=== PATIENT | male | born 1965 | race Caucasian/White ===

== ENCOUNTER 2017-09-12 09:30 | Outpatient (RCR) | payer BC, SELFPAY | END 2017-09-12 09:31 | disposition home or self-care (01) | LOC: PT 09:30 | PROVIDERS: Visit Provider Physical Medicine & Rehabilitation | DX: I63.9 Cerebral infarction, unspecified (principal) | CPT/HCPCS: 97010; 97014; 97110; 97112; 97116; G0283 ==

== ENCOUNTER → 2018-01-28 15:19 | Outpatient (POV) | payer MEDICAID, SELFPAY ==
[2018-01-28 15:41] VITALS: BP 180/95; PULSE 78; RESP 18; O2SAT 98
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
== END ==
PROVIDERS: PCP Emergency Medicine; Visit Provider Clinical Nurse Specialist Family Health
DX: M50.10 Cervical disc disorder with radiculopathy, unspecified cervical region (principal); M51.36 Other intervertebral disc degeneration, lumbar region
CPT/HCPCS: 99202

== ENCOUNTER → 2018-02-08 15:48 | Outpatient (CLI) | payer MEDICAID, SELFPAY ==
[2018-02-08 19:16] LABS: Amphetamine/Metha Screen,Urine Negative ng/mL (<1000); Barbiturates Screen,Urine Negative ng/mL (<200); Benzodiazepines Screen,Urine Negative ng/mL (<200); Cannabinoid Screen,Urine Negative ng/mL (<50); Cocaine Screen,Urine Negative ng/mL (<300); Methadone Screen,Urine Negative ng/mL (<300); Opiate Screen,Urine Positive ng/mL (<300); Phencyclidine Screen,Urine Negative ng/mL (<25)
== END ==
PROVIDERS: Visit Provider Emergency Medicine
DX: Z79.899 Other long term (current) drug therapy (principal)
CPT/HCPCS: 80305

== ENCOUNTER → 2018-03-12 18:17 | Outpatient (CLI) | payer MEDICAID, SELFPAY ==
[2018-03-12 20:51] LABS: Amphetamine/Metha Screen,Urine Negative ng/mL (<1000); Barbiturates Screen,Urine Negative ng/mL (<200); Benzodiazepines Screen,Urine Negative ng/mL (<200); Cannabinoid Screen,Urine Negative ng/mL (<50); Cocaine Screen,Urine Negative ng/mL (<300); Methadone Screen,Urine Negative ng/mL (<300); Opiate Screen,Urine Positive ng/mL (<300); Phencyclidine Screen,Urine Negative ng/mL (<25)
== END ==
PROVIDERS: Visit Provider Emergency Medicine
DX: Z79.899 Other long term (current) drug therapy (principal)
CPT/HCPCS: 80305

== ENCOUNTER → 2018-03-18 13:42 | Outpatient (POV) | payer MEDICAID, SELFPAY ==
--- NOTE | 2018-03-18 14:17 | P.CONS_ITS ---
[facility] Pain Management SOAP Note Subjective:: Patient is a pleasant 52-year-old white male who presents today for follow-up after cervical epidural steroid injection. Patient did get 3 or 4 days of relief however all of his pain has returned. Patient states most of his pain just stays in his lower neck. Patient states is worse when he makes any kind of turning movement. Patient does have an MRI showing facet joint arthropathy. Patient and I had a long conversation about medial branch blocks. Patient rates his pain a 5 out of 10 today. ROS General: no recent weight change, no fever, no sleep disturbances Respiratory: no cough, no shortness of air, no recurring pulmonary infections Cardiovascular/Peripheral Vascular: No chest pain, No palpitations, no edema, no shortness of breath. Gastrointestinal: no incontinence, normal bowel movements reported Genitourinary: no incontinence Musculoskeletal: Neck pain Psychiatric: normal mood/ affect, [denies depression], [denies anxiety] Neurological: [denies weakness in extremities], [denies balance issues] Objective:: Physical Exam General: Alert and oriented x3, no acute distress, pleasant and cooperative, [on room air] Lungs: Resps E/U, Symmetrical chest expansion, Eyes: PERRL Musculoskeletal: Flexion and extension of cervical spine somewhat guarded secondary to pain, deep tendon reflexes normal, strength in upper and lower extremities [5/5], [abnormal gait noted], positive facet loading cervical spine, positive Spurling's test Neurological: speech clear, chief technologist equal, no gross sensory deficits Assessment:: Degenerative disc disease 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 Patient and I discussed also neuro stimulation. I will give him information in regards to this. Patient is continuing a home stretching program. Patient is on anti-inflammatories. I will follow-up with him after his injection. Patient has tried and failed multiple modalities of treatment including physical therapy and oral medications. Patient is not on any anticoagulation therapy. This note was dictated using voice recognition software and may contain errors or omissions
[2018-03-18 14:24] VITALS: BP 156/89; PULSE 80; RESP 18; O2SAT 98; BMI 26.5
== END ==
PROVIDERS: PCP Emergency Medicine; Visit Provider Clinical Nurse Specialist Family Health
DX: M50.10 Cervical disc disorder with radiculopathy, unspecified cervical region (principal); M54.02 Panniculitis affecting regions of neck and back, cervical region
CPT/HCPCS: 99213

== ENCOUNTER → 2018-04-10 18:16 | Outpatient (CLI) | payer MEDICAID, SELFPAY ==
[2018-04-10 19:20] LABS: Anion Gap 13.6 mEq/L (5-15); Blood Urea Nitrogen 12 mg/dL (7-18); Calcium 9.4 mg/dL (8.5-10.1); Carbon Dioxide 27 mmol/L (21.0-32.0); Chloride 102 mmol/L (98-107); Creatinine,Serum 1.13 mg/dL (0.70-1.30); Estimated Glomerular Filt Rate 68 ml/min (>60); GFR (African American) 83 ML/MIN (>60); Glucose 115 mg/dL (74-106); Potassium 3.6 mmoL/L (3.5-5.1); Sodium 139 mmol/L (136-145)
[2018-04-10 22:43] LABS: Amphetamine/Metha Screen,Urine Negative ng/mL (<1000); Barbiturates Screen,Urine Negative ng/mL (<200); Benzodiazepines Screen,Urine Negative ng/mL (<200); Cannabinoid Screen,Urine Positive ng/mL (<50); Cocaine Screen,Urine Negative ng/mL (<300); Methadone Screen,Urine Negative ng/mL (<300); Opiate Screen,Urine Positive ng/mL (<300); Phencyclidine Screen,Urine Negative ng/mL (<25)
== END ==
PROVIDERS: Visit Provider Emergency Medicine
DX: Z79.899 Other long term (current) drug therapy (principal); I10 Essential (primary) hypertension
CPT/HCPCS: 80048; 80305

== ENCOUNTER → 2018-05-08 18:53 | Outpatient (CLI) | payer MEDICAID, SELFPAY ==
[2018-05-08 19:11] LABS: Amphetamine/Metha Screen,Urine Negative ng/mL (<1000); Barbiturates Screen,Urine Negative ng/mL (<200); Benzodiazepines Screen,Urine Negative ng/mL (<200); Cannabinoid Screen,Urine Positive ng/mL (<50); Cocaine Screen,Urine Negative ng/mL (<300); Methadone Screen,Urine Negative ng/mL (<300); Opiate Screen,Urine Negative ng/mL (<300); Phencyclidine Screen,Urine Negative ng/mL (<25)
[2018-05-14 09:21] LABS: Oxycodone (GC/MS) 377 ng/mL (Cutoff=100)
[2018-05-15 13:04] LABS: Opiates Negative (Cutoff=100); Oxymorphone (GC/MS) 1391 ng/mL (Cutoff=100)
== END ==
PROVIDERS: Visit Provider Emergency Medicine
DX: Z79.899 Other long term (current) drug therapy (principal)
CPT/HCPCS: 80305; 80361; 80365; G0480

== ENCOUNTER → 2018-05-13 12:45 | Outpatient (POV) | payer MEDICAID, SELFPAY ==
[2018-05-13 13:03] VITALS: BP 148/90; PULSE 81; RESP 18; O2SAT 98; BMI 26.6
--- NOTE | 2018-05-13 13:26 | HMH.PAINSOAP ---
[facility] Pain Management SOAP Note Subjective:: 52-year-old white male who presents today for follow-up after cervical facet joint injections. Patient states that he does not recall it helping much however he has had a new back pain that is been worse. He states he feels a pinching in his back. He has no recent MRI imaging. Patient was seen by his primary care physician and given Percocet. Patient has not taken this yet. Patient states that the pain is in his mid low back radiating into both legs. He states he has weakness as well. Patient was seen by a neurologist at to be analyzed for MS however he has not heard back from them. He rates his pain a 9 out of 10 today. Comparing it to kidney stone pain is the only pain that has been worse. ROS General: no recent weight change, no fever, no sleep disturbances Respiratory: no cough, no shortness of air, no recurring pulmonary infections Cardiovascular/Peripheral Vascular: No chest pain, No palpitations, no edema, no shortness of breath. Gastrointestinal: no incontinence, normal bowel movements reported Genitourinary: no incontinence Musculoskeletal: Back pain, leg pain Psychiatric: normal mood/ affect Neurological: [denies weakness in extremities], [denies balance issues] Objective:: Physical Exam General: Alert and oriented x3, no acute distress, pleasant and cooperative, [on room air] Lungs: Resps E/U, Symmetrical chest expansion, Eyes: PERRL Musculoskeletal: Flexion and extension of lumbar spine somewhat guarded secondary to pain, deep tendon reflexes normal, strength in upper and lower extremities [5/5], [abnormal gait noted] Neurological: speech clear, brass finisher equal, no gross sensory deficits Assessment:: Degenerative disc disease cervical and lumbar spine with lumbar radiculopathy Plan:: We will send the patient to Dr. Mckenzie for evaluation in regards to the MS. We will also get a new MRI to determine new pathology. We will also give him a few days worth of steroids to help with the increased pain. This note was dictated using voice recognition software and may contain errors or omissions
--- NOTE | 2018-05-13 13:29 | P.CONS_ITS ---
[facility] Pain Management SOAP Note Subjective:: 52-year-old white male who presents today for follow-up after cervical facet joint injections. Patient states that he does not recall it helping much however he has had a new back pain that is been worse. He states he feels a pinching in his back. He has no recent MRI imaging. Patient was seen by his primary care physician and given Percocet. Patient has not taken this yet. Patient states that the pain is in his mid low back radiating into both legs. He states he has weakness as well. Patient was seen by a neurologist at to be analyzed for MS however he has not heard back from them. He rates his pain a 9 out of 10 today. Comparing it to kidney stone pain is the only pain that has been worse. ROS General: no recent weight change, no fever, no sleep disturbances Respiratory: no cough, no shortness of air, no recurring pulmonary infections Cardiovascular/Peripheral Vascular: No chest pain, No palpitations, no edema, no shortness of breath. Gastrointestinal: no incontinence, normal bowel movements reported Genitourinary: no incontinence Musculoskeletal: Back pain, leg pain Psychiatric: normal mood/ affect Neurological: [denies weakness in extremities], [denies balance issues] Objective:: Physical Exam General: Alert and oriented x3, no acute distress, pleasant and cooperative, [on room air] Lungs: Resps E/U, Symmetrical chest expansion, Eyes: PERRL Musculoskeletal: Flexion and extension of lumbar spine somewhat guarded secon oneil to pain, deep tendon reflexes normal, strength in upper and lower extremities [5/5], [abnormal gait noted] Neurological: speech clear, fence erector equal, no gross sensory deficits Assessment:: Degenerative disc disease cervical and lumbar spine with lumbar radiculopathy Plan:: We will send the patient to Dr. Mckenzie for evaluation in regards to the MS. We will also get a new MRI to determine new pathology. We will also give him a few days worth of steroids to help with the increased pain. This note was dictated using voice recognition software and may contain errors or omissions
== END ==
PROVIDERS: PCP Emergency Medicine; Visit Provider Clinical Nurse Specialist Family Health
DX: M50.30 Other cervical disc degeneration, unspecified cervical region (principal); M51.16 Intervertebral disc disorders with radiculopathy, lumbar region
CPT/HCPCS: 99213

== ENCOUNTER → 2018-05-27 13:13 | Outpatient (POV) | payer MEDICAID, SELFPAY ==
--- NOTE | 2018-05-27 13:51 | HMH.PAINSOAP ---
[facility] Pain Management SOAP Note Subjective:: Patient is a pleasant 52-year-old white male who presents today for follow-up. Patient was denied his MRI. Patient is continuing his stretching program he still having quite a bit of low back pain. Patient does have a history of degenerative disc disease. Patient was also seen at to determine if potentially he had MS. We have tried to refer him to Dr. Mckenzie. Dr. Mckenzie's offices that at this time she has denied his referral. Patient not have a way to get to . He rates his pain a 9 out of 10. Mostly in his low back and legs. ROS General: no recent weight change, no fever, no sleep disturbances Respiratory: no cough, no shortness of air, no recurring pulmonary infections Cardiovascular/Peripheral Vascular: No chest pain, No palpitations, no edema, no shortness of breath. Gastrointestinal: no incontinence, normal bowel movements reported Genitourinary: no incontinence Musculoskeletal: Back pain, leg pain Psychiatric: normal mood/ affect Neurological: [denies weakness in extremities], [denies balance issues] Objective:: Physical Exam General: Alert and oriented x3, no acute distress, pleasant and cooperative, [on room air] Lungs: Resps E/U, Symmetrical chest expansion, Eyes: PERRL Musculoskeletal: Flexion and extension of lumbar spine somewhat guarded secondary to pain, deep tendon reflexes normal, strength in upper and lower extremities [5/5], [abnormal gait noted] positive straight leg test bilaterally at 30 degrees Neurological: speech clear, group home worker equal, no gross sensory deficits Assessment:: Degenerative disc disease cervical and lumbar spine with lumbar radiculopathy Plan:: We will set him up for an L4-L5 lumbar epidural steroid injection with another attempt at getting a lumbar MRI to determine new pathology given his new and increased pain. I will follow-up with up after this. He denied any anti-coagulation therapy. He is currently on anti-inflammatories. Dr. Rodriguez has reviewed this note and agrees with this plan of care. This note was dictated using voice recognition software and may contain errors or omissions
[2018-05-27 14:02] VITALS: BP 132/81; PULSE 75; RESP 18; O2SAT 98; BMI 26.6
--- NOTE | 2018-05-27 14:04 | P.CONS_ITS ---
[facility] Pain Management SOAP Note Subjective:: Patient is a pleasant 52-year-old white male who presents today for follow-up. Patient was denied his MRI. Patient is continuing his stretching program he still having quite a bit of low back pain. Patient does have a history of degenerative disc disease. Patient was also seen at to determine if potentially he had MS. We have tried to refer him to Dr. Mckenzie. Dr. Mckenzie's offices that at this time she has denied his referral. Patient not have a way to get to . He rates his pain a 9 out of 10. Mostly in his low back and legs. ROS General: no recent weight change, no fever, no sleep disturbances Respiratory: no cough, no shortness of air, no recurring pulmonary infections Cardiovascular/Peripheral Vascular: No chest pain, No palpitations, no edema, no shortness of breath. Gastrointestinal: no incontinence, normal bowel movements reported Genitourinary: no incontinence Musculoskeletal: Back pain, leg pain Psychiatric: normal mood/ affect Neurological: [denies weakness in extremities], [denies balance issues] Objective:: Physical Exam General: Alert and oriented x3, no acute distress, pleasant and cooperative, [on room air] Lungs: Resps E/U, Symmetrical chest expansion, Eyes: PERRL Musculoskeletal: Flexion and extension of lumbar spine somewhat guarded secondary to pain, deep tendon reflexes normal, strength in upper and lower extremities [5/5], [abnormal gait noted] positive straight leg test bilaterally at 30 degrees Neurological: speech clear, orthopedics nurse equal, no gross sensory deficits Assessment:: Degenerative disc disease cervical and lumbar spine with lumbar radiculopathy Plan:: We will set him up for an L4-L5 lumbar epidural steroid injection with another attempt at getting a lumbar MRI to determine new pathology given his new and increased pain. I will follow-up with up after this. He denied any anti- coagulation therapy. He is currently on anti-inflammatories. Dr. Rodriguez has reviewed this note and agrees with this plan of care. This note was dictated using voice recognition software and may contain errors or omissions
== END ==
PROVIDERS: PCP Emergency Medicine; Visit Provider Clinical Nurse Specialist Family Health
DX: M51.16 Intervertebral disc disorders with radiculopathy, lumbar region (principal)
CPT/HCPCS: 99213

== ENCOUNTER → 2018-06-18 08:41 | Outpatient (POV) | payer MEDICAID, SELFPAY ==
[2018-06-18 08:56] VITALS: BP 156/92; PULSE 71; RESP 18; O2SAT 99; BMI 26.6
--- NOTE | 2018-06-18 09:49 | HMH.PAINSOAP ---
[facility] Pain Management SOAP Note Subjective:: Patient is a pleasant 52-year-old white male who presents today for follow-up. Patient has been denied for a epidural injection. He is also been denied for an MRI. Patient states he has a new pain in his back which is a pinching sensation. Patient rates his pain today an 8 out of 10. Patient is currently doing a home exercise program however he is not getting much relief from it. He is on anti-inflammatories. He has had this pain for over 4 months. ROS General: no recent weight change, no fever, no sleep disturbances Respiratory: no cough, no shortness of air, no recurring pulmonary infections Cardiovascular/Peripheral Vascular: No chest pain, No palpitations, no edema, no shortness of breath. Gastrointestinal: no incontinence, normal bowel movements reported Genitourinary: no incontinence Musculoskeletal: Back pain, leg pain Psychiatric: normal mood/ affect, [denies depression], [denies anxiety] Neurological: Weakness in bilateral lower extremities, [denies balance issues] Objective:: Physical Exam General: Alert and oriented x3, no acute distress, pleasant and cooperative, [on room air] Lungs: Resps E/U, Symmetrical chest expansion, Eyes: PERRL Musculoskeletal: Flexion and extension of lumbar spine somewhat guarded secondary to pain, deep tendon reflexes normal, strength in upper extremities 5/5 and lower extremities [4/5], [abnormal gait noted] Neurological: speech clear, waistline joiner equal, sensory deficit to touch bilateral lower extremities Assessment:: Degenerative disc disease lumbar spine with lumbar radiculopathy Plan:: Patient does have an MRI of his thoracic spine showing potential compression in his lower back. I believe an MRI or epidural injection would be beneficial for the patient. We will discuss this with his insurance company and reassess his options. Dr. Rodriguez has reviewed this note and agrees with this plan of care. This note was dictated using voice recognition software and may contain errors or omissions
--- NOTE | 2018-06-18 09:52 | P.CONS_ITS ---
[facility] Pain Management SOAP Note Subjective:: Patient is a pleasant 52-year-old white male who presents today for follow-up. Patient has been denied for a epidural injection. He is also been denied for an MRI. Patient states he has a new pain in his back which is a pinching sensation. Patient rates his pain today an 8 out of 10. Patient is currently doing a home exercise program however he is not getting much relief from it. He is on anti-inflammatories. He has had this pain for over 4 months. ROS General: no recent weight change, no fever, no sleep disturbances Respiratory: no cough, no shortness of air, no recurring pulmonary infections Cardiovascular/Peripheral Vascular: No chest pain, No palpitations, no edema, no shortness of breath. Gastrointestinal: no incontinence, normal bowel movements reported Genitourinary: no incontinence Musculoskeletal: Back pain, leg pain Psychiatric: normal mood/ affect, [denies depression], [denies anxiety] Neurological: Weakness in bilateral lower extremities, [denies balance issues] Objective:: Physical Exam General: Alert and oriented x3, no acute distress, pleasant and cooperative, [on room air] Lungs: Resps E/U, Symmetrical chest expansion, Eyes: PERRL Musculoskeletal: Flexion and extension of lumbar spine somewhat guarded secondary to pain, deep tendon reflexes normal, strength in upper extremities 5/5 and lower extremities [4/5], [abnormal gait noted] Neurological: speech clear, animal caretaker equal, sensory deficit to touch bilateral lowe r extremities Assessment:: Degenerative disc disease lumbar spine with lumbar radiculopathy Plan:: Patient does have an MRI of his thoracic spine showing potential compression in his lower back. I believe an MRI or epidural injection would be beneficial for the patient. We will discuss this with his insurance company and reassess his options. Dr. Rodriguez has reviewed this note and agrees with this plan of care. This note was dictated using voice recognition software and may contain errors or omissions
== END ==
PROVIDERS: PCP Emergency Medicine; Visit Provider Clinical Nurse Specialist Family Health
DX: M51.16 Intervertebral disc disorders with radiculopathy, lumbar region (principal)
CPT/HCPCS: 99213

== ENCOUNTER 2018-07-23 14:50 | Observation (INO) ==
--- NOTE | 2018-07-23 15:26 | Emergency Department Note ---
ED Disposition Clinical Impression: Chest pain Qualifiers: Chest pain type: unspecified Qualified Code(s): R07.9 - Chest pain, unspecified Dyspnea Qualifiers: Dyspnea type: shortness of breath Qualified Code(s): R06.02 - Shortness of breath Disposition: Admitted as Observation Condition on Discharge: Good - Critical Care Critical Care Time: No Attestation: On 07/23/18, the high probability of a clinically significant, sudden or life threatening deterioration of the following system(s) required my full and direct attention, intervention and personal management. The time I documented below is in addition to time spent performing reported procedures but includes the following listed in this critical care notation. Medical Decision Making - Anurag Inquiry Pt receiving controlled substance: No Vital Signs: 07/23/18 14:54 07/23/18 15:22 07/23/18 15:25 Temperature 98.0 F Temperature Source Oral Pulse Rate [Right Radial] 88 69 67 Respiratory Rate 18 20 Blood Pressure [Right Arm] 165/102 H 165/102 H 150/87 H Blood Pressure Mean [Right Arm] 123 123 108 Blood Pressure Source [Right Arm] Automatic Cuff Automatic Cuff Automatic Cuff Blood Pressure Position [Right Arm] Sitting Sitting Sitting 02 Sat by Pulse Oximetry 99 98 98 Oxygen Delivery Method Room Air Room Air Room Air 07/23/18 16:25 Temperature Temperature Source Pulse Rate [Right Radial] 83 Respiratory Rate 18 Blood Pressure [Right Arm] 163/108 H Blood Pressure Mean [Right Arm] 126 Blood Pressure Source [Right Arm] Automatic Cuff Blood Pressure Position [Right Arm] Sitting 02 Sat by Pulse Oximetry 96 Oxygen Delivery Method Room Air - Lab Data Lab Results 07/23/18 15:18: WBC 8.6, RBC 5.16, Hgb 15.2, Hct 46.1, MCV 89.2, MCH 29.5, MCHC 33.0, RDW 13.8, Plt Count 243, MPV 7.5, Neut % (Auto) 60.5, Lymph % (Auto) 29.5, [place] % (Auto) 7.0, Eos % (Auto) 2.0, Baso % (Auto) 0.9, Neut # (Auto) 5.2, Lymph # (Auto) 2.5, [place] # (Auto) 0.6, Eos # (Auto) 0.2, Baso # (Auto) 0.1 07/23/18 15:18: Sodium 140, Potassium 3.9, Chloride 103, Carbon Dioxide 27, Anion Gap 13.9, BUN 9, Creatinine 1.21, Estimated Creat Clear 84, Estimated GFR 63, Est GFR ( Amer) 76, Glucose 98, Calcium 9.5, Total Bilirubin 0.5, AST 18, ALT 21, Alkaline Phosphatase 64, Troponin I < 0.02, Total Protein 7.7, Albumin 4.1, Globulin 3.6 H, Albumin/Globulin Ratio 1.1 07/23/18 17:09: Urine Color Yellow, Urine Appearance Clear, Urine pH 7.5, Ur Specific [place] 1.015, Urine Protein Negative, Urine Glucose (UA) Negative, Urine Ketones Negative, Urine Blood 1+, Urine Nitrate Negative, Urine Bilirubin Negative, Urine Urobilinogen 0.2, Ur Leukocyte Esterase 2+ A, Urine RBC Occasional, Urine WBC 10-20, Ur Squamous Epith Cells Occasional, Urine Bacteria Trace Result diagrams: 07/23/18 15:18 07/23/18 15:18 Orders (Tests/Meds): ED MEDICATIONS Generic Name Dose Route Start Last Admin Trade Name Cindy PRN Reason Stop Dose Admin Amlodipine Besylate 10 mg 07/24/18 09:00 Norvasc 10mg Tablet PO 08/23/18 08:59 DAILY MICHAEL Aspirin 81 mg 07/24/18 09:00 Aspirin 81mg Enteric Coated Tablet PO 08/23/18 08:59 DAILY [facility] Atorvastatin Calcium 40 mg 07/24/18 09:00 Lipitor 40mg Tablet PO 08/23/18 08:59 DAILY [facility] Lisinopril 20 mg 07/23/18 21:00 Zestril 20mg Tab PO 08/22/18 20:59 BID [facility] Oxycodone/Acetaminophen 1 each 07/23/18 16:31 Percocet 5/325mg Tablet PO 08/22/18 16:30 BID PRN pain Sodium Chloride 10 ml 07/23/18 16:31 Saline Flush 10ml Syringe IV 08/22/18 15:07 NEEDED PRN Maintain IV Site Discontinued Medications Generic Name Dose Route Start Last Admin Trade Name Frekimberly PRN Reason Stop Dose Admin Ondansetron HCl 4 mg 07/23/18 17:11 07/23/18 17:13 Zofran 4mg/2ml Vial IV 07/23/18 17:12 4 mg ONCE ONE Administration Oxycodone/Acetaminophen 1 each 07/23/18 17:17 07/23/18 17:19 Percocet 5/325mg Tablet PO 07/23/18 17:18 1 each ONCE ONE Administration Sodium Chloride 10 ml 07/23/18 15:08 Saline Flush 10ml Syringe IV 08/22/18 15:07 NEEDED PRN Maintain IV Site ORDERS Category Date Time Status Consult to Physician [CONS] Routine Cons 07/23/18 16:31 Ordered Troponin I Q3H Lab 07/23/18 22:15 Ordered - ECG Data Tracing #1 EKG interpreted by Romie Martínez MD: Rhythm: sinus Rate: 73 [place]: normal Ectopy: none Conduction: normal ST Segment Changes: none T Wave Changes: none Q Waves: none No evidence of acute ischemia or injury Baseline artifact present, but I consider the EKG adequate for accurate i nterpretation. - NERIS Score for Non-Stemi Age of Patient: 50-59 years old Heart Rate: 70-89 bpm Systolic Blood Pressure: 160-199 mmHg Serum Creatinine: 1.20-1.59 mg/dl CHF [place] Class: I-No CHF Other Risk Factors: None Non-Stemi Risk Score: 70 General Adult HPI - General Chief complaint: Shortness of Breath/Dyspnea Stated complaint: feels funny, high blood pressure Time Seen by Provider: 07/23/18 15:25 Mode of Arrival: Ambulatory Limitations: No Limitations Description of Symptoms (Recalled from ER Triage Doc. by RN): Pt reports SOA x3 days. Pt reports lastnight he felt like he had something sitting on his chest. Pt denies cough. Pt reports he was seen at PCP office today for a check up and send to ER for further evaluation. Pt denies SOA - History of Present Illness HPI narrative: States before bed a couple of days ago he developed heaviness or pressure in his chest with shortness of breath. It lasted a couple of hours and then he went to bed. It was still there when he went to sleep. It was much better when he got up but he does not know that it was completely gone. It occurred again last night except only with shortness of breath, no chest pressure. Again it lasted a couple of hours. Today he says he just seems to have trouble getting a deep breath. He already had a routine appointment with Dr. Thakur today to get his medications refilled and saw him about this as well. Sent to the emergency room for workup and to be admitted for cardiac evaluation. The patient has hypertension and hyperlipidemia. Prior stroke. Former smoker for 40 years, quit earlier this year. No known coronary artery disease. Father had some sort of heart problem, otherwise no family history of coronary artery disease known. The patient does not have diabetes. He has not had prior cardiac workup. Dr. Thakur states that he will call Dr. Silverman. - Related Data Home Medications Medication Instructions Recorded Confirmed aspirin 81 mg tablet,delayed 81 mg PO DAILY tab 08/22/17 07/23/18 release Previous Rx's Medication Instructions Recorded amlodipine 10 mg tablet 10 mg PO DAILY #90 tab 04/05/18 atorvastatin 40 mg tablet 40 mg PO DAILY #90 tab 04/05/18 lisinopril 20 mg tablet 20 mg PO BID #180 tab 04/05/18 oxycodone-acetaminophen 5 mg-325 1 tab PO BID PRN #60 tab 05/08/18 mg tablet Allergies Allergy/AdvReac Type Severity Reaction Status Date / Time No Known Allergies Allergy Verified 05/08/18 15:47 [facility] History - Hepatitis A Screen Drug use history?: No High risk sexual behaviors?: No History of sexually transmitted infection?: No Currently employed?: No Childcare worker?: No Do you have indoor plumbing?: Yes Do you have electricity?: Yes Attestation statement:: This patient has been screened for Hepatitis A risk factors. I have reviewed the patient's past medical history: Yes Medical History: Reports:: Cerebrovascular Accident, Hyperlipidemia, Hypertension, Transient Ischemic Attacks (TIA) Denies:: Cancer, Diabetes Mellitus Type 1, Diabetes Mellitus Type 2, MRSA, Seizures Other Medical History: Denies: Blood Transfusion Reaction Other Surgeries: Yes: No Previous Surgery Amputation: No Fractures: Yes (back) Comment: broken back x 2 - Social History Smoking Status: Former smoker Tobacco Type: cigarettes # Packs/Day (cigarettes): 2 Alcohol Intake: never Alcohol Intake Frequency:: holidays/special occasions only Substance Use Type: denies use Occupational Status: unemployed, disabled Housing: house Household Members: none - Psychiatric History Expresses thoughts of harming self/others: None Suicide Plan Description: No Plan Family Hx:: Cancer ROS Obtained: Yes All systems reviewed & no additional complaints - Constitutional Constitutional: Denies fever(s) - ENT Ears, Nose, Mouth, and Throat: Denies nasal congestion, Denies nasal discharge, Denies sore throat - Cardiovascular Cardiovascular: Reports chest pain (Heaviness), Denies diaphoresis, Denies leg edema - Respiratory Respiratory: No cough, Yes dyspnea - Gastrointestinal Gastrointestingal: Denies: abdominal pain, nausea, vomiting - Musculoskeletal Musculoskeletal: Reports other (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 Absent: respiratory distress - Cardiovascular Cardiovascular exam: Present: regular rate, normal rhythm, normal heart sounds - Abdominal Exam Abdominal exam: Present: soft. Absent: distention, tenderness - Extremities Exam Extremities exam: Absent: tenderness - Neurological Exam Neurological exam: Present: alert, oriented X3 - Psychiatric Psychiatric exam: Present: normal affect, normal mood - Skin Skin exam: Present: warm, dry
[2018-07-23 15:47] LABS: Basophils # 0.1 K/mm3 (0-0.2); Basophils % 0.9 % (0.1-2.0); Eosinophils # 0.2 K/mm3 (0.0-0.4); Hematocrit 46.1 % (42.0-52.0); Hemoglobin 15.2 g/dL (14.1-18.0); Lymphocytes # 2.5 K/mm3 (0.7-4.5); Lymphocytes % 29.5 % (10-50); Mean Corpuscular Hemoglobin 29.5 pg (27.0-31.2); Mean Corpuscular Volume 89.2 fl (80-94); Mean Platelet Volume 7.5 fl (7.4-10.4); Monocytes # 0.6 K/mm3 (0.1-1.0); Neutrophils # 5.2 K/mm3 (1.8-7.8); Neutrophils % 60.5 % (37.0-80.0); Platelet Count 243 K/mm3 (142-424); Red Blood Count 5.16 M/mm3 (4.60-6.20); Red Cell Distribution Width 13.8 % (11.5-17.5); White Blood Count 8.6 K/mm3 (4.8-10.8)
[2018-07-23 15:56] LABS: Alanine Aminotransferase 21 U/L (12-78); Albumin Level 4.1 gm/dL (3.4-5.0); Albumin/Globulin Ratio 1.1 (1.1-1.8); Alkaline Phosphatase 64 U/L (46-116); Anion Gap 13.9 mEq/L (5-15); Aspartate Amino Transferase 18 U/L (15-37); Bilirubin,Total 0.5 mg/dL (0.2-1.0); Blood Urea Nitrogen 9 mg/dL (7-18); Calcium 9.5 mg/dL (8.5-10.1); Carbon Dioxide 27 mmol/L (21.0-32.0); Chloride 103 mmol/L (98-107); Globulin 3.6 gm/dl (1.3-3.2); Glucose 98 mg/dL (74-106); Potassium 3.9 mmoL/L (3.5-5.1); Sodium 140 mmol/L (136-145); Total Protein,Serum 7.7 gm/dL (6.4-8.2)
[2018-07-23 17:54] LABS: Microscopic, Urine URINE MICROSCOPIC (MICROSCOPIC)
[2018-07-23 17:57] LABS: Appearance,Urine CLEAR (Clear); Bilirubin,Urine Negative (Negative); Blood, Urine 1+ (Negative); Color,Urine YELLOW (Yellow); Glucose,Urine (UA) Negative (Negative); Ketones,Urine Negative (Negative); Leukocyte Esterase,Urine 2+ (Negative); PH,Urine 7.5 (5.0-8.5); Protein,Urine Negative (Negative); Specific Gravity, Urine 1.015 (1.005-1.030); Urobilinogen,Urine 0.2 EU/dl (0.2)
[2018-07-23 18:28] LABS: RBC,Urine Occasional #/hpf (0-3)
[2018-07-23 18:29] LABS: Bacteria,Urine Trace /lpf; Squamous Epithelial Cell,Urine Occasional #/hpf (0-5)
--- NOTE | 2018-07-23 20:21 | History & Physical Report ---
*Admission Date: 07/23/18 *Chief complaint: chest pain *History of present illness: this wm presented to pcp office with progressive ant chest pain described as tightness - he reported pain at rest - he was sent to ed for eval-tates before bed a couple of days ago he developed heaviness or pressure in his chest with shortness of breath. It lasted a couple of hours and then he went to bed. It was still there when he went to sleep. It was much better when he got up but he does not know that it was completely gone. It occurred again last night except only with shortness of breath, no chest pressure. Again it lasted a couple of hours. Today he says he just seems to have trouble getting a deep breath. He already had a routine appointment with Dr. Thakur today to get his medications refilled and saw him about this as well. Sent to the emergency room for workup and to be admitted for cardiac evaluation. The patient has hypertension and hyperlipidemia. Prior stroke. Former smoker for 40 years, quit earlier this year. No known coronary artery disease. Father had some sort of heart problem, otherwise no family history of coronary artery disease known. The patient does not have diabetes. He has not had prior cardiac workup. Dr. Thakur states that he will call Dr. Silverman. [facility] History I have reviewed the patient's past medical history: Yes Medical History: Reports:: Cerebrovascular Accident, Hyperlipidemia, Hyperte nsion, Transient Ischemic Attacks (TIA) Denies:: Cancer, Diabetes Mellitus Type 1, Diabetes Mellitus Type 2, MRSA, Seizures *Have you ever received a pneumonia vaccine?: No *Have you received a flu vaccine this season?: No Other Medical History: Denies: Blood Transfusion Reaction Other Surgeries: Yes: No Previous Surgery Amputation: No Fractures: Yes (back) - *Social History Educational Level: Attended High School Smoking Status: Former smoker Tobacco Type: cigarettes # Packs/Day (cigarettes): 2 #Yrs smoked (if former smoker): 25 Smoking End Date: 04/29/2018 Alcohol Intake: never Alcohol Intake Frequency:: holidays/special occasions only Substance Use Type: denies use Last Used Substance: days (ago) *Occupational Status:: unemployed, disabled Housing: house Household Members: none *Travel in the last 8 weeks: None - Psychiatric History Expresses thoughts of harming self/others: None Suicide Plan Description: No Plan Family Hx:: Cancer Review of Systems - Review of Systems Review of systems:: pertinent systems reviewed and negative unless documented below - Constitutional Denies fever(s) - Eyes Denies change in vision - ENT Denies sore throat - *Cardiovascular Reports chest pain at rest, Reports chest pain with activity, Denies shortness of breath - *Respiratory Denies cough - *Gastrointestinal Denies vomiting - *Genitourinary Denies blood in urine - *Musculoskeletal Denies neck pain - Integumentary/Breasts Denies rash - *Neurologic Denies headache(s) - Psychiatric Denies anxiety Meds Home Medications Medication Instructions Recorded Confirmed Type aspirin 81 mg tablet,delayed 81 mg PO DAILY tab 08/22/17 07/23/18 History release amlodipine 10 mg tablet 10 mg PO DAILY #90 tab 04/05/18 07/23/18 Rx atorvastatin 40 mg tablet 40 mg PO DAILY #90 tab 04/05/18 07/23/18 Rx lisinopril 20 mg tablet 20 mg PO BID #180 tab 04/05/18 07/23/18 Rx oxycodone-acetaminophen 5 mg-325 1 tab PO BID PRN #60 tab 05/08/18 07/23/18 Rx mg tablet Allergies Allergy/AdvReac Type Severity Reaction Status Date / Time No Known Allergies Allergy Verified 05/08/18 15:47 Exam Vital signs and Labs for Last 24 Hours: Temp Pulse Resp BP Pulse Ox 98.1 F 82 17 148/83 H 98 07/23/18 20:00 07/23/18 20:00 07/23/18 20:00 07/23/18 20:00 07/23/18 20:00 Laboratory Results - last 24 hr 07/23/18 15:18: WBC 8.6, RBC 5.16, Hgb 15.2, Hct 46.1, MCV 89.2, MCH 29.5, MCHC 33.0, RDW 13.8, Plt Count 243, MPV 7.5, Neut % (Auto) 60.5, Lymph % (Auto) 29.5, [place] % (Auto) 7.0, Eos % (Auto) 2.0, Baso % (Auto) 0.9, Neut # (Auto) 5.2, Lymph # (Auto) 2.5, [place] # (Auto) 0.6, Eos # (Auto) 0.2, Baso # (Auto) 0.1 07/23/18 15:18: Sodium 140, Potassium 3.9, Chloride 103, Carbon Dioxide 27, Anion Gap 13.9, BUN 9, Creatinine 1.21, Estimated Creat Clear 84, Estimated GFR 63, Est GFR ( Amer) 76, Glucose 98, Calcium 9.5, Total Bilirubin 0.5, AST 18, ALT 21, Alkaline Phosphatase 64, Troponin I < 0.02, Total Protein 7.7, Albumin 4.1, Globulin 3.6 H, Albumin/Globulin Ratio 1.1 07/23/18 17:09: Urine Color Yellow, Urine Appearance Clear, Urine pH 7.5, Ur Specific [employer] 1.015, Urine Protein Negative, Urine Glucose (UA) Negative, Urine Ketones Negative, Urine Blood 1+, Urine Nitrate Negative, Urine Bilirubin Negative, Urine Urobilinogen 0.2, Ur Leukocyte Esterase 2+ A, Urine RBC Occasional, Urine WBC 10-20, Ur Squamous Epith Cells Occasional, Urine Bacteria Trace 07/23/18 19:09: Troponin I < 0.02 I & O for Last 24 hours: Intake & Output 07/21/18 07/22/18 07/23/18 07/24/18 11:59 11:59 11:59 11:59 Intake Total 240 / 240 Balance 240 / 240 Weight 176 lb 4 oz - Constitutional no acute distress - *Routine HEENT Exam Head: Present: normocephalic Eye: Present: EOMI, PERRL ENT: Present: mucous membranes dry - *Routine Neck Exam Absent: JVD - *Routine Respiratory Exam Present: CTA bilaterally - *Routine Cardiovascular Exam Present: RRR, murmur. Absent: rubs - *Routine Abdominal Exam Present: soft - *Routine Extremities Exam Absent: calf tenderness - *Routine Skin Exam Present: intact - *Routine Neurological Exam Present: alert, oriented X3, CN II-XII intact - Routine Psychiatric Exam Present: normal affect Assessment and Plan (1) Cerebrovascular accident (CVA) Current visit: Yes Status: Acute Category: Medical Code(s): I63.9 - Cerebral infarction, unspecified (2) Chest pain Current visit: Yes Status: Acute Qualifiers: Chest pain type: unspecified Qualified Code(s): R07.9 - Chest pain, unspecified Category: Medical Code(s): R07.9 - Chest pain, unspecified (3) Hypertension Current visit: No Status: Acute Qualifiers: Hypertension type: essential hypertension Qualified Code(s): I10 - Essential (primary) hypertension Category: Medical Code(s): I10 - Essential (primary) hypertension (4) Degenerative disc disease, cervical Current visit: No Status: Chronic Category: Medical Code(s): M50.30 - Other cervical disc degeneration, unspecified cervical region (5) Degenerative disc disease, lumbar Current visit: No Status: Chronic Category: Medical Code(s): M51.36 - Other intervertebral disc degeneration, lumbar region (6) UTI (urinary tract infection) Current visit: Yes Status: Acute Qualifiers: Urinary tract infection type: site unspecified Hematuria presence: without hematuria Qualified Code(s): N39.0 - Urinary tract infection, site not speci fied Category: Medical Code(s): N39.0 - Urinary tract infection, site not specified
--- NOTE | 2018-07-24 07:59 | Pharmacy Consult Notes ---
[facility] Pharmacy VTE Monitoring - Patient Demographics Admission date: 07/23/18 Report Date: 07/24/18 Time: 07:59 Allergies/Adverse Reactions: Patient Allergies No Known Allergies Allergy (Verified 05/08/18 15:47) Height: 1.78 m Weight: 79.946 kg Patient Problems: Current Active Problems Chest pain (Acute) Dyspnea (Acute) Cerebrovascular accident (CVA) (Acute) UTI (urinary tract infection) (Acute) - VTE Risk Labs: VTE Related Lab Results Hgb 15.2 g/dL (14.1-18.0) 07/23/18 15:18 Hct 46.1 % (42.0-52.0) 07/23/18 15:18 Plt Count 243 K/mm3 (142-424) 07/23/18 15:18 BUN 9 mg/dL (7-18) 07/23/18 15:18 Creatinine 1.21 mg/dL (0.70-1.30) 07/23/18 15:18 Estimated Creat Clear 84 mL/min (50-200) 07/23/18 15:18 Was VTE Risk Assessment Performed: Yes VTE Score: 1 VTE Risk Level: Very Low Risk Clinical Trial Participant: No - Prophylaxis VTE Prophylaxis Ordered?: Yes Types of VTE Prophylaxis: TEDS Knee High Location of Applied Device: Refused
--- NOTE | 2018-07-24 10:30 | Consult Report ---
History of Present Illness Consult date: 07/24/18 Requesting physician: Smooth Thakur Consult reason: chest pain Chief complaint: Chest pain History of present illness: This is a 52-year-old gentleman who was seen by Dr. Thakur yesterday for a routine follow-up and reported that he had been having chest pain. The patient states that a few nights ago he was extremely short of breath when he went to bed. He states that he was having a difficult time taking a breath and it did bother him enough to where he considered going to the emergency department. However, the patient went on to sleep and knew that he had an appointment coming up with his primary care provider, Dr. Thakur. He states the next day he woke up and felt like someone was sitting on his chest. He states that this was a heavy tight sensation in the center of his chest. He states that it was radiating to his left arm and causing numbness in his left hand. He states nothing was improving or worsening his symptoms. It was associated with shortness of breath and diaphoresis. He states that this was at least a moderate sensation in intensity. He does have known hypertension, hyperlipidemia and stop smoking at the beginning of the year. He does report that his father has heart disease and his mother has thyroid cancer. He denies any fever, chills, nausea, vomiting, diarrhea, PND or orthopnea. [facility] History I have reviewed the patient's past medical history: Yes Medical History: Reports:: Cerebrovascular Accident, Hyperlipidemia, Hypertension, Transient Ischemic Attacks (TIA) Denies:: Cancer, Diabetes Mellitus Type 1, Diabetes Mellitus Type 2, MRSA, Seizures *Have you ever received a pneumonia vaccine?: No *Have you received a flu vaccine this season?: No Other Medical History: Denies: Blood Transfusion Reaction Other Surgeries: Yes: No Previous Surgery Amputation: No Fractures: Yes (back) - *Social History Educational Level: Attended High School Smoking Status: Former smoker Tobacco Type: cigarettes # Packs/Day (cigarettes): 2 #Yrs smoked (if former smoker): 25 Smoking End Date: 04/29/2018 Alcohol Intake: never Alcohol Intake Frequency:: holidays/special occasions only Substance Use Type: denies use Last Used Substance: days (ago) *Occupational Status:: unemployed, disabled Housing: house Household Members: none *Travel in the last 8 weeks: None - Psychiatric History Expresses thoughts of harming self/others: None Suicide Plan Description: No Plan Family Hx:: Cancer Meds Home Medications Medication Instructions Recorded Confirmed Type aspirin 81 mg tablet,delayed 81 mg PO DAILY tab 08/22/17 07/23/18 History release amlodipine 10 mg tablet 10 mg PO DAILY #90 tab 04/05/18 07/23/18 Rx atorvastatin 40 mg tablet 40 mg PO DAILY #90 tab 04/05/18 07/23/18 Rx lisinopril 20 mg tablet 20 mg PO BID #180 tab 04/05/18 07/23/18 Rx oxycodone-acetaminophen 5 mg-325 1 tab PO BID PRN #60 tab 05/08/18 07/23/18 Rx mg tablet Allergies Allergy/AdvReac Type Severity Reaction Status Date / Time No Known Allergies Allergy Verified 05/08/18 15:47 Review of Systems - Review of Systems Review of systems:: pertinent systems reviewed and negative unless documented below - *Cardiovascular Reports chest pain, Reports chest pain at rest, Reports chest pain with activity, Reports shortness of breath, Reports shortness of breath with activity, Reports radiating jaw, neck or arm pain (Radiated to the left arm) - *Neurologic Denies headache(s) Exam Vital signs and Labs for Last 24 Hours: Temp Pulse Resp BP Pulse Ox 98.2 F 59 L 16 148/79 H 98 07/24/18 07:32 07/24/18 07:32 07/24/18 07:32 07/24/18 07:32 07/24/18 08:00 Laboratory Results - last 24 hr 07/23/18 15:18: WBC 8.6, RBC 5.16, Hgb 15.2, Hct 46.1, MCV 89.2, MCH 29.5, MCHC 33.0, RDW 13.8, Plt Count 243, MPV 7.5, Neut % (Auto) 60.5, Lymph % (Auto) 29.5, [place] % (Auto) 7.0, Eos % (Auto) 2.0, Baso % (Auto) 0.9, Neut # (Auto) 5.2, Lymph # (Auto) 2.5, [place] # (Auto) 0.6, Eos # (Auto) 0.2, Baso # (Auto) 0.1 07/23/18 15:18: Sodium 140, Potassium 3.9, Chloride 103, Carbon Dioxide 27, An ion Gap 13.9, BUN 9, Creatinine 1.21, Estimated Creat Clear 84, Estimated GFR 63, Est GFR ( Amer) 76, Glucose 98, Calcium 9.5, Total Bilirubin 0.5, AST 18, ALT 21, Alkaline Phosphatase 64, Troponin I < 0.02, Total Protein 7.7, Albumin 4.1, Globulin 3.6 H, Albumin/Globulin Ratio 1.1 07/23/18 17:09: Urine Color Yellow, Urine Appearance Clear, Urine pH 7.5, Ur Specific [place] 1.015, Urine Protein Negative, Urine Glucose (UA) Negative, Urine Ketones Negative, Urine Blood 1+, Urine Nitrate Negative, Urine Bilirubin Negative, Urine Urobilinogen 0.2, Ur Leukocyte Esterase 2+ A, Urine RBC Occasional, Urine WBC 10-20, Ur Squamous Epith Cells Occasional, Urine Bacteria Trace 07/23/18 19:09: Troponin I < 0.02 07/23/18 22:10: Troponin I < 0.02 I & O for Last 24 hours: Intake & Output 07/21/18 07/22/18 07/23/18 07/24/18 23:59 23:59 23:59 23:59 Intake Total 240 / 240 120 / 120 Balance 240 / 240 120 / 120 Weight 176 lb 4 oz 176 lb 4 oz Microbiology Reports for the Last 24 Hours: Microbiology 07/23/18 17:09 Urine,Clean Catch Urine Culture - Preliminary Narrative: His telemetry strip shows sinus rhythm with a rate of 65. - *Routine HEENT Exam Head: Present: normocephalic, atraumatic Eye: Present: EOMI, PERRL ENT: Present: mucous membranes moist - *Routine Neck Exam Present: supple, full ROM, normal carotid upstroke. Absent: JVD, carotid bruit, lymphadenopathy - *Routine Respiratory Exam Present: CTA bilaterally - *Routine Cardiovascular Exam Present: RRR, Normal S1, Normal S2. Absent: murmur, gallop - *Routine Abdominal Exam Present: soft, normoactive bowel sounds. Absent: tenderness - *Routine Extremities Exam Present: full ROM, pulses intact, normal capillary refill. Absent: cyanosis, clubbing, edema - *Routine Skin Exam Present: intact, warm. Absent: erythema, rash - *Routine Neurological Exam Present: alert, oriented X3, CN II-XII intact. Absent: sensory deficit, motor deficit - Routine Psychiatric Exam Present: normal affect, normal thought process - Detailed Eye Exam Eyelids: Left normal inspection Assessment and Plan (1) Angina, class IV Current visit: Yes Status: Acute Category: Medical Code(s): I20.9 - Angina pectoris, unspecified (2) Cerebrovascular accident (CVA) Current visit: Yes Status: Acute Category: Medical Code(s): I63.9 - Cerebral infarction, unspecified (3) Hypertension Current visit: No Status: Acute Qualifiers: Hypertension type: essential hypertension Qualified Code(s): I10 - Essen tial (primary) hypertension Category: Medical Code(s): I10 - Essential (primary) hypertension (4) Degenerative disc disease, cervical Current visit: No Status: Chronic Category: Medical Code(s): M50.30 - Other cervical disc degeneration, unspecified cervical region (5) Degenerative disc disease, lumbar Current visit: No Status: Chronic Category: Medical Code(s): M51.36 - Other intervertebral disc degeneration, lumbar region (6) UTI (urinary tract infection) Current visit: Yes Status: Acute Qualifiers: Urinary tract infection type: site unspecified Hematuria presence: without hematuria Qualified Code(s): N39.0 - Urinary tract infection, site not specified Category: Medical Code(s): N39.0 - Urinary tract infection, site not specified (7) Hyperlipidemia Current visit: Yes Status: Acute Category: Medical Code(s): E78.5 - Hyperlipidemia, unspecified - Assessment and plan all Dx Assessment and Plan for all problems:: Plan: 1. The patient was admitted to the hospital due to class IV angina. The patient states that he woke up with chest pain and felt as if someone was sitting on his chest. He states that this is a heavy sensation. You can see the HPI. The patient is having class IV angina. He has known hypertension, hyperlipidemia and a family history of heart disease. The patient stopped smoking in April of this year. He does have a history of a stroke as well. Given his class IV angina and clinical risk factors for coronary artery disease, we will plan to proceed with left cardiac catheterization today with right radial access to evaluate for coronary artery disease. 2. The patient has been educated on the risks and benefits of proceeding with left cardiac catheterization. The patient verbalized understanding is agreeable in proceeding with the procedure. 3. His blood pressure is acceptable 4. His LDL goal is less than 100. 5. The patient does have a history of a stroke. He should be on aspirin daily 6. We will get an echocardiogram to evaluate his LV function. 7. The patient will remain n.p.o. in preparation for left cardiac catheterization. 8. Premedications and IV fluids will be given prior to the left cardiac catheterization. 9. Further recommendations will be made pending the patient's response to treatment and the results of his left cardiac catheterization and echocardiogram. Thank you for the opportunity to help participate in the care of this patient.
--- NOTE | 2018-07-24 20:41 | Progress Note ---
Internal Medicine - PN: Subj *Date: 07/24/18 *Time: 08:00 Interval history: occ chest pain with neg enz -prob cath per card Exam Vital signs and Labs for Last 24 Hours: Temp Pulse Resp BP Pulse Ox 98.1 F 66 16 130/82 95 07/24/18 16:05 07/24/18 18:05 07/24/18 18:05 07/24/18 18:05 07/24/18 18:05 Laboratory Results - last 24 hr 07/23/18 22:10: Troponin I < 0.02 I & O for Last 24 hours: Intake & Output 07/22/18 07/23/18 07/24/18 07/25/18 11:59 11:59 11:59 11:59 Intake Total 360 / 360 240 / 240 Output Total 400 / 400 Balance 360 / 360 -160 / -160 Weight 176 lb 4 oz Microbiology Reports for the Last 24 Hours: Microbiology 07/23/18 17:09 Urine,Clean Catch Urine Culture - Preliminary - Constitutional no acute distress - *Routine HEENT Exam Head: Present: normocephalic Eye: Present: EOMI, PERRL ENT: Present: mucous membranes dry - *Routine Neck Exam Present: supple - *Routine Respiratory Exam Present: CTA bilaterally - *Routine Cardiovascular Exam Present: RRR, murmur - *Routine Abdominal Exam Present: soft - *Routine Extremities Exam Present: full ROM - *Routine Skin Exam Present: intact - *Routine Neurological Exam Present: alert, oriented X3, CN II-XII intact - Routine Psychiatric Exam Present: normal affect Assessment and Plan (1) Angina, class IV Current visit: Yes Status: Acute Category: Medical Code(s): I20.9 - Angina pectoris, unspecified (2) Cerebrovascular accident (CVA) Current visit: Yes Status: Acute Category: Medical Code(s): I63.9 - Cerebral infarction, unspecified (3) Hypertension Current visit: No Status: Acute Qualifiers: Hypertension type: essential hypertension Qualified Code(s): I10 - Essential (primary) hypertension Category: Medical Code(s): I10 - Essential (primary) hypertension (4) Degenerative disc disease, cervical Current visit: No Status: Chronic Category: Medical Code(s): M50.30 - Other cervical disc degeneration, unspecified cervical region (5) Degenerative disc disease, lumbar Current visit: No Status: Chronic Category: Medical Code(s): M51.36 - Other intervertebral disc degeneration, lumbar region (6) UTI (urinary tract infection) Current visit: Yes Status: Acute Qualifiers: Urinary tract infection type: site unspecified Hematuria presence: without hematuria Qualified Code(s): N39.0 - Urinary tract infection, site not specified Category: Medical Code(s): N39.0 - Urinary tract infection, site not specified (7) Hyperlipidemia Current visit: Yes Status: Acute Category: Medical Code(s): E78.5 - Hyperlipidemia, unspecified
[2018-07-25 07:57] LABS: Anion Gap 14.8 mEq/L (5-15); Calcium 9.3 mg/dL (8.5-10.1); Chol/HDL Ratio 2.3 (1-3.5); Potassium 4.8 mmoL/L (3.5-5.1)
[2018-07-25 08:03] LABS: Basophils # 0.1 K/mm3 (0-0.2); Eosinophils # 0.2 K/mm3 (0.0-0.4); Eosinophils % 2.8 % (0.1-12.0); Hematocrit 42.3 % (42.0-52.0); Hemoglobin 14.2 g/dL (14.1-18.0); Lymphocytes # 2.3 K/mm3 (0.7-4.5); Lymphocytes % 29.5 % (10-50); Mean Corpuscular HGB Conc 33.6 g/dL (31.8-35.4); Mean Corpuscular Hemoglobin 30.3 pg (27.0-31.2); Mean Corpuscular Volume 90.2 fl (80-94); Mean Platelet Volume 7.2 fl (7.4-10.4); Monocytes # 0.7 K/mm3 (0.1-1.0); Monocytes % 8.9 % (1.7-9.3); Neutrophils # 4.5 K/mm3 (1.8-7.8); Neutrophils % 57.7 % (37.0-80.0); Platelet Count 192 K/mm3 (142-424); Red Blood Count 4.69 M/mm3 (4.60-6.20); Red Cell Distribution Width 13.9 % (11.5-17.5); White Blood Count 7.9 K/mm3 (4.8-10.8)
--- NOTE | 2018-07-25 08:15 | Progress Note ---
Subjective Date: 07/25/18 Time: 08:07 Principal diagnosis: angina, CAD Interval history: 52 yo white male in bed in no acute distress. Right wrist with dressing intact. Good movement of the hand with no complaints. Patient is ready for discharge home and states he is breathing much better. Exam Vital signs and Labs for Last 24 Hours: Temp Pulse Resp BP Pulse Ox 98.3 F 68 16 124/76 97 07/25/18 07:33 07/25/18 07:33 07/25/18 07:33 07/25/18 07:33 07/25/18 07:33 Laboratory Results - last 24 hr 07/25/18 07:11: Sodium 140, Potassium 4.8 D, Chloride 105, Carbon Dioxide 25, Anion Gap 14.8, BUN 17 D, Creatinine 1.31 H, Estimated Creat Clear 75, Estimated GFR 58 L, Est GFR ( Amer) 70, Glucose 77, Calcium 9.3, Triglycerides 106, Cholesterol 131 L, LDL Cholesterol 54, VLDL Cholesterol 21, HDL Cholesterol 56, Cholesterol/HDL Ratio 2.3 I & O for Last 24 hours: Intake & Output 07/22/18 07/23/18 07/24/18 07/25/18 11:59 11:59 11:59 11:59 Intake Total 360 / 360 1164 / 1164 Output Total 900 / 900 Balance 360 / 360 264 / 264 Weight 176 lb 4 oz Microbiology Reports for the Last 24 Hours: Microbiology 07/23/18 17:09 Urine,Clean Catch Urine Culture - Preliminary - *Routine Respiratory Exam Present: CTA bilaterally. Absent: accessory muscle use, rales, rhonchi, wheezes - *Routine Cardiovascular Exam Present: RRR, murmur. Absent: gallop, rubs - *Routine Extremities Exam Absent: edema, calf tenderness - *Routine Neurological Exam Present: alert, oriented X3, moving all extremities Progress Note: A&P (1) Angina, class IV Status: Acute Current Visit: Yes (2) Cerebrovascular accident (CVA) Status: Acute Current Visit: Yes (3) Hypertension Status: Acute Current Visit: No (4) Degenerative disc disease, cervical Status: Chronic Current Visit: No (5) Degenerative disc disease, lumbar Status: Chronic Current Visit: No (6) UTI (urinary tract infection) Status: Acute Current Visit: Yes (7) Hyperlipidemia Status: Acute Current Visit: Yes Assessment and Plan for All Diagnoses:: 1. Mild to moderate coronary disease with 70-80% stenosis of inferior bifurcation of diagonal branch felt best treated with medical therapy. 2. Okay for discharge home from cardiology standpoint with follow-up in 1 week. 3. Recommendation for medications; Aspirin 81 mg daily Metoprolol XL 25 mg nightly Norvasc 10 mg daily Lisinopril 20 mg daily Lipitor 40 mg daily Nitroglycerin tablets 0.4 mg sublingual as needed chest pain
--- NOTE | 2018-07-25 09:38 | Discharge Summary ---
General - General Admission date:: 07/23/18 Discharge date: 07/25/18 HPI HPI: this wm presented to pcp office with progressive ant chest pain described as tightness - he reported pain at rest - he was sent to ed for eval-tates before bed a couple of days ago he developed heaviness or pressure in his chest with shortness of breath. It lasted a couple of hours and then he went to bed. It was still there when he went to sleep. It was much better when he got up but he does not know that it was completely gone. It occurred again last night except only with shortness of breath, no chest pressure. Again it lasted a couple of hours. Today he says he just seems to have trouble getting a deep breath. He already had a routine appointment with Dr. Thakur today to get his medications refilled and saw him about this as well. Sent to the emergency room for workup and to be admitted for cardiac evaluation. The patient has hypertension and hyperlipidemia. Prior stroke. Former smoker for 40 years, quit earlier this year. No known coronary artery disease. Father had some sort of heart problem, otherwise no family history of coronary artery disease known. The patient does not have diabetes. He has not had prior cardiac workup. Dr. Thakur states that he will call Dr. Silverman. Hospital Course Hospital Course: cath report:IMPRESSION: 1. Mild disease in the mid LAD as described above with severe stenosis in the inferior branch of the large bifurcating first diagonal artery 2. Normal ejection fraction 3. Normal to mildly elevated LVEDP PLAN: 1. I strongly favor medical management with maximization of antianginal medications. Should patient have recalcitrant angina only after maximally medically managed only then would I consider stenting the large first diagonal artery. This patient should respond well to medical management 2. Avoidance of tobacco products 3. LDL less than 55 4. Risk factor modification cardiology recommends:1. Mild to moderate coronary disease with 70-80% stenosis of inferior bifurcation of diagonal branch felt best treated with medical therapy. 2. Okay for discharge home from cardiology standpoint with follow-up in 1 week. 3. Recommendation for medications; Aspirin 81 mg daily Metoprolol XL 25 mg nightly Norvasc 10 mg daily Lisinopril 20 mg daily Lipitor 40 mg daily Nitroglycerin tablets 0.4 mg sublingual as needed chest pain Will discharge home today encourage patient to quit smoking. Follow-up in the office in [address] Silverman in 2weeks Objective Vital signs: Temp Pulse Resp BP Pulse Ox 98.3 F 70 16 124/76 95 07/25/18 07:33 07/25/18 08:00 07/25/18 07:33 07/25/18 07:33 07/25/18 08:00 no acute distress - *Routine HEENT Exam Head: Present: normocephalic Eye: Present: PERRL ENT: Present: mucous membranes moist - *Routine Neck Exam Present: full ROM - *Routine Respiratory Exam Present: CTA bilaterally - *Routine Cardiovascular Exam Present: RRR - *Routine Abdominal Exam Present: soft, normoactive bowel sounds - *Routine Extremities Exam Present: full ROM Comments: Dressing to right wrist clean dry and intact - *Routine Skin Exam Present: intact - *Routine Neurological Exam Present: alert, oriented X3 - Routine Psychiatric Exam Present: normal affect Results Labs on day of discharge: Labs from last 24 hours 07/25/18 07/25/18 07:11 07:11 WBC 7.9 RBC 4.69 Hgb 14.2 Hct 42.3 MCV 90.2 MCH 30.3 MCHC 33.6 RDW 13.9 Plt Count 192 MPV 7.2 L Neut % (Auto) 57.7 Lymph % (Auto) 29.5 [place] % (Auto) 8.9 Eos % (Auto) 2.8 Baso % (Auto) 1.0 Neut # (Auto) 4.5 Lymph # (Auto) 2.3 [place] # (Auto) 0.7 Eos # (Auto) 0.2 Baso # (Auto) 0.1 Sodium 140 Potassium 4.8 D Chloride 105 Carbon Dioxide 25 Anion Gap 14.8 BUN 17 D Creatinine 1.31 H Estimated Creat Clear 75 Estimated GFR 58 L Est GFR ( Amer) 70 Glucose 77 Calcium 9.3 Triglycerides 106 Cholesterol 131 L LDL Cholesterol 54 VLDL Cholesterol 21 HDL Cholesterol 56 Cholesterol/HDL Ratio 2.3 Preliminary micro results at discharge 07/23/18 17:09 Urine Culture - Preliminary Urine,Clean Catch - Additional Comments Rounded with Dr. Thakur all orders per Ofe DS: Diagnosis - Discharge Diagnosis (1) Angina, class IV Status: Acute (2) Cerebrovascular accident (CVA) Status: Acute (3) Hypertension Status: Acute (4) Degenerative disc disease, cervical Status: Chronic (5) Degenerative disc disease, lumbar Status: Chronic (6) UTI (urinary tract infection) Status: Acute (7) Hyperlipidemia Status: Acute Discharge Plan - Patient Discharge Instructions ACTIVITY: Continue current activity DIET: continue same diet Patient Instructions: DI for Urinary Tract Infection (UTI), DI for Chest Pain - Follow up Plan Follow up with: Smooth Thakur MD [Primary Care Provider] - 07/31/18 Zac Silverman MD [Staff Physician] - 2 weeks Disposition: Home, Self-Longterm Medications: Home Medications Medication Instructions Recorded Confirmed Type aspirin 81 mg tablet,delayed 81 mg PO DAILY tab 08/22/17 07/23/18 History release amlodipine 10 mg tablet 10 mg PO DAILY #90 tab 04/05/18 07/23/18 Rx atorvastatin 40 mg tablet 40 mg PO DAILY #90 tab 04/05/18 07/23/18 Rx lisinopril 20 mg tablet 20 mg PO BID #180 tab 04/05/18 07/23/18 Rx oxycodone-acetaminophen 5 mg-325 1 tab PO BID PRN #60 tab 05/08/18 07/23/18 Rx mg tablet Hydrocod/Acet 5/325 mg [[place] 1 tab PO BID PRN 30 Days #60 tab 07/25/18 Rx 5/325mg tablet] Metoprolol Succinate [Toprol XL 25 mg PO DAILY 30 Days #30 07/25/18 Rx 25mg tablet] tab.er.24h Nitroglycerin 0.4 mg SL NEEDED PRN 30 Days 07/25/18 Rx #30 tab.subl Prescriptions/Medication Reconciliation: New Amlodipine Besylate [Norvasc 10mg tablet] 10 mg PO DAILY tablet Famotidine [Pepcid 20mg Tablet] 20 mg PO BID tablet Nitroglycerin 0.4 mg SL NEEDED PRN 30 Days #30 tab.subl PRN Reason: Chest Pain Hydrocod/Acet 5/325 mg [[place] 5/325mg tablet] 1 tab PO BID PRN 30 Days #60 tab PRN Reason: Breakthru Moderate Pain Acetaminophen [Acetaminophen 325mg tab] 650 mg PO Q6HP PRN tablet PRN Reason: Mild Pain Metoprolol Succinate [Toprol XL 25mg tablet] 25 mg PO DAILY 30 Days #30 tab.er.24h Continue aspirin 81 mg tablet,delayed release 81 mg PO DAILY tab atorvastatin 40 mg tablet 40 mg PO DAILY #90 tab lisinopril 20 mg tablet 20 mg PO BID #180 tab Discontinued amlodipine 10 mg tablet 10 mg PO DAILY #90 tab oxycodone-acetaminophen 5 mg-325 mg tablet 1 tab PO BID PRN #60 tab PRN Reason: pain
--- NOTE | 2018-07-25 18:15 | Cardiology Report ---
PROCEDURE: 2-D M-mode and color Doppler study INDICATIONS FOR THE TEST: Chest pain+ COPD Heart Murmur Tobacco Smoking Palpitations Fatigue Syncope Edema Hypertension+Diabetes Mellitus Rheumatic Fever SOB+OLGUIN Obesity Hyperlipidemia+ Family History HD Additional History CVA, TIA PATIENT INFORMATION HEIGHT: 70 WEIGHT: 176 GENDER: Male B/P: 143/83 2-D/M-MODE INTERPRETATION: 2-D MEASUREMENTS OBSERVED VALUES IN CMS Right Ventricular Dimension (RVDd) 2.5 Interventricular Septum (Thickness)(IVsd) 1.2 Left Ventricular Internal Dimensions(LVIDd) 5.6 Left Ventricular Posterior Wall (Thickness)(LVPWd) 0.9 Aortic Root 3.3 Aortic Cusp Separation 2.2 Left Atrial Dimensions (LAD) 3.8 2D 1. Left atrium is mildly enlarged, left ventricle is normal size, mild concentric left ventricular hypertrophy, visually estimated ejection fraction of 55% with no regional wall motion abnormality. 2. The right atrium and right ventricle are normal size and contractility. 3. The aortic valve is thickened and calcified leaflet continue to display good mobility. 4. The mitral and tricuspid valve are grossly normal. 5. The pulmonic valve is poorly visualized. 6. No significant pericardial effusion noted. DOPPLER INTERROGATION: Doppler interrogation of the aortic, mitral and tricuspid valvular presence of mild mitral and tricuspid regurgitation, tricuspid regurgitation jet velocity is inadequate for calculation of the right ventricular systolic pressure, diastolic parameters are within normal range. CONCLUSION: 1. Mildly enlarged left atrium, normal left ventricular size, mild concentric left ventricular hypertrophy, visually estimated ejection fraction 55% with no regional wall motion abnormality, diastolic parameters are within normal range. 2. Thickened and calcified aortic valve consistent with aortic sclerosis, there is no aortic stenosis aortic insufficiency. 3. Mild mitral and tricuspid regurgitation 4. No significant pericardial effusion noted.
== END 2018-07-25 12:25 | disposition home or self-care (01) ==
LOC: 2ND 14:50 → ER 14:50 → 2ND 17:51
PROVIDERS: ADMIT Emergency Medicine; ATTEND Emergency Medicine
DX: M51.36 Other intervertebral disc degeneration, lumbar region; Z79.899 Other long term (current) drug therapy; I25.118 Atherosclerotic heart disease of native coronary artery with other forms of angina pectoris; I10 Essential (primary) hypertension; Z79.82 Long term (current) use of aspirin; Z87.891 Personal history of nicotine dependence; Z86.73 Personal history of transient ischemic attack (TIA), and cerebral infarction without residual deficits; N39.0 Urinary tract infection, site not specified; Z79.891 Long term (current) use of opiate analgesic; E78.5 Hyperlipidemia, unspecified
CPT/HCPCS: 36415; 71020; 71046; 80048; 80053; 80061; 81001; 84484; 85025; 87086; 87088; 87186; 93005; 93306; 93458; 96374; 99152; 99284; C1725; C1769; G0378; J1644; J2405; Q9967

== ENCOUNTER → 2018-07-23 17:45 | Outpatient (CLI) | payer MEDICAID, SELFPAY ==
[2018-07-23 19:27] LABS: Amphetamine/Metha Screen,Urine Negative ng/mL (<1000); Barbiturates Screen,Urine Negative ng/mL (<200); Benzodiazepines Screen,Urine Negative ng/mL (<200); Cannabinoid Screen,Urine Positive ng/mL (<50); Cocaine Screen,Urine Negative ng/mL (<300); Methadone Screen,Urine Negative ng/mL (<300); Opiate Screen,Urine Negative ng/mL (<300); Phencyclidine Screen,Urine Negative ng/mL (<25)
[2018-07-27 23:06] LABS: Oxycodone (GC/MS) 446 ng/mL (Cutoff=100)
[2018-07-28 18:24] LABS: Opiates Negative (Cutoff=100); Oxymorphone (GC/MS) 1422 ng/mL (Cutoff=100)
== END ==
PROVIDERS: Visit Provider Emergency Medicine
DX: Z79.899 Other long term (current) drug therapy (principal)
CPT/HCPCS: 80305; 80361; 80365; G0480

== ENCOUNTER → 2018-07-29 09:55 | Outpatient (POV) | payer MEDICAID, SELFPAY ==
[2018-07-29 10:13] VITALS: BP 165/99; PULSE 63; RESP 18; O2SAT 98; BMI 26.1
--- NOTE | 2018-07-29 10:35 | P.CONS_ITS ---
[facility] Pain Management SOAP Note Subjective:: Patient is a pleasant 52-year-old white male who presents today for follow-up after his lumbar epidural steroid injection. He is doing much better. He rates his pain a 7 out of 10 today. However he states after his injection he was up to 80% better. Patient would like to repeat this. ROS General: no recent weight change, no fever, no sleep disturbances Respiratory: no cough, no shortness of air, no recurring pulmonary infections Cardiovascular/Peripheral Vascular: No chest pain, No palpitations, no edema, no shortness of breath. Gastrointestinal: no incontinence, normal bowel movements reported Genitourinary: no incontinence Musculoskeletal: Back pain, leg pain Psychiatric: normal mood/ affect Neurological: [denies weakness in extremities], [denies balance issues] Objective:: Physical Exam General: Alert and oriented x3, no acute distress, pleasant and cooperative, [on room air] Lungs: Resps E/U, Symmetrical chest expansion, Eyes: PERRL Musculoskeletal: Flexion and extension of lumbar spine somewhat guarded secondary to pain, deep tendon reflexes normal, strength in upper and lower extremities [5/5], [abnormal gait noted] Neurological: speech clear, dispatch machine runner equal, no gross sensory deficits Assessment:: Degenerative disc disease lumbar spine lumbar radiculopathy Plan:: We will schedule repeat L4-L5 lumbar epidural steroid injection given the efficacy of the last one. I will follow-up with the patient in reassess his symptoms after his injection. He is currently not on any anticoagulation therapy. Dr. Rodriguez has reviewed this note and agrees with this plan of care. This note was dictated using voice recognition software and may contain errors or omissions
== END ==
PROVIDERS: PCP Emergency Medicine; Visit Provider Clinical Nurse Specialist Family Health
DX: M51.16 Intervertebral disc disorders with radiculopathy, lumbar region (principal)
CPT/HCPCS: 99212

== ENCOUNTER → 2018-08-13 14:02 | Outpatient (CLI) | payer MEDICAID, SELFPAY ==
[2018-08-13 15:10] VITALS: PULSE 69; PULSE 72
== END ==
PROVIDERS: PCP Emergency Medicine; Visit Provider Nurse Practitioner Family
DX: R06.02 Shortness of breath (principal)
CPT/HCPCS: 94060; 94640; 94727; 94729

== ENCOUNTER → 2018-08-29 16:49 | Outpatient (CLI) | payer MEDICAID, SELFPAY ==
[2018-08-29 18:48] LABS: Amphetamine/Metha Screen,Urine Negative ng/mL (<1000); Barbiturates Screen,Urine Negative ng/mL (<200); Benzodiazepines Screen,Urine Negative ng/mL (<200); Cannabinoid Screen,Urine Positive ng/mL (<50); Cocaine Screen,Urine Negative ng/mL (<300); Methadone Screen,Urine Negative ng/mL (<300); Opiate Screen,Urine Positive ng/mL (<300); Phencyclidine Screen,Urine Negative ng/mL (<25)
== END ==
PROVIDERS: Visit Provider Nurse Practitioner Family
DX: Z79.899 Other long term (current) drug therapy (principal)
CPT/HCPCS: 80305

== ENCOUNTER → 2018-09-04 19:43 | Outpatient (CLI) | payer MEDICAID, SELFPAY | PROVIDERS: PCP Emergency Medicine; Visit Provider Specialist | DX: G47.33 Obstructive sleep apnea (adult) (pediatric) (principal); G47.10 Hypersomnia, unspecified; R06.83 Snoring; I63.9 Cerebral infarction, unspecified | CPT/HCPCS: 95810 ==

== ENCOUNTER → 2018-09-10 08:46 | Outpatient (POV) | payer MEDICAID, SELFPAY ==
[2018-09-10 09:00] VITALS: BP 147/93; PULSE 72; RESP 18; O2SAT 98; BMI 25.2
--- NOTE | 2018-09-10 09:07 | HMH.PAINSOAP ---
[facility] Pain Management SOAP Note Subjective:: Patient is a pleasant 53-year-old white male who presents today for follow-up. Patient had a lumbar epidural steroid injection in which he got significant relief 80% up to 6 weeks. Patient states that he also is much more functional up to 6 weeks post epidural injection. He would like to repeat this. He is been going to neurology and it has been ruled out that he has an MS he is utilizing a brace on his left foot and is doing much better walking. Patient is going to be seeing therapy to help with depression secondary to his pain. Patient wants to come off of his medication. I believe that that would be beneficial he may be an intrathecal candidate in the future. He rates his pain a 7 out of 10. ROS General: no recent weight change, no fever, no sleep disturbances Respiratory: no cough, no shortness of air, no recurring pulmonary infections Cardiovascular/Peripheral Vascular: No chest pain, No palpitations, no edema, no shortness of breath. Gastrointestinal: no incontinence, normal bowel movements reported Genitourinary: no incontinence Musculoskeletal: Back pain, leg pain Psychiatric: normal mood/ affect Neurological: [denies weakness in extremities], [denies balance issues] Objective:: Physical Exam General: Alert and oriented x3, no acute distress, pleasant and cooperative, [on room air] Lungs: Resps E/U, Symmetrical chest expansion, Eyes: PERRL Musculoskeletal: Flexion and extension of lumbar spine somewhat guarded secondary to pain, deep tendon reflexes normal, strength in upper and lower extremities [5/5], [abnormal gait noted] positive straight leg raise test bilaterally at 30 degrees. Neurological: speech clear, cat hooker equal, no gross sensory deficits Assessment:: Degenerative disc disease lumbar spine with lumbar radiculopathy Plan:: We will schedule him a second lumbar epidural steroid injection at L4-L5. He is failed all conservative measures including physical therapy, medications. Patient is not on any anticoagulation therapy. Patient currently on anti-inflammatories. Patient may be an intrathecal pain pump candidate. I will follow-up with him after his injection and reassess his symptoms at that time. Dr. Rodriguez has reviewed this note and agrees with this plan of care. This note was dictated using voice recognition software and may contain errors or omissions
--- NOTE | 2018-09-10 09:10 | P.CONS_ITS ---
[facility] Pain Management SOAP Note Subjective:: Patient is a pleasant 53-year-old white male who presents today for follow-up. Patient had a lumbar epidural steroid injection in which he got significant relief 80% up to 6 weeks. Patient states that he also is much more functional up to 6 weeks post epidural injection. He would like to repeat this. He is been going to neurology and it has been ruled out that he has an MS he is utilizing a brace on his left foot and is doing much better walking. Patient is going to be seeing therapy to help with depression secondary to his pain. Patient wants to come off of his medication. I believe that that would be beneficial he may be an intrathecal candidate in the future. He rates his pain a 7 out of 10. ROS General: no recent weight change, no fever, no sleep disturbances Respiratory: no cough, no shortness of air, no recurring pulmonary infections Cardiovascular/Peripheral Vascular: No chest pain, No palpitations, no edema, no shortness of breath. Gastrointestinal: no incontinence, normal bowel movements reported Genitourinary: no incontinence Musculoskeletal: Back pain, leg pain Psychiatric: normal mood/ affect Neurological: [denies weakness in extremities], [denies balance issues] Objective:: Physical Exam General: Alert and oriented x3, no acute distress, pleasant and cooperative, [on room air] Lungs: Resps E/U, Symmetrical chest expansion, Eyes: PERRL Musculoskeletal: Flexion and extension of lumbar spine somewhat guarded secondar y to pain, deep tendon reflexes normal, strength in upper and lower extremities [5/5], [abnormal gait noted] positive straight leg raise test bilaterally at 30 degrees. Neurological: speech clear, rebar bender equal, no gross sensory deficits Assessment:: Degenerative disc disease lumbar spine with lumbar radiculopathy Plan:: We will schedule him a second lumbar epidural steroid injection at L4-L5. He is failed all conservative measures including physical therapy, medications. Patient is not on any anticoagulation therapy. Patient currently on anti- inflammatories. Patient may be an intrathecal pain pump candidate. I will follow-up with him after his injection and reassess his symptoms at that time. Dr. Rodriguez has reviewed this note and agrees with this plan of care. This note was dictated using voice recognition software and may contain errors or omissions
== END ==
PROVIDERS: PCP Emergency Medicine; Visit Provider Clinical Nurse Specialist Family Health
DX: M51.16 Intervertebral disc disorders with radiculopathy, lumbar region (principal)
CPT/HCPCS: 99212

== ENCOUNTER 2018-09-20 10:34 | Day surgery (SDC) | payer MEDICAID, SELFPAY ==
[2018-09-20 11:02] VITALS: BP 157/81; PULSE 72; RESP 18; O2SAT 97; BMI 25.2
[2018-09-20 11:36] VITALS: BP 146/86; PULSE 78; RESP 18; O2SAT 98
[2018-09-20 11:38] VITALS: BP 135/85; PULSE 79; RESP 18; O2SAT 98
--- NOTE | 2018-09-20 11:40 | HMH.PMPROC ---
- Procedure Date: 09/20/18 Time: 11:40 Anesthesiologist:: Tyson Rodriguez MD Complications:: None Pre-procedure Diagnosis:: Degenerative disc disease of lumbar spine with lumbar radiculopathy symptoms Post-procedure Diagnosis:: Same Indications for Procedure:: This patient is a pleasant 52-year-old white male who we are treating for low back pain with lumbar radicular symptoms. He was 80% better after his last lumbar epidural steroid injection. Pain is starting to return. He also has some residual pain. We will plan on doing a repeat lumbar epidural steroid injection today to help him with these symptoms. Procedure Details:: Lumbar epidural steroid injection under fluoroscopy Informed consent was obtained and the risk and benefits of the procedure was explained to the patient. The patient was taken to the procedure room. The patient was placed prone on the procedure table. The patient was prepped and draped in sterile fashion. C-arm fluoroscopy was used to view the lumbar spine. Skin and subcutaneous tissues were anesthetized using lidocaine. I placed an 18-gauge epidural needle and advanced into the L4-L5 interspace using fluoroscopic guidance and [id number] to air. After confirmation of needle placement in the epidural space with dye I injected 2 mL of lidocaine 1.5% with Depo-Medrol 80 mg. Patient tolerated the procedure well with no complications. Plan and Disposition:: We will follow-up with him in 2 weeks. Will reevaluate symptoms at that time.
[2018-09-20 11:55] VITALS: BP 135/75; PULSE 65; RESP 18
== END 2018-09-20 11:55 | disposition home or self-care (01) ==
LOC: SC.PAINP 10:36
PROVIDERS: PCP Emergency Medicine; Visit Provider Anesthesiology
DX: M51.16 Intervertebral disc disorders with radiculopathy, lumbar region (principal)
CPT/HCPCS: 62323; J1040; Q9966

== ENCOUNTER → 2018-10-21 11:32 | Outpatient (POV) | payer MEDICAID, SELFPAY ==
[2018-10-21 12:13] VITALS: BP 162/82; PULSE 109; RESP 18; O2SAT 98; BMI 25.1
--- NOTE | 2018-10-21 12:40 | HMH.PAINSOAP ---
[facility] Pain Management SOAP Note Subjective:: Patient is a pleasant 52-year-old white male who presents today for follow-up after a lumbar epidural at L4 and L5. The patient reports that he had 90% relief for up to 2 2 weeks. And the pain has progressively gotten worse. He also reports pain to his cervical neck area along with pain to his bilateral lower extremities. Patient reports that he did discuss possibility of a spinal cord stimulator in the past and is interested in this today. ROS General: no recent weight change, no fever, no sleep disturbances Respiratory: no cough, no shortness of air, no recurring pulmonary infections Cardiovascular/Peripheral Vascular: No chest pain, No palpitations, no edema, no shortness of breath. Gastrointestinal: no incontinence, normal bowel movements reported Genitourinary: no incontinence Musculoskeletal: Back pain, neck pain, bilateral leg pain Psychiatric: normal mood/ affect, [denies depression], [denies anxiety] Neurological: [denies weakness in extremities], [denies balance issues] Objective:: Physical Exam General: Alert and oriented x3, no acute distress, pleasant and cooperative, [on room air] Lungs: Resps E/U, Symmetrical chest expansion, Eyes: PERRL Musculoskeletal: Flexion and extension of lumbar and cervical spine somewhat guarded secondary to pain, range of motion to bilateral lower extremities somewhat guarded secondary to pain, deep tendon reflexes normal, strength in upper extremities [5/5], [abnormal gait noted] Neurological: speech clear, rotary drill operator helper equal, no gross sensory deficits Assessment:: Degenerative disc disease lumbar spine with lumbar radiculopathy Plan:: The patient is very interested in an spinal cord stimulator. We will schedule the patient for a psychological evaluation. We will see the patient back after his evaluation. He will continue a home stretching program and NSAIDs. He is been instructed to call the office if he has any concerns prior to his next appointment. Dr. Rodriguez has reviewed this note and agrees with this plan of care. This note was dictated using voice recognition software and may contain errors or omissions
--- NOTE | 2018-10-21 12:43 | P.CONS_ITS ---
[facility] Pain Management SOAP Note Subjective:: Patient is a pleasant 52-year-old white male who presents today for follow-up after a lumbar epidural at L4 and L5. The patient reports that he had 90% relief for up to 2 2 weeks. And the pain has progressively gotten worse. He also reports pain to his cervical neck area along with pain to his bilateral lower extremities. Patient reports that he did discuss possibility of a spinal cord stimulator in the past and is interested in this today. ROS General: no recent weight change, no fever, no sleep disturbances Respiratory: no cough, no shortness of air, no recurring pulmonary infections Cardiovascular/Peripheral Vascular: No chest pain, No palpitations, no edema, no shortness of breath. Gastrointestinal: no incontinence, normal bowel movements reported Genitourinary: no incontinence Musculoskeletal: Back pain, neck pain, bilateral leg pain Psychiatric: normal mood/ affect, [denies depression], [denies anxiety] Neurological: [denies weakness in extremities], [denies balance issues] Objective:: Physical Exam General: Alert and oriented x3, no acute distress, pleasant and cooperative, [on room air] Lungs: Resps E/U, Symmetrical chest expansion, Eyes: PERRL Musculoskeletal: Flexion and extension of lumbar and cervical spine somewhat guarded secondary to pain, range of motion to bilateral lower extremities somewhat guarded secondary to pain, deep tendon reflexes normal, strength in upper extremities [5/5], [abnormal gait noted] Neurological: speech clear, press tender short goods equal, no gross sensory deficits Assessment:: Degenerative disc disease lumbar spine with lumbar radiculopathy Plan:: The patient is very interested in an spinal cord stimulator. We will schedule the patient for a psychological evaluation. We will see the patient back after his evaluation. He will continue a home stretching program and NSAIDs. He is been instructed to call the office if he has any concerns prior to his next appointment. Dr. Rodriguez has reviewed this note and agrees with this plan of care. This note was dictated using voice recognition software and may contain errors or omissions
== END ==
PROVIDERS: PCP Emergency Medicine; Visit Provider Clinical Nurse Specialist Family Health
DX: M51.16 Intervertebral disc disorders with radiculopathy, lumbar region (principal)
CPT/HCPCS: 99212

== ENCOUNTER → 2018-10-30 17:15 | Outpatient (CLI) | payer MEDICAID, SELFPAY ==
[2018-10-30 18:18] LABS: Amphetamine/Metha Screen,Urine Negative ng/mL (<1000); Barbiturates Screen,Urine Negative ng/mL (<200); Benzodiazepines Screen,Urine Negative ng/mL (<200); Cannabinoid Screen,Urine Positive ng/mL (<50); Cocaine Screen,Urine Negative ng/mL (<300); Methadone Screen,Urine Negative ng/mL (<300); Opiate Screen,Urine Negative ng/mL (<300); Phencyclidine Screen,Urine Negative ng/mL (<25)
[2018-11-08 17:12] LABS: Opiates Negative (Cutoff=100)
== END ==
PROVIDERS: Visit Provider Emergency Medicine
DX: G89.29 Other chronic pain (principal); Z79.891 Long term (current) use of opiate analgesic
CPT/HCPCS: 80305; 80361; 80365; G0480

== ENCOUNTER → 2018-12-02 13:57 | Outpatient (POV) | payer MEDICAID, SELFPAY ==
[2018-12-02 14:27] VITALS: BP 116/77; PULSE 66; RESP 18; O2SAT 98; BMI 26.3
--- NOTE | 2018-12-02 14:50 | HMH.PAINSOAP ---
[facility] Pain Management SOAP Note Subjective:: Patient is a pleasant 53-year-old white male who presents today for follow-up. Patient was planning to do a psychological evaluation however due to some personal issues he was unable to complete it. Patient potentially may have colon cancer. He is scheduled for colonoscopy on Sunday. Patient has done well with epidurals in the past and would like to repeat this he got 90% relief for almost a month. Patient would like to repeat this. Most of his pain is in his low back he rates an 8 out of 10 today. ROS General: no recent weight change, no fever, no sleep disturbances Respiratory: no cough, no shortness of air, no recurring pulmonary infections Cardiovascular/Peripheral Vascular: No chest pain, No palpitations, no edema, no shortness of breath. Gastrointestinal: no incontinence, normal bowel movements reported Genitourinary: no incontinence Musculoskeletal: Neck pain, neck pain, bilateral leg pain Psychiatric: normal mood/ affect Neurological: [denies weakness in extremities], [denies balance issues] Objective:: Physical Exam General: Alert and oriented x3, no acute distress, pleasant and cooperative, [on room air] Lungs: Resps E/U, Symmetrical chest expansion, Eyes: PERRL Musculoskeletal: Flexion and extension of lumbar spine somewhat guarded secondary to pain, deep tendon reflexes normal, strength in upper and lower extremities [5/5], [abnormal gait noted] Neurological: speech clear, mushroom grower equal, no gross sensory deficits Assessment:: Degenerative disc disease lumbar spine with lumbar radiculopathy Plan:: We will schedule an L4-L5 lumbar epidural steroid injection given the efficacy of the last time I believe it would be beneficial he is continuing a home stretching program and is not on any anticoagulation therapy. Dr. Rodriguez has reviewed this note and agrees with this plan of care. This note was dictated using voice recognition software and may contain errors or omissions Pain Management Hx Components *Have you ever received a pneumonia vaccine?: Yes *Have you received a flu vaccine this season?: Yes - *Social History *Occupational Status:: other *Travel in the last 8 weeks: None
== END ==
PROVIDERS: PCP Emergency Medicine; Visit Provider Clinical Nurse Specialist Family Health
DX: M51.16 Intervertebral disc disorders with radiculopathy, lumbar region (principal)
CPT/HCPCS: 99212

== ENCOUNTER → 2018-12-27 13:41 | Outpatient (CLI) | payer MEDICAID, SELFPAY ==
[2018-12-27 15:10] LABS: Amphetamine/Metha Screen,Urine Negative ng/mL (<1000); Barbiturates Screen,Urine Negative ng/mL (<200); Benzodiazepines Screen,Urine Negative ng/mL (<200); Cannabinoid Screen,Urine Positive ng/mL (<50); Cocaine Screen,Urine Negative ng/mL (<300); Methadone Screen,Urine Negative ng/mL (<300); Opiate Screen,Urine Positive ng/mL (<300); Phencyclidine Screen,Urine Negative ng/mL (<25)
== END ==
PROVIDERS: Visit Provider Emergency Medicine
DX: M54.2 Cervicalgia (principal)
CPT/HCPCS: 80305

== ENCOUNTER → 2019-01-06 13:19 | Outpatient (POV) | payer MEDICAID, SELFPAY ==
[2019-01-06 13:51] VITALS: BP 154/98; PULSE 74; RESP 18; O2SAT 98; BMI 24.0
--- NOTE | 2019-01-06 14:24 | HMH.PAINSOAP ---
[facility] Pain Management SOAP Note Subjective:: Patient is a pleasant 53-year-old white male who presents today for follow-up after lumbar epidural steroid injection. Patient is awaiting a colonoscopy to determine if he potentially is colon cancer. Patient's mother just recently since then he has had exacerbated pain. Rating it a 9 out of 10 today. However after his injection he stated he had 3 weeks of 90% relief. Patient would like to repeat one more time he is injection. Patient may be an intrathecal pain pump candidate if his colonoscopy comes back positive for cancer. ROS General: no recent weight change, no fever, no sleep disturbances Respiratory: no cough, no shortness of air, no recurring pulmonary infections Cardiovascular/Peripheral Vascular: No chest pain, No palpitations, no edema, no shortness of breath. Gastrointestinal: no incontinence, normal bowel movements reported Genitourinary: no incontinence Musculoskeletal: Back pain, leg pain Psychiatric: normal mood/ affect Neurological: [denies weakness in extremities], [denies balance issues] Objective:: Physical Exam General: Alert and oriented x3, no acute distress, pleasant and cooperative, [on room air] Lungs: Resps E/U, Symmetrical chest expansion, Eyes: PERRL Musculoskeletal: Flexion and extension of lumbar spine somewhat guarded secondary to pain, deep tendon reflexes normal, strength in upper and lower extremities [5/5], [abnormal gait noted] Neurological: speech clear, construction ironworker helper equal, no gross sensory deficits Assessment:: Degenerative disc disease lumbar spine with lumbar radiculopathy Plan:: We will schedule an L4-L5 lumbar epidural steroid injection for the patient. Patient is going to be having a diagnostic colonoscopy to determine if he has active cancer if he does he potentially may be an intrathecal pain pump patient. I will follow-up with the patient after his injection reassess his symptoms at that time he is not on any anticoagulation therapy. Dr. Rodriguez has reviewed this note and agrees with this plan of care. This note was dictated using voice recognition software and may contain errors or omissions Pain Management Hx Components *Have you ever received a pneumonia vaccine?: Yes *Have you received a flu vaccine this season?: Yes - *Social History *Occupational Status:: other *Travel in the last 8 weeks: None
== END ==
PROVIDERS: PCP Emergency Medicine; Visit Provider Clinical Nurse Specialist Family Health
DX: M51.16 Intervertebral disc disorders with radiculopathy, lumbar region (principal)
CPT/HCPCS: 99212

== ENCOUNTER → 2019-02-10 13:53 | Outpatient (POV) | payer MEDICAID, SELFPAY ==
[2019-02-10 14:59] VITALS: BP 179/89; PULSE 70; RESP 18; O2SAT 99; BMI 24.0
--- NOTE | 2019-02-11 08:38 | HMH.PAINSOAP ---
[facility] Pain Management SOAP Note Subjective:: Patient is a pleasant 53-year-old white male who presents today for follow-up after denial for lumbar epidural steroid injection. Patient was being checked out for cancer he has a clean bill of health at this time. Patient and I have discussed intrathecal therapy in the past I do believe it would be extremely beneficial for him. Patient I had a long discussion he states he is not taking his Percocet he is smoking marijuana for pain control. I discussed with him that we cannot do marijuana and the pain pump and he would have to come off a week prior to his thecal pain pump trial and implant and would not be able to smoke post that. We did discuss utilizing CBD oil and he was interested in this. He rates his pain a 7 out of 10. ROS General: no recent weight change, no fever, no sleep disturbances Respiratory: no cough, no shortness of air, no recurring pulmonary infections Cardiovascular/Peripheral Vascular: No chest pain, No palpitations, no edema, no shortness of breath. Gastrointestinal: no new onset incontinence, normal bowel movements reported Genitourinary: no new onset incontinence Musculoskeletal: Back pain, leg pain Psychiatric: normal mood/ affect, Neurological: [denies new onset weakness in extremities], [denies new onset balance issues] Objective:: Physical Exam General: Alert and oriented x3, no acute distress, pleasant and cooperative, [on room air] Lungs: Resps E/U, Symmetrical chest expansion, Eyes: PERRL Musculoskeletal: Flexion and extension of lumbar spine somewhat guarded secondary to pain, deep tendon reflexes normal, strength in upper and lower extremities [5/5], [abnormal gait noted] Neurological: speech clear, automation and controls instructor equal, no gross sensory deficits Assessment:: Degenerative disc disease lumbar spine with lumbar radiculopathy Plan:: At this time patient is on marijuana along with oral narcotics. We discussed the dangers of this. Patient and I had a long discussion about intrathecal therapy I do believe it would be beneficial for him. We will send her for psychological evaluation to determine if this is appropriate. I will follow-up with him after the psychological evaluation and will make a game plan in regards to weaning schedule. Dr. Rodriguez has reviewed this note and agrees with this plan of care. This note was dictated using voice recognition software and may contain errors or omissions [facility] History I have reviewed the patient's past medical history: Yes Medical History: Reports:: Cerebrovascular Accident, Hyperlipidemia, Hypertension, Kidney Stones, Transient Ischemic Attacks (TIA) Denies:: Cancer, Diabetes Mellitus Type 1, Diabetes Mellitus Type 2, Internal Pacemaker, Lung Disease, MRSA, Seizures *Have you ever received a pneumonia vaccine?: Yes *Have you received a flu vaccine this season?: No Other Medical History: Reports: Other. Denies: Blood Transfusion Reaction Other Surgeries: Yes: No Previous Surgery, Cardiac Catheterization. No: Pacemaker Amputation: No Fractures: Yes (back, neck) - *Social History Smoking Status: Former smoker Tobacco Type: cigarettes # Packs/Day (cigarettes): 1 #Yrs smoked (if former smoker): 40 Alcohol Intake: never Alcohol Intake Frequency:: holidays/special occasions only Substance Use Type: marijuana *Occupational Status:: other Housing: house Household Members: none *Travel in the last 8 weeks: None Family Hx:: Cancer, Coronary Artery Disease
== END ==
PROVIDERS: PCP Emergency Medicine; Visit Provider Clinical Nurse Specialist Family Health
DX: M51.16 Intervertebral disc disorders with radiculopathy, lumbar region (principal)
CPT/HCPCS: 99212

== ENCOUNTER → 2019-02-25 13:38 | Outpatient (CLI) | payer MEDICAID, SELFPAY ==
[2019-02-25 14:45] LABS: Amphetamine/Metha Screen,Urine Negative ng/mL (<1000); Barbiturates Screen,Urine Negative ng/mL (<200); Benzodiazepines Screen,Urine Negative ng/mL (<200); Cannabinoid Screen,Urine Positive ng/mL (<50); Cocaine Screen,Urine Negative ng/mL (<300); Methadone Screen,Urine Negative ng/mL (<300); Opiate Screen,Urine Negative ng/mL (<300); Phencyclidine Screen,Urine Negative ng/mL (<25)
[2019-03-07 10:15] LABS: Oxycodone (GC/MS) 1806 ng/mL (Cutoff=100)
[2019-03-07 17:14] LABS: Opiates Negative (Cutoff=100); Oxymorphone (GC/MS) 1021 ng/mL (Cutoff=100)
== END ==
PROVIDERS: Visit Provider Emergency Medicine
DX: Z79.899 Other long term (current) drug therapy (principal)
CPT/HCPCS: 80305; 80361; 80365; G0480

== ENCOUNTER → 2019-03-10 13:24 | Outpatient (CLI) | payer MEDICAID, SELFPAY ==
--- NOTE | 2019-03-10 13:25 | US_ITS ---
PROCEDURE: US THYROID CLINICAL INDICATION: questionable mass Thyroid mass COMPARISON: No exams were available for comparison FINDINGS: Right lobe: 3.8 x 1.7 x 1.4 cm. Homogeneous echogenicity. No nodule apparent Left lobe: 4.2 x 1.3 x 1.6 cm. There is homogeneous echogenicity. A 7 mm cyst is present in the lower pole which appears benign. Isthmus: Unremarkable Additional findings: IMPRESSION: 7 mm benign-appearing cyst lower pole on the left otherwise negative thyroid ultrasound the Dictated by: Rayshawn Romero MD 03/10/2019 14:12 Electronically signed by Rayshawn Romero MD in [facility] 03/10/2019 14:12
== END ==
PROVIDERS: PCP Emergency Medicine; Visit Provider Emergency Medicine
DX: R22.9 Localized swelling, mass and lump, unspecified (principal)
CPT/HCPCS: 76536

== ENCOUNTER → 2019-04-21 16:41 | Outpatient (CLI) | payer MEDICAID, SELFPAY ==
[2019-04-21 17:46] LABS: Amphetamine/Metha Screen,Urine Negative ng/mL (<1000); Barbiturates Screen,Urine Negative ng/mL (<200); Benzodiazepines Screen,Urine Negative ng/mL (<200); Cannabinoid Screen,Urine Positive ng/mL (<50); Cocaine Screen,Urine Negative ng/mL (<300); Methadone Screen,Urine Negative ng/mL (<300); Opiate Screen,Urine Positive ng/mL (<300); Phencyclidine Screen,Urine Negative ng/mL (<25)
== END ==
PROVIDERS: Visit Provider Emergency Medicine
DX: Z79.899 Other long term (current) drug therapy (principal)
CPT/HCPCS: 80305

== ENCOUNTER 2019-05-23 09:00 | Outpatient (RCR) | payer MEDICAID, SELFPAY ==
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
== END 2019-05-23 09:05 | disposition home or self-care (01) ==
LOC: PT 09:00
PROVIDERS: PCP Emergency Medicine; Visit Provider Emergency Medicine
DX: M51.36 Other intervertebral disc degeneration, lumbar region (principal); M50.30 Other cervical disc degeneration, unspecified cervical region
CPT/HCPCS: 97010; 97014; 97110; 97163; G0283

== ENCOUNTER → 2019-05-27 08:59 | Outpatient (POV) | payer MEDICAID, SELFPAY ==
[2019-05-27 09:17] VITALS: BP 201/124; PULSE 78; RESP 18; O2SAT 98; BMI 24.0
--- NOTE | 2019-05-27 09:27 | PC.NURSE ---
BLOOD PRESSURE READINGS FOLLOWS: 205/124, 232/124 WITH DATASCOPE 210/120 MANUALLY ALL READINGS REPORTED TO NANETTE HERNÁNDEZ. PT STATES HE TOOK HIS BLOOD PRESSURE MEDS THIS AM AND WOKE UP WITH A SLIGHT HEADACHE.
--- NOTE | 2019-05-27 09:42 | HMH.PAINSOAP ---
[facility] Pain Management SOAP Note Subjective:: Patient is a very pleasant 53-year-old white male who presents today for follow-up. Patient is currently in the process working towards an intrathecal pain pump. He has a psychological evaluation that has determined he is a good candidate for the therapy. Patient is on Percocet he understands that he has to be off of it prior to his intrathecal pain pump trial. Patient's blood pressure is elevated today. We will be sending him to the ER for a assessment. He rates his pain 8 out of 10. Mostly in his low back and legs. Patient has failed injections and medications. He does have an appropriate psychological evaluation. Most of his pain is in his low back. ROS General: no recent weight change, no fever, no sleep disturbances Respiratory: no cough, no shortness of air, no recurring pulmonary infections Cardiovascular/Peripheral Vascular: No chest pain, No palpitations, no edema, no shortness of breath. Gastrointestinal: no new onset incontinence, normal bowel movements reported Genitourinary: no new onset incontinence Musculoskeletal: Back pain, leg pain Psychiatric: normal mood/ affect Neurological: [denies new onset weakness in extremities], [denies new onset balance issues] Objective:: Physical Exam General: Alert and oriented x3, no acute distress, pleasant and cooperative, Lungs: Resps E/U, Symmetrical chest expansion, Eyes: PERRL Musculoskeletal: Flexion and extension of lumbar spine somewhat guarded secondary to pain, deep tendon reflexes normal, strength in upper and lower extremities [5/5], [abnormal gait noted] Neurological: speech clear, test administrator equal, no gross sensory deficits Assessment:: Degenerative disc disease lumbar spine with lumbar radiculopathy Plan:: We will set the patient up for an intrathecal pain pump trial. Patient and I had a long discussion in regards to coming off of his oral narcotics he agrees. Patient has been instructed to call the office if he has any issues prior to his next appointment. He was escorted to the ER by the staff. Dr. Rodriguez has reviewed this note and agrees with this plan of care. This note was dictated using voice recognition software and may contain errors or omissions [facility] History I have reviewed the patient's past medical history: Yes Medical History: Reports:: Cerebrovascular Accident, Hyperlipidemia, Hypertension, Kidney Stones, Transient Ischemic Attacks (TIA) Denies:: Cancer, Diabetes Mellitus Type 1, Diabetes Mellitus Type 2, Internal Pacemaker, Lung Disease, MRSA, Seizures *Have you ever received a pneumonia vaccine?: Yes *Have you received a flu vaccine this season?: Yes Other Medical History: Reports: Other. Denies: Blood Transfusion Reaction Other Surgeries: Yes: No Previous Surgery, Cardiac Catheterization, Colonoscopy. No: Pacemaker Amputation: No Fractures: Yes (back, neck) - *Social History Smoking Status: Former smoker Tobacco Type: cigarettes # Packs/Day (cigarettes): 1 #Yrs smoked (if former smoker): 40 Alcohol Intake: never Alcohol Intake Frequency:: holidays/special occasions only Substance Use Type: marijuana *Occupational Status:: other Housing: house Household Members: none *Travel in the last 8 weeks: None Family Hx:: Cancer, Coronary Artery Disease
--- NOTE | 2019-05-27 10:00 | PC.NURSE ---
PT TAKEN TO ER AND REPORT GIVEN TO DILEEP AND RN AT BEDSIDE. [id number]
== END ==
PROVIDERS: PCP Emergency Medicine; Visit Provider Clinical Nurse Specialist Family Health
DX: M51.16 Intervertebral disc disorders with radiculopathy, lumbar region (principal); Z86.73 Personal history of transient ischemic attack (TIA), and cerebral infarction without residual deficits; Z87.442 Personal history of urinary calculi; E78.5 Hyperlipidemia, unspecified; I10 Essential (primary) hypertension; Z87.891 Personal history of nicotine dependence; F12.90 Cannabis use, unspecified, uncomplicated
CPT/HCPCS: 99212

== ENCOUNTER → 2019-09-25 09:00 | Outpatient (POV) | payer MEDICAID, SELFPAY ==
[2019-09-25 09:32] VITALS: RESP 18; TEMP 36.6; BMI 22.9
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
== END ==
PROVIDERS: PCP Emergency Medicine; Visit Provider Clinical Nurse Specialist Family Health
DX: M51.16 Intervertebral disc disorders with radiculopathy, lumbar region (principal); M54.2 Cervicalgia
CPT/HCPCS: 99212

== ENCOUNTER 2019-10-16 16:05 | Emergency (ER) | payer MEDICAID, SELFPAY ==
[2019-10-16 16:07] VITALS: BP 179/90; PULSE 92; RESP 18; O2SAT 99; BMI 23.6
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
[2019-10-16 16:42] VITALS: BP 138/80; PULSE 70; O2SAT 97
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
[2019-10-16 17:33] VITALS: BP 133/82; PULSE 59; O2SAT 93
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
[2019-10-16 18:42] VITALS: BP 133/82; PULSE 59; RESP 18; TEMP 36.7; O2SAT 97
== END 2019-10-16 18:44 | disposition home or self-care (01) ==
PROVIDERS: Emergency Provider Family Medicine; PCP Emergency Medicine
DX: S60.552A Superficial foreign body of left hand, initial encounter (principal); W34.00XA Accidental discharge from unspecified firearms or gun, initial encounter; I10 Essential (primary) hypertension; E78.5 Hyperlipidemia, unspecified; Z87.891 Personal history of nicotine dependence; Z87.442 Personal history of urinary calculi; Z79.899 Other long term (current) drug therapy; Z23 Encounter for immunization
CPT/HCPCS: 10120; 73120; 73130; 90471; 90714; 96374; 96375; 99283

== ENCOUNTER → 2019-10-24 08:19 | Day surgery (SDC) | payer MEDICAID, SELFPAY ==
[2019-10-24 08:36] VITALS: BP 157/84; RESP 18; TEMP 36.6; O2SAT 98; BMI 23.6
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
[2019-10-24 09:07] VITALS: BP 137/92; PULSE 99; RESP 18; O2SAT 98
[2019-10-24 09:08] VITALS: BP 140/92; PULSE 59; RESP 18; O2SAT 99
[2019-10-24 11:10] VITALS: BP 119/74; PULSE 60; RESP 20; O2SAT 100
--- NOTE | 2019-10-24 12:02 | PC.NURSE ---
0930-pt returned to bay from procedure room, accompanied by nursing staff. VS 108/76, 56, 18, 100%. rates pain a 2 on scal eo f0-10. offered pt a breakfast tray and he accepted. without any needs or concerns at this time 0945-pt eating breakfast. no needs or concerns at this time. no c/o pain VS 100/62, 64, 18, 97% 1000-pttolerated PO intake well. no c/p pain. resting in chair. VS-107/62, 57, 18, 98%. no needs or concerns at this time 1015-pt resting in chair. VS-104/66, 59, 20, 97. rates pain a 2 on scale of 0-10. no needs o concerns at this time 1030-pt resting. VS-102/59, 55, 20, 98%. denies pain at this time. no needs or concerns verbalized. 1047-Dr. Rodriguez at bedside. 1055-pt ambulating with assistance of nursing staff. gait steady. no c/o pain 1100-PT at bedside for evaluation
== END ==
PROVIDERS: PCP Emergency Medicine; Visit Provider Anesthesiology
DX: M51.16 Intervertebral disc disorders with radiculopathy, lumbar region (principal); M50.10 Cervical disc disorder with radiculopathy, unspecified cervical region; I10 Essential (primary) hypertension; E78.5 Hyperlipidemia, unspecified; J44.9 Chronic obstructive pulmonary disease, unspecified; F41.9 Anxiety disorder, unspecified; I63.9 Cerebral infarction, unspecified; Z79.82 Long term (current) use of aspirin; Z79.899 Other long term (current) drug therapy
CPT/HCPCS: 62323; 96365

== ENCOUNTER 2019-10-25 13:23 | Emergency (ER) | payer MEDICAID, SELFPAY ==
[2019-10-25 13:30] VITALS: BP 138/80; PULSE 85; RESP 18; TEMP 37; O2SAT 98
[2019-10-25 14:07] VITALS: BP 138/80; PULSE 85; RESP 18; TEMP 37; O2SAT 98; BMI 22.1
== END 2019-10-25 13:35 | disposition home or self-care (01) ==
LOC: UTC 13:29
PROVIDERS: Emergency Provider Nurse Practitioner; PCP Emergency Medicine
DX: S60.552D Superficial foreign body of left hand, subsequent encounter (principal)

== ENCOUNTER → 2019-11-11 10:50 | Outpatient (CLI) | payer MEDICAID, SELFPAY ==
[2019-11-11 13:26] LABS: Basophils # 0.1 K/mm3 (0-0.2); Basophils % 0.5 % (0.1-2.0); Eosinophils # 0.1 K/mm3 (0.0-0.4); Eosinophils % 0.7 % (0.1-12.0); Hematocrit 51.5 % (42.0-52.0); Hemoglobin 17.4 g/dL (14.1-18.0); Lymphocytes # 4.1 K/mm3 (0.7-4.5); Lymphocytes % 30.7 % (10-50); Mean Corpuscular HGB Conc 33.8 g/dL (31.8-35.4); Mean Corpuscular Hemoglobin 31.3 pg (27.0-31.2); Mean Corpuscular Volume 92.7 fl (80-94); Monocytes # 0.9 K/mm3 (0.1-1.0); Monocytes % 6.3 % (1.7-9.3); Neutrophils # 8.3 K/mm3 (1.8-7.8); Neutrophils % 61.8 % (37.0-80.0); Platelet Count 282 K/mm3 (142-424); Red Blood Count 5.55 M/mm3 (4.60-6.20); Red Cell Distribution Width 14.5 % (11.5-17.5); White Blood Count 13.4 K/mm3 (4.8-10.8)
[2019-11-11 13:43] LABS: Chloride 95 mmol/L (98-107); Potassium 3.9 mmoL/L (3.5-5.1); Sodium 138 mmol/L (136-145)
[2019-11-11 13:46] LABS: Anion Gap 15.9 mEq/L (5-15); Blood Urea Nitrogen 20 mg/dl (9-20); Calcium 10.4 mg/dl (8.4-10.2); Carbon Dioxide 31 mmol/L (22.0-30.0); Estimated Glomerular Filt Rate 49 ml/min (>60); GFR (African American) 59 ML/MIN (>60); Glucose 97 mg/dl (74-100)
[2019-11-11 14:41] LABS: Coronavirus 19 IgG Antibody Negative (Negative); Coronavirus 19 IgM Antibody Negative (Negative)
[2019-11-11 20:02] LABS: Amphetamine/Metha Screen,Urine Negative ng/ml (<1000); Barbiturates Screen,Urine Negative ng/ml (<200)
[2019-11-11 20:03] LABS: Benzodiazepines Screen,Urine Negative ng/ml (<200)
[2019-11-11 20:04] LABS: Cannabinoid Screen,Urine Positive ng/ml (<50); Cocaine Screen,Urine Negative ng/ml (<300)
[2019-11-11 20:05] LABS: Methadone Screen,Urine Negative ng/ml (<300)
[2019-11-11 20:06] LABS: Opiate Screen,Urine Negative ng/ml (<300)
[2019-11-11 20:07] LABS: Phencyclidine Screen,Urine Negative ng/ml (<25)
== END ==
PROVIDERS: Visit Provider Anesthesiology
DX: Z01.818 Encounter for other preprocedural examination (principal); Z03.818 Encounter for observation for suspected exposure to other biological agents ruled out
CPT/HCPCS: 36415; 80048; 80305; 85025; 86328

== ENCOUNTER 2019-11-12 09:10 | Day surgery (SDC) | payer MEDICAID, SELFPAY ==
[2019-11-10 11:38] VITALS: BMI 24.3
[2019-11-12 10:06] VITALS: BP 153/95; PULSE 69; RESP 18; TEMP 37; O2SAT 97
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
--- NOTE | 2019-11-12 11:06 | HMH.ANESCL ---
[facility] Anesthesia Checklist - Patient Identification Patient Identification: Arm Band, Verbal (Name & ) - Structural Data Admitted From: Home Planned Operative Procedure/s: Placement of permanent pain pump Consent for Planned Operative Procedure(s) Verified: Yes Verified Documents: Surgical Consent, History and Physical - NPO Status Verified Time NPO: 21:00 - Chart Verification Results Verified: CBC, BMP, UA (Toxicology) - Additional verifications Anesthesia Reactions: No Hx Blood Transfusions: No Blood Transfusion Reaction: No - Airway Assessment C-Spine Mobility Assessed: Yes (TMD 3, MP 2) TMJ Mobility Assessed: Yes Dentition: Edentulous - Neurological Assessment Level of Consciousness: Awake, Alert, Appropriate, Follows Commands Hx Seizures: No Numbness or tingling in extremities: No - Anesthesia Plan Anesthesia Risk discussed: Yes Anesthesia Plan: Verified ASA Class: III Anesthesia Type: MAC [facility] History I have reviewed the patient's past medical history: Yes Medical History: Reports:: Cerebrovascular Accident, Hyperlipidemia, Hypertension, Kidney Stones, Transient Ischemic Attacks (TIA) Denies:: Cancer, Diabetes Mellitus Type 1, Diabetes Mellitus Type 2, Internal Pacemaker, Lung Disease, MRSA, Seizures *Have you ever received a pneumonia vaccine?: No *Have you received a flu vaccine this season?: No Other Medical History: Reports: Other. Denies: Blood Transfusion Reaction Comment:: chronic pain Anesthesia experience/problems:: no prior complications Other Surgeries: Yes: Cardiac Catheterization, Colonoscopy. No: Pacemaker Amputation: No Fractures: Yes (back, neck) - *Social History Last grade of school completed: 9th or 10th Smoking Status: Former smoker Tobacco Type: cigarettes # Packs/Day (cigarettes): 1 #Yrs smoked (if former smoker): 40 Smoking End Date: 2017 Alcohol Intake: never Alcohol Intake Frequency:: holidays/special occasions only Substance Use Type: marijuana *Occupational Status:: disabled Housing: house Household Members: none *Travel in the last 8 weeks: None Family Hx:: Cancer, Coronary Artery Disease
--- NOTE | 2019-11-12 12:59 | HMH.OPNOTE ---
Date of procedure: 11/12/19 Pre-op Diagnosis:: Degenerative disc disease of the lumbar spine with radiculopathy Post-op Diagnosis:: Same Procedure performed:: Placement of pain pump generator Surgeon:: Wilfrido Cortez MD INDUCTION COORDINATION ENGINEER:: Ray Higuera, Mina Butler, Zeeshan Mcmanus, Fredy Lemus, Other Anesthesia: MAC Estimated blood loss (mL): 5 Operative findings:: Not applicable Operative note:: Patient was placed prone on the operating table and his back and flank regions were prepped and draped in sterile fashion. IV sedation obtained utilizing anesthesia and local anesthesia utilizing 1% Xylocaine with epinephrine. Paraspinal incision was made by Dr. Patrick which an intrathecal catheter was passed into the intrathecal space to the area desired by Dr. garcia. Catheter sutured to the underlying paraspinal fascia with fixation devices and 2-0 Prolene suture. Right flank incision was then made under which made a pocket for placement of the reservoir. Both pockets irrigated with antibiotic solution. Catheter passed from paraspinal incision to the pocket incision utilize a tunneling device. Catheter fixed the generator which was placed in the pocket. CSF was aspirated from the generator noting patency of the system. Subcutaneous incisions closed with interrupted stitches of 2-0 Vicryl after being irrigated with antibiotic solution. Skin closed with stitches of 4-0 nylon. Wound VAC dressings and a binder applied to the wound. The patient taught procedure well and was taken to the recovery room in stable condition. Upon recovery the patient be discharged home will follow-up in 1 week for removal of the wound VAC dressings in 2 weeks remove the sutures. Biotics x1 week per protocol. The patient again tolerated the procedure well Condition: stable Disposition: PACU Complications:: None
[2019-11-12 13:15] VITALS: BP 112/71; PULSE 65; RESP 18; TEMP 36.6; O2SAT 99
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
[2019-11-12 13:30] VITALS: BP 125/83; PULSE 68; RESP 18; TEMP 36.6; O2SAT 100
[2019-11-12 13:45] VITALS: BP 143/89; PULSE 66; RESP 18; TEMP 36.6; O2SAT 100
[2019-11-12 14:00] VITALS: BP 143/88; PULSE 60; RESP 18; TEMP 36.6; O2SAT 100
[2019-11-12 14:29] VITALS: BP 129/76; PULSE 59; RESP 18; TEMP 36.6; O2SAT 100
== END 2019-11-12 14:29 | disposition home or self-care (01) ==
LOC: OR 09:11
PROVIDERS: PCP Emergency Medicine; Visit Provider Anesthesiology
PROC: (CPT 62362; principal; 2019-11-12 11:15)
DX: M51.16 Intervertebral disc disorders with radiculopathy, lumbar region (principal); I63.9 Cerebral infarction, unspecified; I10 Essential (primary) hypertension; E78.5 Hyperlipidemia, unspecified; G45.9 Transient cerebral ischemic attack, unspecified; Z87.442 Personal history of urinary calculi; F41.9 Anxiety disorder, unspecified; F32.9 Major depressive disorder, single episode, unspecified; Z87.891 Personal history of nicotine dependence; F12.90 Cannabis use, unspecified, uncomplicated; Z80.9 Family history of malignant neoplasm, unspecified; Z82.49 Family history of ischemic heart disease and other diseases of the circulatory system
CPT/HCPCS: 62362; 62350; 96374; C1755; C1772; J3370

== ENCOUNTER → 2019-11-17 08:42 | Outpatient (POV) | payer MEDICAID, SELFPAY ==
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
[2019-11-17 09:21] VITALS: BP 140/88; PULSE 79; RESP 18; O2SAT 98; BMI 22.8
== END ==
PROVIDERS: PCP Emergency Medicine; Visit Provider Clinical Nurse Specialist Family Health
DX: M51.16 Intervertebral disc disorders with radiculopathy, lumbar region (principal); M50.30 Other cervical disc degeneration, unspecified cervical region; I63.9 Cerebral infarction, unspecified; G45.9 Transient cerebral ischemic attack, unspecified; I10 Essential (primary) hypertension; E78.5 Hyperlipidemia, unspecified
CPT/HCPCS: 62368; 62370

== ENCOUNTER → 2019-11-20 09:25 | Outpatient (POV) | payer MEDICAID, SELFPAY ==
[2019-11-20 09:54] VITALS: BP 132/88; PULSE 75; RESP 18; O2SAT 97; BMI 22.2
--- NOTE | 2019-11-20 10:07 | HMH.PMPROC ---
- Procedure Date: 11/20/19 Time: 10:07 Anesthesiologist:: Renae Barfield APRN Complications:: None Pre-procedure Diagnosis:: Degenerative disc disease lumbar spine with lumbar radiculopathy symptoms, degenerative disc disease cervical spine with cervical radiculopathy symptoms Post-procedure Diagnosis:: Same Indications for Procedure:: Patient is a pleasant 54-year-old white male who presents today for intrathecal pain pump adjustment. Patient says that he was doing well until the rain today. He says his pain is 7 out of 10. He reports his pain to be mostly in his low back today. He would like an increase in his dose today. Patient also says he thought he was going to be able to get his stitches out today. He and I did have a long discussion at his last visit that he will need to refrain from using marijuana or any THC substances. Patient says he was told per Dr. garcia that he could take CBD oil with THC. I did reeducate the patient that he cannot take anything with THC. He does understand if he is positive on any further urine drug screens we will need to wean his medication in his intrathecal pump. We will see him back in 2 weeks to remove his sutures. Physical exam General: Alert and oriented x3, no acute distress, pleasant and cooperative, [on room air] Lungs: Respirations even and unlabored, symmetrical chest expansion Eyes: PERRL Musculoskeletal: Flexion and extension of cervical and lumbar spine somewhat guarded secondary to pain, deep tendon reflexes normal, strength in upper and lower extremities [5/5], [abnormal gait noted] Neurological: Speech clear, clinical information systems director equal, no gross sensory deficit Procedure Details:: Informed consent was obtained and the risk and benefits of the procedure were explained to the patient. Patient was taken to the procedure room where noninvasive monitoring was placed including noninvasive blood pressure cuff and pulse oximeter. Patient's pump was interrogated and was reprogrammed to morphine at 0.3 mg/day. The patient tolerated the procedure well with no complications. Plan and Disposition:: We will see the patient back in the clinic in 2 weeks to remove his sutures. His incision is well approximated, no redness, no drainage, no edema is noted to the site. Patient has been instructed to contact clinic if he has any concerns before his next appointment. I have encouraged the patient to pickler helper his Zofran today. The patient and I specifically discussed risk factors for COVID19. These risks include, but are not limited to age greater than 60, heart or lung disease, diabetes, immunosuppression, and travel. We also discussed NSAIDs may worsen COVID19 infection or symptoms. Patient should not use NSAIDs to treat COVID19 signs or symptoms. Patient was also informed that any type of corticosteroid of any form (oral or injection) will decrease the patient's immune system response and may increase the likelihood of COVID19 infection [address] symptoms[address] Rodriguez has reviewed this note and agrees with this plan of care. This note was dictated using voice recognition software and make contain errors or omissions.
== END ==
PROVIDERS: PCP Emergency Medicine; Visit Provider Clinical Nurse Specialist Family Health
DX: M51.16 Intervertebral disc disorders with radiculopathy, lumbar region (principal); M50.10 Cervical disc disorder with radiculopathy, unspecified cervical region; I63.9 Cerebral infarction, unspecified; I10 Essential (primary) hypertension; E78.5 Hyperlipidemia, unspecified; G45.9 Transient cerebral ischemic attack, unspecified; F41.9 Anxiety disorder, unspecified; F32.9 Major depressive disorder, single episode, unspecified; G89.29 Other chronic pain; F12.90 Cannabis use, unspecified, uncomplicated; Z80.9 Family history of malignant neoplasm, unspecified; Z82.49 Family history of ischemic heart disease and other diseases of the circulatory system; Z84.89 Family history of other specified conditions
CPT/HCPCS: 62368

== ENCOUNTER → 2019-12-04 09:21 | Outpatient (POV) | payer MEDICAID, SELFPAY ==
[2019-12-04 09:36] VITALS: BP 154/92; PULSE 92; RESP 18; O2SAT 98; BMI 21.5
--- NOTE | 2019-12-04 10:05 | HMH.PAINSOAP ---
[facility] Pain Management SOAP Note Subjective:: Patient is a pleasant 54-year-old white male who presents today for. He recently underwent an intrathecal pain pump implant. He is doing well today. He rates his pain a 3 out of 10. He says that this is the best he is felt in 20 years. He denies any side effects to the medications. He is here today to have his sutures removed. Patient is not having any problems today. Patient's Anurag #[id number] has been reviewed and is appropriate. Urine drug screens have been appropriate. Morphine equivalent is 0. Review of Systems General: No recent weight changes, no fever, no sleep disturbances Respiratory: No cough, no shortness of air, no recurring pulmonary infections Cardiovascular/peripheral vascular: No chest pain, no palpitations, no edema, no shortness of breath Gastrointestinal: No new onset incontinence, normal bowel movements reported Genitourinary: No new onset incontinence Musculoskeletal: Low back pain, neck pain Psychiatric: Normal mood/affect Neurological: [Denies weakness in extremities], [denies balance issues] Objective:: Physical exam General: Alert and oriented x3, no acute distress, pleasant and cooperative, [on room air] Lungs: Respirations even and unlabored, symmetrical chest expansion Eyes: PERRL Musculoskeletal: Flexion and extension of cervical and lumbar spine somewhat guarded secondary to pain, deep tendon reflexes normal, strength in upper and lower extremities [5/5], [abnormal gait noted] Neurological: Speech clear, computer clerk equal, no gross sensory deficit Assessment:: Degenerative disc disease cervical and lumbar spine, cervical and lumbar radiculopathy symptoms Plan:: Overall, the patient is doing well. We will plan to see him back in the clinic in a month. We will schedule patient for therapy for his chronic neck pain. Has been instructed to contact the clinic if he has any concerns before his next appointment. The patient and I specifically discussed risk factors for COVID19. These risks include, but are not limited to age greater than 60, heart or lung disease, diabetes, immunosuppression, and travel. We also discussed NSAIDs may worsen COVID19 infection or symptoms. Patient should not use NSAIDs to treat COVID19 signs or symptoms. Patient was also informed that any type of corticosteroid of any form (oral or injection) will decrease the patient's immune system response and may increase the likelihood of COVID19 [address] Rodriguez has reviewed this note and agrees with this plan of care. This note was dictated using voice recognition software and make contain errors or omissions. [facility] History I have reviewed the patient's past medical history: Yes Medical History: Reports:: Cerebrovascular Accident, Hyperlipidemia, Hypertension, Kidney Stones, Transient Ischemic Attacks (TIA) Denies:: Cancer, Diabetes Mellitus Type 1, Diabetes Mellitus Type 2, Internal Pacemaker, Lung Disease, MRSA, Seizures *Have you ever received a pneumonia vaccine?: Yes *Have you received a flu vaccine this season?: Yes Other Medical History: Reports: Other. Denies: Blood Transfusion Reaction Other Surgeries: Yes: No Previous Surgery, Cardiac Catheterization, Colonoscopy. No: Pacemaker Amputation: No Fractures: Yes (back, neck) - *Social History Smoking Status: Former smoker Tobacco Type: cigarettes # Packs/Day (cigarettes): 1 #Yrs smoked (if former smoker): 40 Alcohol Intake: never Alcohol Intake Frequency:: holidays/special occasions only Substance Use Type: marijuana *Occupational Status:: other Housing: house Household Members: none *Travel in the last 8 weeks: None Family Hx:: Cancer, Coronary Artery Disease
== END ==
PROVIDERS: PCP Emergency Medicine; Visit Provider Clinical Nurse Specialist Family Health
DX: M50.10 Cervical disc disorder with radiculopathy, unspecified cervical region (principal); M51.16 Intervertebral disc disorders with radiculopathy, lumbar region
CPT/HCPCS: 99212

== ENCOUNTER → 2019-12-15 08:45 | Outpatient (POV) | payer MEDICAID, SELFPAY ==
[2019-12-15 09:00] VITALS: BP 148/77; PULSE 74; RESP 18; TEMP 36.6; O2SAT 99; BMI 22.2
--- NOTE | 2019-12-15 09:31 | HMH.PMPROC ---
- Procedure Date: 12/15/19 Time: 09:31 Anesthesiologist:: Yuridia Alexander APRN Complications:: None Pre-procedure Diagnosis:: Degenerative disc disease lumbar spine with lumbar radiculopathy degenerative disc disease cervical spine with cervical radiculopathy Post-procedure Diagnosis:: Same Indications for Procedure:: Patient is a pleasant 54-year-old white male who presents today for an intrathecal pain pump adjustment. Patient was doing extremely well until this morning. He woke up with intense pain rating it a 9 out of 10. Patient denies side effects to his medication. Patient was given a one-time bolus of 0.05 mg of morphine. Patient pain went down to a 2. Overall he is doing well. Physical Exam General: Alert and oriented x3, no acute distress, pleasant and cooperative, [on room air] Lungs: Resps E/U, Symmetrical chest expansion, Eyes: PERRL Musculoskeletal: Flexion and extension of lumbar spine somewhat guarded secondary to pain, deep tendon reflexes normal, strength in upper and lower extremities [5/5], [abnormal gait noted] Neurological: speech clear, engraver steel plate equal, no gross sensory deficits Procedure Details:: Informed consent was obtained and the risk and benefits of the procedure were explained to the patient. The patient was taken to the procedure room where noninvasive monitoring was placed including noninvasive blood pressure cuff and pulse oximeter. Patient's pump was interrogated and reprogrammed. The infusion rate was increased his pain pump to 0.36 mg of morphine a day.. The patient tolerated the procedure well. Plan and Disposition:: We will see the patient back in 2 weeks. We will order a PTC and set this up at this visit. He has been instructed to call the office if he has any issues prior to his next appointment. Dr. Rodriguez has reviewed this note and agrees with this plan of care. This note was dictated using voice recognition software and may contain errors or omissions
== END ==
PROVIDERS: PCP Emergency Medicine; Visit Provider Clinical Nurse Specialist Family Health
DX: M51.16 Intervertebral disc disorders with radiculopathy, lumbar region (principal); M50.10 Cervical disc disorder with radiculopathy, unspecified cervical region
CPT/HCPCS: 99212

== ENCOUNTER → 2019-12-25 08:30 | Outpatient (POV) | payer MEDICAID, SELFPAY ==
[2019-12-25 08:54] VITALS: BP 146/78; PULSE 73; RESP 16; TEMP 36.9; BMI 49.0
--- NOTE | 2019-12-25 09:08 | P.PCN_ITS ---
- Procedure Date: 12/25/19 Time: 09:08 Anesthesiologist:: Yuridia Alexander APRN Complications:: None Pre-procedure Diagnosis:: Degenerative disc disease lumbar spine lumbar radiculopathy degenerative disc disease cervical spine cervical radiculopathy Post-procedure Diagnosis:: Same Indications for Procedure:: Patient is a very pleasant 54-year-old white male who presents today for int rathecal pain pump refill program. Patient was doing extremely well after his last reprogram however he overdid it and states that his pain is now a 9 or 10. We will set up his PTC today. He is currently at 0.36 mg of morphine a day. He denies any side effects. Physical Exam General: Alert and oriented x3, no acute distress, pleasant and cooperative, [on room air] Lungs: Resps E/U, Symmetrical chest expansion, Eyes: PERRL Musculoskeletal: Flexion and extension of lumbar spine somewhat guarded secondary to pain, deep tendon reflexes normal, strength in upper and lower extremities [5/5], [abnormal gait noted] Neurological: speech clear, small arms repairer equal, no gross sensory deficits Procedure Details:: Informed consent was obtained and the risk and benefits of the procedure were explained to the patient. The patient was taken to the procedure room where noninvasive monitoring was placed including noninvasive blood pressure cuff and pulse oximeter. Patient's pump was interrogated and reprogrammed. The infusion rate was increased to 0.5 mg a day of morphine and his PTC was set up at 0.05 mg every 6 hours as needed. The patient tolerated the procedure well. Plan and Disposition:: I will follow-up with the patient at his next intrathecal pain pump refill and reprogram he has been instructed to call the office if he has any issues prior to his next appointment. Dr. Rodriguez has reviewed this note and agrees with this plan of care. This note was dictated using voice recognition software and may contain errors or omissions
== END ==
PROVIDERS: PCP Emergency Medicine; Visit Provider Clinical Nurse Specialist Family Health
DX: M51.16 Intervertebral disc disorders with radiculopathy, lumbar region (principal); M50.10 Cervical disc disorder with radiculopathy, unspecified cervical region; E78.5 Hyperlipidemia, unspecified; I10 Essential (primary) hypertension; I20.9 Angina pectoris, unspecified; Z86.73 Personal history of transient ischemic attack (TIA), and cerebral infarction without residual deficits
CPT/HCPCS: 62368

== ENCOUNTER → 2020-01-08 08:11 | Outpatient (POV) | payer MEDICARE, SELFPAY ==
[2020-01-08 08:38] VITALS: BP 108/61; PULSE 74; RESP 16; TEMP 36.8; O2SAT 100; BMI 22.2
--- NOTE | 2020-01-08 08:51 | P.PCN_ITS ---
- Procedure Date: 01/08/20 Time: 08:51 Anesthesiologist:: Renae Barfield APRN Complications:: None Pre-procedure Diagnosis:: Degenerative disc disease lumbar spine with lumbar radiculopathy symptoms, degenerative disc disease cervical spine with cervical radiculopathy symptoms Post-procedure Diagnosis:: Same Indications for Procedure:: Patient is a pleasant 54-year-old white male who presents today for intrathecal pain pump adjustment. He has been treated for chronic low back pain with lumbar radiculopathy symptoms as well as chronic neck pain with cervical radiculopathy symptoms. He rates his pain a 7 out of 10 today. He would like an increase in his medication. He does say it is working for him up to 60%. He denies any side effects to the medication. The patient's Anurag #[id number] has been reviewed and is appropriate. His urine drug screens have been appropriate. His morphine equivalent is 0. Currently on morphine at 0.5 mg/day, PTC at 0.05 mg up to 6 times daily Physical exam General: Alert and oriented x3, no acute distress, pleasant and cooperative, [on room air] Lungs: Respirations even and unlabored, symmetrical chest expansion Eyes: PERRL Musculoskeletal: Flexion and extension of lumbar and cervical spine somewhat guarded secondary to pain, deep tendon reflexes normal, strength in upper and lower extremities [5/5], [abnormal gait noted] Neurological: Speech clear, concrete wall grinder operator equal, no gross sensory deficit Procedure Details:: Informed consent was obtained and the risk and benefits of the procedure were explained to the patient. Patient was taken to the procedure room where noninvasive monitoring was placed including noninvasive blood pressure cuff and pulse oximeter. Patient's pump was interrogated and was reprogrammed to morphine at 0.6 mg/day. The patient tolerated the procedure well with no complications. Plan and Disposition:: We will plan to see the patient back in the clinic at his next intrathecal pain pump refill and reprogram. If he continues to have pain he has been advised to contact clinic. The patient and I specifically discussed risk factors for COVID19. These risks include, but are not limited to age greater than 60, heart or lung disease, diabetes, immunosuppression, and travel. We also discussed NSAIDs may worsen COVID19 infection or symptoms. Patient should not use NSAIDs to treat COVID19 signs or symptoms. Patient was also informed that any type of corticosteroid of any form (oral or injection) will decrease the patient's immune system response and may increase the likelihood of COVID19 [address] Rodriguez has reviewed this note and agrees with this plan of care. This note was dictated using voice recognition software and make contain errors or omissions.
== END ==
PROVIDERS: PCP Emergency Medicine; Visit Provider Clinical Nurse Specialist Family Health
DX: M51.16 Intervertebral disc disorders with radiculopathy, lumbar region (principal); M50.10 Cervical disc disorder with radiculopathy, unspecified cervical region
CPT/HCPCS: 62368

== ENCOUNTER → 2020-01-22 14:08 | Outpatient (POV) | payer MEDICARE, SELFPAY ==
[2020-01-22 14:35] VITALS: BP 133/77; PULSE 71; RESP 18; O2SAT 98; BMI 22.2
--- NOTE | 2020-01-22 14:57 | HMH.PMPROC ---
- Procedure Date: 01/22/20 Time: 14:57 Anesthesiologist:: Renae Barfield APRN Complications:: None Pre-procedure Diagnosis:: Degenerative disc disease lumbar spine with lumbar radiculopathy symptoms, degenerative disc disease cervical spine with cervical radiculopathy symptoms Post-procedure Diagnosis:: Same Indications for Procedure:: Patient is a pleasant 54-year-old white male who presents today for intrathecal pain pump adjustment. He has been treated for chronic low back pain with lumbar radiculopathy symptoms. Patient rates his pain an 8 out of 10 today. He says that he is having worsening pain. He was increased at his last appointment with [facility] at 0.05 mg up to 6 times daily. His current dose daily is morphine at 0.6 mg/day. Patient says that he has been taking edible's of THC again for pain relief. Again, we had a long conversation concerning THC. He understands that if he does test positive again at the next visit or if his THC levels continue to increase, we will wean the patient off of his intrathecal therapy. We will change the patient to periodic flow today to see if he gets relief and. Physical exam General: Alert and oriented x3, no acute distress, pleasant and cooperative, [on room air] Lungs: Respirations even and unlabored, symmetrical chest expansion Eyes: PERRL Musculoskeletal: Flexion and extension of cervical and lumbar spine somewhat guarded secondary to pain, deep tendon reflexes normal, strength in upper and lower extremities [5/5], [abnormal gait noted] Neurological: Speech clear, dairy laboratory technician equal, no gross sensory deficit Procedure Details:: Informed consent was obtained and the risk and benefits of the procedure were explained to the patient. Patient was taken to the procedure room where noninvasive monitoring was placed including noninvasive blood pressure cuff and pulse oximeter. Patient's pump was interrogated and was reprogrammed to periodic flow at morphine at 0.2 mg every 4 hours, daily dose of 1.2 mg/day. The patient tolerated the procedure well with no complications. Plan and Disposition:: Again, the patient and I had a long discussion concerning THC. If he continues to have THC noted to his drug strength, we will have to wean the patient with his intrathecal therapy. We will plan to see him back in the clinic and fluids reassess his symptoms. He has been instructed to contact clinic if he has any concerns before his next appointment. [facility] #[id number] has been reviewed and is appropriate. Morphine equivalent is 0. Drug screen has been positive for THC. Dr. Rodriguez has reviewed this note and agrees with this plan of care. This note was dictated using voice recognition software and make contain errors or omissions.
== END ==
PROVIDERS: PCP Emergency Medicine; Visit Provider Clinical Nurse Specialist Family Health
DX: M51.16 Intervertebral disc disorders with radiculopathy, lumbar region (principal); M50.10 Cervical disc disorder with radiculopathy, unspecified cervical region
CPT/HCPCS: 62368

== ENCOUNTER → 2020-02-05 13:23 | Outpatient (POV) | payer MEDICARE, SELFPAY ==
[2020-02-05 13:51] VITALS: BP 138/85; PULSE 71; RESP 18; O2SAT 99; BMI 22.2
--- NOTE | 2020-02-05 13:52 | HMH.PMPROC ---
- Procedure Date: 02/05/20 Time: 13:52 Anesthesiologist:: Renae Barfield APRN Complications:: None Pre-procedure Diagnosis:: Degenerative disc disease lumbar spine with lumbar radiculopathy symptoms, degenerative disc disease cervical spine with cervical radiculopathy symptoms Post-procedure Diagnosis:: Same Indications for Procedure:: She is a 54-year-old white male who presents today for intrathecal pain pump adjustment. He has been treated for chronic low back pain as well as chronic neck pain with lumbar and cervical radiculopathy symptoms. He rates his pain a 6 out of 10 today. He is currently on periodic flow at 0.2 mg every 4 hours. Patient's dose is morphine at 1.2 mg/day. He says that it is helping with his pain, however, he is having some increased pain in his low back. He would like an increase today. He is also asked for something for arthritis . He says he is unable to tolerate anti-inflammatories due to GI upset. Physical exam General: Alert and oriented x3, no acute distress, pleasant and cooperative, [on room air] Lungs: Respirations even and unlabored, symmetrical chest expansion Eyes: PERRL Musculoskeletal: Flexion and extension of lumbar spine somewhat guarded secondary to pain, deep tendon reflexes normal, strength in upper and lower extremities [5/5], [abnormal gait noted] Neurological: Speech clear, merchandise complaint adjuster equal, no gross sensory deficit Procedure Details:: Informed consent was obtained and the risk and benefits of the procedure were explained to the patient. Patient was taken to the procedure room where noninvasive monitoring was placed including noninvasive blood pressure cuff and pulse oximeter. Patient's pump was interrogated and was reprogrammed to morphine at 0.25 mg every 4 hours, daily dose at 1.5 mg/day. The patient tolerated the procedure well with no complications. Plan and Disposition:: We will see the patient back at his next intrathecal pain pump refill and reprogram. He was given Pennsaid for him to see if this is beneficial to his pain since he is unable to tolerate anti-inflammatories orally. We will see him back in the clinic at his refill to reassess his symptoms. He has been instructed to contact clinic if he has any concerns before his next appointment. The patient and I specifically discussed risk factors for COVID19. These risks include, but are not limited to age greater than 60, heart or lung disease, diabetes, immunosuppression, and travel. We also discussed NSAIDs may worsen COVID19 infection or symptoms. Patient should not use NSAIDs to treat COVID19 signs or symptoms. Patient was also informed that any type of corticosteroid of any form (oral or injection) will decrease the patient's immune system response and may increase the likelihood of COVID19 infection [address] symptoms[address] Dr. Rodriguez has reviewed this note and agrees with this plan of care. This note was dictated using voice recognition software and make contain errors or omissions.
== END ==
PROVIDERS: PCP Emergency Medicine; Visit Provider Clinical Nurse Specialist Family Health
DX: M51.16 Intervertebral disc disorders with radiculopathy, lumbar region (principal); M50.30 Other cervical disc degeneration, unspecified cervical region
CPT/HCPCS: 62368

== ENCOUNTER 2020-03-01 14:35 | Day surgery (SDC) | payer MEDICARE, MEDICAID, SELFPAY ==
[2020-03-01 15:05] VITALS: BP 138/79; PULSE 63; RESP 18; TEMP 36.8; O2SAT 100; BMI 22.2
--- NOTE | 2020-03-01 15:45 | HMH.PMPROC ---
- Procedure Date: 03/01/20 Time: 15:46 Anesthesiologist:: Yuridia Alexander APRN Complications:: None Pre-procedure Diagnosis:: Degenerative disc disease lumbar spine lumbar radiculopathy symptoms, degenerative disc disease cervical spine cervical radiculopathy symptoms Post-procedure Diagnosis:: Same Indications for Procedure:: Patient is a pleasant 54-year-old white male who presents today for intrathecal pain pump refill and reprogram. He is having quite a bit of tenderness around intrathecal pain pump site. He rates his pain today a 6 out of 10 he states it is little higher due to weather he had an increase at his last visit and stated it did very well for him. He does not want to increase today he denies side effects to his medication. Patient is going to be drug screen today. [facility] #[id number] reviewed. Procedure Details:: Informed consent was obtained and the risk and benefits of the procedure were explained to the patient. The patient was taken to the procedure room where noninvasive monitoring was placed including noninvasive blood pressure cuff and pulse oximeter. Patient's pump was interrogated. The area over the pump was cleansed with chlorhexidine as a cleansing solution. In sterile fashion the pump was accessed with a 22-gauge needle. Approximately 2.5 mL's were removed of the pump solution and discarded appropriately. The pump was then refilled with 20 mL's of morphine 5 mg/mL. The needle was withdrawn and a bandage was placed over the puncture site. The infusion rate was reprogrammed to continue at 0.25 mg every 4 hours. The patient tolerated the procedure well. Plan and Disposition:: We will follow-up with the patient at his next intrathecal pain pump refill and reprogram he has been instructed to call the office if he has any issues prior to his next appointment. Dr. Rodriguez has reviewed this note and agrees with this plan of care. This note was dictated using voice recognition software and may contain errors or omissions
[2020-03-01 15:49] VITALS: BP 138/88; PULSE 85; RESP 18
[2020-03-01 15:53] VITALS: BP 146/88; PULSE 85; RESP 18; O2SAT 98
[2020-03-01 16:04] VITALS: BP 119/77; PULSE 61; RESP 18; O2SAT 100
== END 2020-03-01 16:05 | disposition home or self-care (01) ==
LOC: SC.PAINP 14:37
PROVIDERS: PCP Emergency Medicine; Visit Provider Clinical Nurse Specialist Family Health
DX: M51.16 Intervertebral disc disorders with radiculopathy, lumbar region (principal); M50.10 Cervical disc disorder with radiculopathy, unspecified cervical region; Z45.1 Encounter for adjustment and management of infusion pump
CPT/HCPCS: 95991

== ENCOUNTER 2020-03-11 15:08 | Emergency (ER) | payer MEDICARE, MEDICAID, SELFPAY ==
[2020-03-11 15:09] VITALS: BP 142/107; PULSE 112; RESP 18; TEMP 37; O2SAT 98; BMI 22.8
--- NOTE | 2020-03-11 15:44 | XR_ITS ---
PROCEDURE: XR CHEST PORTABLE CLINICAL HISTORY: chest pain COMPARISON: CR CXR1VP XR chest portable from 07/24/2017 CR CXR2V XR chest 2V from 07/23/2018 CR CXR2V XR chest 2V from 07/29/2018 FINDINGS: The cardiomediastinal silhouette and pulmonary vascularity are within normal limits. The lungs are clear without infiltrates, suspicious nodules, or pleural effusions. No acute bony abnormalities. IMPRESSION: No acute findings. Dictated by: Rayshawn Romero MD 03/11/2020 16:35 Rayshawn Romero MD in [place] 03/11/2020 16:35
[2020-03-11 16:08] LABS: Microscopic, Urine URINE MICROSCOPIC (MICROSCOPIC)
[2020-03-11 16:10] LABS: Basophils % 0.3 % (0.1-2.0); Eosinophils % 0.4 % (0.1-12.0); Hematocrit 51.3 % (42.0-52.0); Hemoglobin 17.7 g/dL (14.1-18.0); Lymphocytes # 3.2 K/mm3 (0.7-4.5); Lymphocytes % 27.6 % (10-50); Mean Corpuscular HGB Conc 34.6 g/dL (31.8-35.4); Mean Corpuscular Hemoglobin 30.3 pg (27.0-31.2); Mean Corpuscular Volume 87.5 fl (80-94); Mean Platelet Volume 6.9 fl (7.4-10.4); Monocytes # 0.7 K/mm3 (0.1-1.0); Monocytes % 6.4 % (1.7-9.3); Neutrophils # 7.5 K/mm3 (1.8-7.8); Neutrophils % 65.3 % (37.0-80.0); Platelet Count 316 K/mm3 (142-424); Red Blood Count 5.86 M/mm3 (4.60-6.20); Red Cell Distribution Width 14.3 % (11.5-17.5); White Blood Count 11.5 K/mm3 (4.8-10.8)
[2020-03-11 16:14] LABS: Appearance,Urine CLEAR (Clear); Blood, Urine 3+ (Negative); Color,Urine YELLOW (Yellow); Glucose,Urine (UA) Negative (Negative); Ketones,Urine 1+ (Negative); Leukocyte Esterase,Urine TRACE (Negative); Nitrate,Urine Negative (Negative); Protein,Urine 1+ (Negative); Specific Gravity, Urine >= 1.030 (1.005-1.030); Urobilinogen,Urine 0.2 EU/dl (0.2)
[2020-03-11 16:17] LABS: Bilirubin,Urine Negative (Negative)
[2020-03-11 16:34] LABS: Bacteria,Urine 1+ /lpf; RBC,Urine Occasional #/hpf (0-3)
[2020-03-11 16:37] LABS: Chloride 94 mmol/L (98-107); Potassium 3.6 mmoL/L (3.5-5.1); Sodium 140 mmol/L (136-145)
[2020-03-11 16:39] VITALS: BP 146/84; PULSE 72; RESP 20; O2SAT 99
[2020-03-11 16:40] LABS: Alanine Aminotransferase 23 U/L (12-78); Albumin Level 5.4 g/dl (3.5-5.0); Albumin/Globulin Ratio 1.5 (1.1-1.8); Alkaline Phosphatase 58 U/L (38-126); Anion Gap 20.6 mEq/L (5-15); Aspartate Amino Transferase 36 U/L (17-59); Bilirubin,Total 0.7 mg/dl (0.2-1.3); Blood Urea Nitrogen 30 mg/dl (9-20); Calcium 10.9 mg/dl (8.4-10.2); Carbon Dioxide 29 mmol/L (22.0-30.0); Creatinine Clearance Estimated 50 mL/min (50-200); Estimated Glomerular Filt Rate 42 ml/min (>60); GFR (African American) 51 ML/MIN (>60); Globulin 3.7 g/dL (1.3-3.2); Glucose 115 mg/dl (74-100); Lipase 85 U/L (23-300); Total Protein,Serum 9.1 g/dl (6.3-8.2)
[2020-03-11 16:53] LABS: Troponin I < 0.01 ng/ml (0.00-0.034)
--- NOTE | 2020-03-11 18:42 | HMH.EDGENADL ---
ED Disposition Clinical Impression: Dehydration, mild, Acute kidney injury UTI (urinary tract infection) Qualifiers: Encounter type: initial encounter Disposition: Home, Self-Care Condition on Discharge: Good Additional Instructions: Finish the entire course of antibiotics. Stay hydrated with extra intake and return to the ED for any new or worsening symptoms. Prescriptions: Cefdinir [Omnicef 300mg Capsule] 300 mg PO BID #20 cap Prescription Printed Referrals: Smooth Thakur MD [Primary Care Provider] - - Critical Care Critical Care Time: No Attestation: On 03/11/20, the high probability of a clinically significant, sudden or life threatening deterioration of the following system(s) required my full and direct attention, intervention and personal management. The time I documented below is in addition to time spent performing reported procedures but includes the following listed in this critical care notation. Medical Decision Making - Medical Records Medical records reviewed: Yes: I reviewed the patient's medical records. MR Comment: Laboratory data determine acute kidney injury small bump in creatinine from 1.5 in October to 1.7 today. - Anurag Inquiry Pt receiving controlled substance: No Vital Signs: 03/11/20 15:09 03/11/20 16:39 Temperature 98.6 F Temperature Source Oral Pulse Rate [Radial] 112 H 72 Respiratory Rate 18 20 Blood Pressure [Right Arm] 142/107 H 146/84 H Blood Pressure Mean [Right Arm] 118 104 Blood Pressure Source [Right Arm] Automatic Cuff Blood Pressure Position [Right Arm] Sitting Sitting 02 Sat by Pulse Oximetry 98 99 Oxygen Delivery Method Room Air Room Air - Lab Data Lab Results 03/11/20 16:00: Urine Color Yellow, Urine Appearance Clear, Urine pH 6.0, Ur Specific [place] >= 1.030, Urine Protein 1+, Urine Glucose (UA) Negative, Urine Ketones 1+, Urine Blood 3+, Urine Nitrate Negative, Urine Bilirubin Negative, Urine Urobilinogen 0.2, Ur Leukocyte Esterase Trace, Urine RBC Occasional, Urine WBC 10-20, Ur Squamous Epith Cells 5-10, Urine Bacteria 1+ 03/11/20 16:00: WBC 11.5 H, RBC 5.86, Hgb 17.7, Hct 51.3, MCV 87.5, MCH 30.3, MCHC 34.6, RDW 14.3, Plt Count 316, MPV 6.9 L, Neut % (Auto) 65.3, Lymph % (Auto) 27.6, [place] % (Auto) 6.4, Eos % (Auto) 0.4, Baso % (Auto) 0.3, Neut # (Auto) 7.5, Lymph # (Auto) 3.2, [place] # (Auto) 0.7, Eos # (Auto) 0.0, Baso # (Auto) 0.0 03/11/20 16:00: Sodium 140, Potassium 3.6, Chloride 94 L, Carbon Dioxide 29, Anion Gap 20.6 H, BUN 30 H, Creatinine 1.70 H, Estimated Creat Clear 50, Estimated GFR 42 L, Est GFR ( Amer) 51 L, Glucose 115 H, Calcium 10.9 H, Total Bilirubin 0.7, AST 36, ALT 23, Alkaline Phosphatase 58, Troponin I < 0.01, Total Protein 9.1 H, Albumin 5.4 H, Globulin 3.7 H, Albumin/Globulin Ratio 1.5, Lipase 85 Result diagrams: 03/11/20 16:00 03/11/20 16:00 Orders (Tests/Meds): ED MEDICATIONS Discontinued Medications Generic Name Dose Route Start Last Admin Trade Name Freq PRN Reason Stop Dose Admin Lactated Ringer's 1,000 mls @ 999 mls/hr 03/11/20 15:45 03/11/20 16:08 Lactated Ringer's 1000 Ml Bag IV 03/11/20 16:45 999 mls/hr .Q1H1M MICHAEL Administration Ondansetron HCl 4 mg 03/11/20 15:44 03/11/20 16:07 Ondansetron 4mg/2ml Vial IV 03/11/20 15:45 4 mg ONCE ONE Administration ORDERS Category Date Time Status Troponin I Q3H Lab 03/11/20 18:45 Ordered Troponin I Q3H Lab 03/11/20 21:45 Ordered Urine Culture Stat Micro 03/11/20 16:00 Received ECG Request by /Nse Stat Y 03/11/20 15:44 Ordered Medical Decision Narrative: 54-year-old male who presents with acute anxiety and generalized feelings of aches that are now on initial exam in his chest. He reports nausea and vomiting and dehydration of the last 2 days. Patient's vital signs are hemodynamically stable and he is PERC negative in regards to pulmonary embolism. Low suspicion for ACS however will obtain 1 troponin level.
[2020-03-11 19:03] VITALS: BP 148/93; PULSE 82; RESP 20; TEMP 36.8; O2SAT 100
== END 2020-03-11 19:00 | disposition home or self-care (01) ==
PROVIDERS: Emergency Provider Student in an Organized Health Care Education/Training Program; PCP Emergency Medicine
DX: E86.0 Dehydration (principal); N17.9 Acute kidney failure, unspecified; F41.9 Anxiety disorder, unspecified; I10 Essential (primary) hypertension; E78.5 Hyperlipidemia, unspecified; Z87.442 Personal history of urinary calculi; Z87.891 Personal history of nicotine dependence
CPT/HCPCS: 71045; 80053; 81001; 83690; 84484; 85025; 87086; 87088; 87186; 96375; 99283; J2405

== ENCOUNTER → 2020-03-19 10:54 | Outpatient (POV) | payer MEDICARE, MEDICAID, SELFPAY ==
[2020-03-19 11:14] VITALS: BP 138/81; PULSE 74; RESP 18; TEMP 36.4; O2SAT 98; BMI 22.2
--- NOTE | 2020-03-19 11:42 | HMH.PMPROC ---
- Procedure Date: 03/19/20 Time: 11:42 Anesthesiologist:: Tyson Rodriguez MD Complications:: None Pre-procedure Diagnosis:: Degenerative disc disease of lumbar spine with lumbar radiculopathy symptoms and degenerative disc disease of the cervical spine with cervical radiculopathy symptoms Post-procedure Diagnosis:: Same Indications for Procedure:: Patient is a pleasant 54-year-old white male who we are treating for neck pain low back pain with cervical and lumbar radiculopathy symptoms. He continues on an intrathecal morphine pain pump infusion at 1.5 mg/day. He is on periodic flow with 0.25 mg boluses every 4 hours. He does continue to smoke marijuana. He has decreased his smoking significantly. I had a long discussion with this patient and told him that he needs to come off completely off of his marijuana usage if we regain continue with his intrathecal morphine infusion. Patient has decreased his smoking significantly and he will continue to decrease as we help take care of his pain and anxiety. We will adjust his boluses today to 0.2 mg every 3 hours. This will increase his daily dose to 1.6 mg/day. We will also continue to send confirmation drug screening to assess his levels of marijuana usage. As long as it comes down we will continue with his intrathecal infusion. Procedure Details:: Adjustment of intrathecal morphine infusion with reprogram pump Informed consent was obtained and the risk and benefits of the procedure was explained to the patient. Patient was taken to the procedure room. The pump was interrogated. Intrathecal morphine infusion was adjusted to 0.2 mg boluses every 3 hours for total of 8 boluses a day increasing his daily dose to 1.6 mg/day of intrathecal morphine. Patient tolerated the procedure well with no complications. Plan and Disposition:: We will follow-up with him in 2 weeks. We will continue to monitor his drug screens with confirmation to assess his levels of marijuana usage as long as it continues to come down we will continue his intrathecal morphine infusion. If it does not come down we will wean him off his intrathecal morphine pump.
== END ==
PROVIDERS: PCP Emergency Medicine; Visit Provider Anesthesiology
DX: M51.16 Intervertebral disc disorders with radiculopathy, lumbar region (principal); M50.10 Cervical disc disorder with radiculopathy, unspecified cervical region
CPT/HCPCS: 62368

== ENCOUNTER 2020-04-12 13:26 | Day surgery (SDC) | payer MEDICARE, MEDICAID, SELFPAY ==
[2020-04-12 13:37] VITALS: BP 148/80; PULSE 67; RESP 18; TEMP 36.3; O2SAT 96; BMI 23.6
[2020-04-12 14:04] VITALS: BP 162/74; PULSE 74; RESP 18
[2020-04-12 14:05] VITALS: BP 165/78; PULSE 85; RESP 18; O2SAT 99
--- NOTE | 2020-04-12 14:06 | HMH.PMPROC ---
- Procedure Date: 04/12/20 Time: 14:06 Anesthesiologist:: Yuridia Alexander APRN Complications:: None Pre-procedure Diagnosis:: Degenerative disc disease lumbar spine lumbar radiculopathy symptoms and degenerative disc disease cervical spine cervical radiculopathy symptoms Post-procedure Diagnosis:: Same Indications for Procedure:: She is a very pleasant 54-year-old white male who presents today for intrathecal pain pump refill and reprogram. He is currently at a periodic flow of 0.2 mg every 3 hours. We are going to change this to a 0.2 mg for over 9 periods instead of 8. Patient overall doing well rating his pain a 2 out of 10. Patient states he is significantly better than he was previously. He denies side effects to his medication. [facility] #[id number] reviewed and appropriate. Physical Exam General: Alert and oriented x3, no acute distress, pleasant and cooperative, [on room air] Lungs: Resps E/U, Symmetrical chest expansion, Eyes: PERRL Musculoskeletal: Flexion and extension of lumbar spine somewhat guarded secondary to pain, deep tendon reflexes normal, strength in upper and lower extremities [5/5], [abnormal gait noted] Neurological: speech clear, ambulance assistant equal, no gross sensory deficits Procedure Details:: Informed consent was obtained and the risk and benefits of the procedure were explained to the patient. The patient was taken to the procedure room where noninvasive monitoring was placed including noninvasive blood pressure cuff and pulse oximeter. Patient's pump was interrogated. The area over the pump was cleansed with chlorhexidine as a cleansing solution. In sterile fashion the pump was accessed with a 22-gauge needle. Approximately 7 mL's were removed of the pump solution and discarded appropriately. The pump was then refilled with 20 mL's of morphine 5 mg/mL. The needle was withdrawn and a bandage was placed over the puncture site. The infusion rate was reprogrammed to 0.2 mg every 2 hours and 40 minutes for total daily dose of 1.8 mg/day. The patient tolerated the procedure well. Plan and Disposition:: We will schedule the patient for his next intrathecal pain pump refill program he has been instructed to call the office if he has any issues prior to his next appointment. Dr. Rodriguez has reviewed this note and agrees with this plan of care. This note was dictated using voice recognition software and may contain errors or omissions
[2020-04-12 14:17] VITALS: BP 142/83; PULSE 67; RESP 18; O2SAT 98
== END 2020-04-12 14:18 | disposition home or self-care (01) ==
LOC: SC.PAINP 13:27
PROVIDERS: PCP Emergency Medicine; Visit Provider Clinical Nurse Specialist Family Health
DX: M51.16 Intervertebral disc disorders with radiculopathy, lumbar region (principal); M50.10 Cervical disc disorder with radiculopathy, unspecified cervical region; Z45.1 Encounter for adjustment and management of infusion pump; I10 Essential (primary) hypertension; K21.9 Gastro-esophageal reflux disease without esophagitis; F41.9 Anxiety disorder, unspecified; F32.9 Major depressive disorder, single episode, unspecified; G43.909 Migraine, unspecified, not intractable, without status migrainosus; Z86.73 Personal history of transient ischemic attack (TIA), and cerebral infarction without residual deficits
CPT/HCPCS: 62370

== ENCOUNTER → 2020-04-13 16:47 | Outpatient (CLI) | payer MEDICARE, MEDICAID, SELFPAY | PROVIDERS: Visit Provider Emergency Medicine | DX: R82.90 Unspecified abnormal findings in urine (principal) | CPT/HCPCS: 87086 ==

== ENCOUNTER 2020-04-21 17:55 | Emergency (ER) | payer MEDICARE, MEDICAID, SELFPAY ==
--- NOTE | 2020-04-21 17:54 | ECG_ITS ---
APPROVED REPORT Exam: Resting ECG HR:74 bpm ECG Measurements Heart Rate 74 AXES TX 150 P 57 QRSd 76 QRS 36 QT 376 T 62 QTc 417 Conclusion Normal sinus rhythm Left atrial abnormality Borderline ECG Electronically signed by : Mina Currie, 04/22/2020 14:26:50
[2020-04-21 17:56] VITALS: BP 189/103; PULSE 73; RESP 16; TEMP 36.6; O2SAT 98; BMI 22.9
--- NOTE | 2020-04-21 18:00 | XR_ITS ---
PROCEDURE: XR CHEST PORTABLE CLINICAL HISTORY: CHEST PAIN COMPARISON: CR CXR2V XR chest 2V from 07/23/2018 CR CXR2V XR chest 2V from 07/29/2018 CR XR CHEST PORTABLE from 03/11/2020 FINDINGS: The cardiomediastinal silhouette and pulmonary vascularity are within normal limits. The lungs are clear without infiltrates, suspicious nodules, or pleural effusions. No acute bony abnormalities. IMPRESSION: No acute findings. Dictated by: Rayshawn Romero MD 04/22/2020 07:18 Rayshawn Romero MD in [place] 04/22/2020 07:18
[2020-04-21 18:07] VITALS: BP 141/90; PULSE 78
[2020-04-21 18:13] LABS: Chloride 98 mmol/L (98-107); Potassium 3.5 mmoL/L (3.5-5.1); Sodium 135 mmol/L (136-145)
[2020-04-21 18:14] VITALS: BP 104/64
[2020-04-21 18:16] LABS: Anion Gap 12.5 mEq/L (5-15); Blood Urea Nitrogen 19 mg/dl (9-20); Carbon Dioxide 28 mmol/L (22.0-30.0); Creatinine Clearance Estimated 67 mL/min (50-200); Estimated Glomerular Filt Rate 58 ml/min (>60); GFR (African American) 70 ML/MIN (>60)
[2020-04-21 18:17] LABS: Calcium 9.8 mg/dl (8.4-10.2); Glucose 111 mg/dl (74-100)
--- NOTE | 2020-04-21 18:23 | HMH.EDGENADL ---
ED Disposition Condition on Discharge: Good - Critical Care Critical Care Time: No <Roni Menonden - Last Filed: 04/21/20 20:27> <Smooth Thakur - Last Filed: 04/21/20 21:45> Clinical Impression: Chest pain Qualifiers: Chest pain type: other chest pain Qualified Code(s): R07.89 - Other chest pain Disposition: Home, Self-Care Instructions: DI for Atypical Chest Pain Additional Instructions: see card sunday 9 am Prescriptions: Bisoprolol Fumarate [Bisoprolol 5mg Tablet] 5 mg PO DAILY #30 tab Transmission Status: Pending to [email or web address] # Atorvastatin Calcium [Lipitor 40mg Tab] 40 mg PO HS #30 tab Transmission Status: Pending to [email or web address] # Referrals: Smooth Thakur MD [Primary Care Provider] - Zac Silverman MD [Staff Physician] - Attestation: On 04/21/20, the high probability of a clinically significant, sudden or life threatening deterioration of the following system(s) required my full and direct attention, intervention and personal management. The time I documented below is in addition to time spent performing reported procedures but includes the following listed in this critical care notation. Medical Decision Making - Medical Records Medical records reviewed: Yes: I reviewed the patient's medical records. - Anurag Inquiry Pt receiving controlled substance: No - Lab Data Result diagrams: 04/21/20 18:00 04/21/20 18:00 <Roni Menon - Last Filed: 04/21/20 20:27> - Lab Data Lab results reviewed: Yes: I reviewed the patient's lab results. Result diagrams: 04/21/20 18:00 04/21/20 18:00 - Physician Consults Physician Consulted: vern Reason -: Pt condition - Reevaluation(s) Time: 21:42 - NERIS Score for Non-Stemi Age of Patient: 50-59 years old Heart Rate: 70-89 bpm Systolic Blood Pressure: 160-199 mmHg Serum Creatinine: 1.20-1.59 mg/dl CHF [place] Class: I-No CHF Other Risk Factors: None Non-Stemi Risk Score: 70 <Smooth Thakur - Last Filed: 04/21/20 21:45> Vital Signs: 04/21/20 17:56 04/21/20 18:07 04/21/20 18:14 Temperature 98 F Temperature Source Oral Pulse Rate [Radial] 73 78 Respiratory Rate 16 Blood Pressure [Right Arm] 189/103 H 141/90 H 104/64 L Blood Pressure Mean [Right Arm] 131 107 77 Blood Pressure Source [Right Arm] Blood Pressure Position [Right Arm] Sitting Sitting Sitting 02 Sat by Pulse Oximetry 98 Oxygen Delivery Method Room Air 04/21/20 18:30 04/21/20 19:05 Temperature Temperature Source Pulse Rate [Radial] 65 64 Respiratory Rate 20 16 Blood Pressure [Right Arm] 117/75 125/81 Blood Pressure Mean [Right Arm] 89 95 Blood Pressure Source [Right Arm] Automatic Cuff Automatic Cuff Blood Pressure Position [Right Arm] Sitting Sitting 02 Sat by Pulse Oximetry 97 94 L Oxygen Delivery Method Room Air - Lab Data Lab Results 04/21/20 18:00: WBC 11.1 H, RBC 4.94, Hgb 14.5, Hct 43.7, MCV 88.6, MCH 29.5, MCHC 33.2, RDW 14.8, Plt Count 299, MPV 7.6, Neut % (Auto) 63.2, Lymph % (Auto) 28.6, [place] % (Auto) 6.9, Eos % (Auto) 1.0, Baso % (Auto) 0.3, Neut # (Auto) 7.1, Lymph # (Auto) 3.2, [place] # (Auto) 0.8, Eos # (Auto) 0.1, Baso # (Auto) 0.0 04/21/20 18:00: Sodium 135 L, Potassium 3.5, Chloride 98, Carbon Dioxide 28, Anion Gap 12.5, BUN 19, Creatinine 1.30 H, Estimated Creat Clear 67, Estimated GFR 58 L, Est GFR ( Amer) 70, Glucose 111 H, Calcium 9.8, Troponin I < 0.01 04/21/20 20:49: Troponin I < 0.01 Orders (Tests/Meds): ED MEDICATIONS Discontinued Medications Generic Name Dose Route Start Last Admin Trade Name Freq PRN Reason Stop Dose Admin Aspirin 324 mg 04/21/20 18:03 04/21/20 18:04 Aspirin 81mg Chewable Tablet PO 04/21/20 18:04 324 mg ONCE ONE Administration Ketorolac Tromethamine 15 mg 12/23/20 18:48 04/21/20 18:53 Ketorolac 30mg/Ml Vial IV 04/21/20 18:49 15 mg ONCE ONE Administration Nitroglycerin 0.4 mg 04/21/20 18:03
[2020-04-21 18:29] LABS: Troponin I < 0.01 ng/ml (0.00-0.034)
[2020-04-21 18:30] VITALS: BP 117/75; PULSE 65; RESP 20; O2SAT 97
[2020-04-21 18:35] LABS: Basophils % 0.3 % (0.1-2.0); Eosinophils # 0.1 K/mm3 (0.0-0.4); Hematocrit 43.7 % (42.0-52.0); Hemoglobin 14.5 g/dL (14.1-18.0); Lymphocytes # 3.2 K/mm3 (0.7-4.5); Lymphocytes % 28.6 % (10-50); Mean Corpuscular HGB Conc 33.2 g/dL (31.8-35.4); Mean Corpuscular Hemoglobin 29.5 pg (27.0-31.2); Mean Corpuscular Volume 88.6 fl (80-94); Mean Platelet Volume 7.6 fl (7.4-10.4); Monocytes # 0.8 K/mm3 (0.1-1.0); Monocytes % 6.9 % (1.7-9.3); Neutrophils # 7.1 K/mm3 (1.8-7.8); Neutrophils % 63.2 % (37.0-80.0); Platelet Count 299 K/mm3 (142-424); Red Blood Count 4.94 M/mm3 (4.60-6.20); Red Cell Distribution Width 14.8 % (11.5-17.5); White Blood Count 11.1 K/mm3 (4.8-10.8)
[2020-04-21 19:05] VITALS: BP 125/81; PULSE 64; RESP 16; O2SAT 94
[2020-04-21 21:33] LABS: Troponin I < 0.01 ng/ml (0.00-0.034)
--- NOTE | 2020-04-21 21:37 | PC.NURSE ---
DANETTE HINDS on phone with Andra
[2020-04-21 21:45] VITALS: BP 127/83; PULSE 76; RESP 19; TEMP 36.6; O2SAT 99
== END 2020-04-21 21:50 | disposition home or self-care (01) ==
PROVIDERS: Emergency Provider Emergency Medicine; PCP Emergency Medicine
DX: R07.89 Other chest pain (principal); I10 Essential (primary) hypertension; E78.5 Hyperlipidemia, unspecified; Z87.891 Personal history of nicotine dependence; Z87.442 Personal history of urinary calculi; Z79.899 Other long term (current) drug therapy
CPT/HCPCS: 71045; 80048; 84484; 85025; 93005; 96374; 99283

== ENCOUNTER → 2020-05-06 06:45 | Outpatient (CLI) | payer MEDICARE, MEDICAID, SELFPAY ==
--- NOTE | 2020-05-06 06:52 | CA_ITS ---
APPROVED REPORT EXAM: Comprehensive 2D, Doppler, and color-flow Echocardiogram Dairy Nutritionist: Gale Moya RVT Ht: 5 ft 10 in Wt: 154lbs BSA: 1.87 BP: 111/74 mmHg Indications: CP,CAD,OLGUIN,EX SMOKER,TIA 2D Dimensions LVOT 1.69 cm (M/F) 1.5-2.5 M-Mode Dimensions RVDd 2.92 cm (0.9-2.6) LA Diam 3.82 cm (1.9-4.0) LVDd 5.30 cm (3.5-5.7) Ao Diam 2.67 cm (2.0-3.7) LVDs 3.56 cm (3.5-5.7) IVSd 0.60 cm (0.6-1.1) PWd 0.30 cm (0.6-1.1) EF (Teich) 60.80% FS 32.80% EDV (Teich) 135.30 mL ESV (Teich) 53.00 mL LV Diastology E Decel Time 217.00 (160-240 msec) E/A Ratio 1.1 MED E' 9.00 (< 7 cm/sec) E'/MED E' Ratio 8.20 (>14) LAT E' 18.50 (<10 cm/sec) E/LAT E' Ratio 3.99 (>14) Mitral Valve MV E Max Bert. 74.00 (40-130 cm/s) MV A Velocity 67.00 (40-130 cm/s) E/A Ratio 1.10 MV Decel. Time 217.00 (160-240 ms) MV PHT 63.00 ms Pulmonary Valve PV Peak Velocity 83.00 (50-150 cm/s) Tricuspid Valve TR P. Velocity 264.00 cm/s RAP Estimate 10.00 mmHg RVSP 38.00 mmHg Left Ventricle Left atrium is normal size, left ventricle is normal size, there is no concentric left ventricular hypertrophy, visually estimated ejection fraction 55% with no regional wall motion abnormality, diastolic parameters are within normal range. Right Ventricle Right atrium is normal size, right ventricle is qualitatively mildly enlarged with normal contractility. Aortic Valve Aortic valve is minimally thickened and fibrosed, there is no aortic stenosis or aortic insufficiency. Mitral Valve Mitral valve is grossly normal, there is trace mitral regurgitation. Tricuspid Valve Tricuspid valve is grossly normal, there is trace tricuspid regurgitation, tricuspid regurgitation jet velocity is inadequate for calculation of the right ventricular systolic pressure. Pulmonic Valve Pulmonic valve is poorly visualized. Great Vessels Aortic root is normal size. Pericardium No significant pericardial effusion noted. Conclusion 1. Normal left ventricular size, preserved left ventricular systolic function, visually estimated ejection fraction 55% with no regional wall motion abnormality, diastolic parameters are within normal range. 2. Qualitatively mildly enlarged right ventricle with normal contractility. 3. No significant pericardial effusion noted. Electronically signed by : Pancho Roberson, 05/06/2020 14:49:43
== END ==
PROVIDERS: PCP Emergency Medicine; Visit Provider Nurse Practitioner Family
DX: E78.5 Hyperlipidemia, unspecified (principal); G45.9 Transient cerebral ischemic attack, unspecified; I10 Essential (primary) hypertension; I25.118 Atherosclerotic heart disease of native coronary artery with other forms of angina pectoris; M54.12 Radiculopathy, cervical region; R06.02 Shortness of breath; R07.89 Other chest pain
CPT/HCPCS: 93306

== ENCOUNTER 2020-05-17 13:48 | Day surgery (SDC) | payer MEDICARE, MEDICAID, SELFPAY ==
[2020-05-17 13:59] VITALS: BP 128/67; PULSE 64; RESP 20; TEMP 37; O2SAT 99; BMI 22.8
[2020-05-17 14:11] VITALS: BP 123/68; PULSE 69; RESP 18; O2SAT 98
--- NOTE | 2020-05-17 14:20 | P.PCN_ITS ---
- Procedure Date: 05/17/20 Time: 14:30 Anesthesiologist:: Yuridia Alexander APRN Complications:: None Pre-procedure Diagnosis:: Degenerative disc disease lumbar spine lumbar radiculopathy, degenerative disc disease cervical spine cervical radiculopathy Post-procedure Diagnosis:: Same Indications for Procedure:: She is a pleasant 54-year-old white male who presents today for intrathecal pain pump refill and reprogram. We will are going to give him a slight increase today. [facility] #[id number] reviewed and appropriate. He is working with a therapist to get his anxiety under control. He rates his pain today 4 out of 10. Procedure Details:: Informed consent was obtained and the risk and benefits of the procedure were explained to the patient. The patient was taken to the procedure room where noninvasive monitoring was placed including noninvasive blood pressure cuff and pulse oximeter. Patient's pump was interrogated. The area over the pump was cl eansed with chlorhexidine as a cleansing solution. In sterile fashion the pump was accessed with a 22-gauge needle. Approximately 7 mL's were removed of the pump solution and discarded appropriately. The pump was then refilled with 20 mL's of morphine 5 mg/mL. The needle was withdrawn and a bandage was placed over the puncture site. The infusion rate was reprogrammed to 0.2 mg every 2 hours. The patient tolerated the procedure well. Plan and Disposition:: Follow-up with the patient at his next intrathecal pain pump refill and reprogram he has been instructed to call the office if he has any issues prior to his next appointment. Dr. Rodriguez has reviewed this note and agrees with this plan of care. This note was dictated using voice recognition software and may contain errors or omissions
[2020-05-17 14:25] VITALS: BP 125/69; PULSE 65; RESP 18; O2SAT 98
[2020-05-17 14:36] VITALS: BP 128/74; PULSE 68; RESP 20; O2SAT 99
== END 2020-05-17 14:37 | disposition home or self-care (01) ==
LOC: SC.PAINP 13:50
PROVIDERS: PCP Emergency Medicine; Visit Provider Clinical Nurse Specialist Family Health
DX: M51.16 Intervertebral disc disorders with radiculopathy, lumbar region (principal); M50.10 Cervical disc disorder with radiculopathy, unspecified cervical region; Z45.1 Encounter for adjustment and management of infusion pump; Z79.891 Long term (current) use of opiate analgesic; I25.10 Atherosclerotic heart disease of native coronary artery without angina pectoris; E78.5 Hyperlipidemia, unspecified; I10 Essential (primary) hypertension; F41.9 Anxiety disorder, unspecified; F32.9 Major depressive disorder, single episode, unspecified; Z86.73 Personal history of transient ischemic attack (TIA), and cerebral infarction without residual deficits; Z79.82 Long term (current) use of aspirin; Z79.899 Other long term (current) drug therapy
CPT/HCPCS: 95991

== ENCOUNTER 2020-06-14 13:13 | Day surgery (SDC) | payer MEDICARE, MEDICAID, SELFPAY ==
[2020-06-14 13:22] VITALS: BP 115/64; BP 116/66; PULSE 65; PULSE 77; RESP 18; O2SAT 98; O2SAT 99
[2020-06-14 13:30] VITALS: BP 103/63; PULSE 69; RESP 18; TEMP 36.6; O2SAT 98; BMI 21.5
--- NOTE | 2020-06-14 13:41 | HMH.PMPROC ---
- Procedure Date: 06/14/20 Time: 13:49 Anesthesiologist:: Yuridia Alexander APRN Complications:: None Pre-procedure Diagnosis:: degenerative Disc disease lumbar spine lumbar radiculopathy degenerative disc disease cervical spine with cervical radiculopathy Post-procedure Diagnosis:: Same Indications for Procedure:: Patient is a pleasant 54-year-old white male who presents today for intrathecal pain pump refill and reprogram. Patient rates his pain today an 8 out of 10 he has been working with his therapist and getting his anxiety under control. Patient is doing well with his intrathecal infusion of 0.2 mg every 2 hours. We will increase that today. Patient I also discussed adding bupivacaine at his next appointment he is agreeable. Patient stated that after his last increase he did very well however he is recently had an increase in his pain. We will increase him today. Procedure Details:: Informed consent was obtained and the risk and benefits of the procedure were explained to the patient. The patient was taken to the procedure room where noninvasive monitoring was placed including noninvasive blood pressure cuff and pulse oximeter. Patient's pump was interrogated. The area over the pump was cleansed with chlorhexidine as a cleansing solution. In sterile fashion the pump was accessed with a 22-gauge needle. Approximately 6 mL's were removed of the pump solution and discarded appropriately. The pump was then refilled with 20 mL's of mL of morphine 10 mg/mL. The needle was withdrawn and a bandage was placed over the puncture site. The infusion rate was reprogrammed to 0.25 mg every 2 hours. The patient tolerated the procedure well. Plan and Disposition:: We will add bupivacaine at his next intrathecal pain pump refill and reprogram he has been instructed to call the office if he has any issues prior to his next appointment. Dr. Rodriguez has reviewed this note and agrees with this plan of care. This note was dictated using voice recognition software and may contain errors or omissions
[2020-06-14 13:53] VITALS: BP 109/67; PULSE 59; RESP 20; O2SAT 98
== END 2020-06-14 13:54 | disposition home or self-care (01) ==
LOC: SC.PAINP 13:16
PROVIDERS: PCP Emergency Medicine; Visit Provider Clinical Nurse Specialist Family Health
DX: M51.16 Intervertebral disc disorders with radiculopathy, lumbar region (principal); M50.10 Cervical disc disorder with radiculopathy, unspecified cervical region; I25.10 Atherosclerotic heart disease of native coronary artery without angina pectoris; E78.5 Hyperlipidemia, unspecified; Z86.73 Personal history of transient ischemic attack (TIA), and cerebral infarction without residual deficits; I10 Essential (primary) hypertension; Z95.810 Presence of automatic (implantable) cardiac defibrillator; Z87.442 Personal history of urinary calculi
CPT/HCPCS: 62370

== ENCOUNTER → 2020-07-05 10:25 | Outpatient (POV) | payer MEDICARE, MEDICAID, SELFPAY ==
[2020-07-05 10:38] VITALS: BP 125/88; PULSE 74; RESP 18; O2SAT 98; BMI 22.9
--- NOTE | 2020-07-05 10:56 | HMH.PMPROC ---
- Procedure Date: 07/05/20 Time: 10:56 Anesthesiologist:: Yuridia Alexander APRN Complications:: None Pre-procedure Diagnosis:: Degenerative disc disease lumbar spine lumbar radiculopathy symptoms, degenerative disc disease cervical spine cervical radiculopathy Post-procedure Diagnosis:: Same Indications for Procedure:: Patient is a 54-year-old male white male who presents today for follow-up. Patient has intrathecal pain pump with a morphine infusion of 3 mg/day. Patient rates his pain a 10 out of 10 and states that it is not working for him. Patient has had 6 inappropriate drug screens with counseling in regards to marijuana use. Patient will be turned down to 1.5 mg of morphine today per Dr. Olea instructions. Patient is tearful today stating that he is getting no relief he needs something to help relieve his pain I discussed with him that we have exhausted all options that we can offer him. We will decrease his pain pump to 0 at his next visit. We will have it removed. We will also send him to neurosurgery for consultation at this time there is nothing else we can offer him. Procedure Details:: Informed consent was obtained and the risk and benefits of the procedure were explained to the patient. The patient was taken to the procedure room where noninvasive monitoring was placed including noninvasive blood pressure cuff and pulse oximeter. Patient's pump was interrogated and reprogrammed. The infusion rate was decreased to 1.5 mg of morphine a day. The patient tolerated the procedure well. Plan and Disposition:: We will see him back in 1 week and continue to decrease him. We will send him to neurosurgery for consult again we have exhausted all potential treatment options for this patient. If he has any questions he has been instructed to call the office. Dr. Rodriguez has reviewed this note and agrees with this plan of care. This note was dictated using voice recognition software and may contain errors or omissions
== END ==
PROVIDERS: PCP Emergency Medicine; Visit Provider Clinical Nurse Specialist Family Health
DX: M51.16 Intervertebral disc disorders with radiculopathy, lumbar region (principal); M50.10 Cervical disc disorder with radiculopathy, unspecified cervical region; Z45.1 Encounter for adjustment and management of infusion pump
CPT/HCPCS: 62368

== ENCOUNTER 2020-10-11 08:40 | Emergency (ER) | payer MEDICARE, MEDICAID, SELFPAY ==
[2020-10-11] VITALS (7 sets, daily range): BP systolic 142–174; BP diastolic 103–113; PULSE 57–78; RESP 16–27; TEMP 36.6; O2SAT 97–100; BMI 23.6
--- NOTE | 2020-10-11 08:39 | ECG_ITS ---
APPROVED REPORT Exam: Resting ECG HR:69 bpm ECG Measurements Heart Rate 69 AXES SC 126 P 62 QRSd 78 QRS 37 QT 408 T 62 QTc 437 Conclusion Normal sinus rhythm Biatrial enlargement ST depression, consider subendocardial injury or digitalis effect Abnormal ECG Electronically signed by : Mina Currie, 10/12/2020 08:20:34
--- NOTE | 2020-10-11 08:43 | XR_ITS ---
PROCEDURE: XR CHEST PORTABLE CLINICAL HISTORY: Chest Pain COMPARISON: 04/21/2020 FINDINGS: The cardiomediastinal silhouette and pulmonary vascularity are within normal limits. The lungs are clear without infiltrates, suspicious nodules, or pleural effusions. No acute bony abnormalities. IMPRESSION: No acute findings. Dictated by: Lawson Roland 10/11/2020 09:06 Lawson Roland in [facility] 10/11/2020 09:06
[2020-10-11 09:11] LABS: Basophils # 0.1 K/mm3 (0-0.2); Basophils % 0.3 % (0.1-2.0); Eosinophils % 0.2 % (0.1-12.0); Hematocrit 48.4 % (42.0-52.0); Hemoglobin 17.3 g/dL (14.1-18.0); Lymphocytes % 27.4 % (10-50); Mean Corpuscular HGB Conc 35.7 g/dL (31.8-35.4); Mean Corpuscular Hemoglobin 29.9 pg (27.0-31.2); Mean Corpuscular Volume 83.7 fl (80-94); Mean Platelet Volume 7.8 fl (7.4-10.4); Monocytes # 1.2 K/mm3 (0.1-1.0); Monocytes % 6.4 % (1.7-9.3); Neutrophils % 65.7 % (37.0-80.0); Platelet Count 247 K/mm3 (142-424); Red Blood Count 5.78 M/mm3 (4.60-6.20); Red Cell Distribution Width 14.6 % (11.5-17.5); White Blood Count 18.3 K/mm3 (4.8-10.8)
[2020-10-11 09:15] LABS: Lipase 560 U/L (23-300)
[2020-10-11 09:16] LABS: Anion Gap 18.5 mEq/L (5-15); Blood Urea Nitrogen 58 mg/dl (9-20); Calcium 11.1 mg/dl (8.4-10.2); Carbon Dioxide 24 mmol/L (22.0-30.0); Chloride 98 mmol/L (98-107); Creatinine Clearance Estimated 41 mL/min (50-200); Estimated Glomerular Filt Rate 33 ml/min (>60); GFR (African American) 40 ML/MIN (>60); Glucose 134 mg/dl (74-100); Potassium 3.5 mmoL/L (3.5-5.1); Sodium 137 mmol/L (136-145)
[2020-10-11 09:19] LABS: MANUAL DIFFERENTIAL MANUAL DIFFERENTIAL (MANUAL DIFF)
[2020-10-11 09:28] LABS: Troponin I 0.19 ng/ml (0.00-0.034)
[2020-10-11 09:40] LABS: Eosinophils % 1 % (0-3); Lymphocytes % 35 % (10-50); Monocytes % 5 % (2-9); Neutrophils % 59 % (42-76); Platelet Estimate Normal; RBC Morphology Normal; Total Cells Counted 100
--- NOTE | 2020-10-11 10:08 | CT_ITS ---
PROCEDURE: CT ABDOMEN PELVIS WO CON CLINICAL INDICATION: abd pain COMPARISON: CT ABDPELWO CT abdomen pelvis wo con from 09/16/2018 TECHNIQUE: Axial images obtained with sagittal and coronal reformats. All CT scans at the facility use one or more dose reduction, viz: automated exposure control, ma/kV adjustment per patient size (including targeted exams where dose is matched to indication, i.e. head), or iterative reconstruction technique. FINDINGS: Lung bases are normal. No focal hepatic or splenic lesion. Few probable tiny gallstones again noted. A few small left renal cortical cysts are unchanged. Right kidney is normal. Some calcification of the abdominal aorta without aneurysm. Pancreas and adrenal glands are normal. No upper abdominal lymphadenopathy. No distended large or small bowel or bowel wall thickening. No free intraperitoneal air or fluid. The appendix is normal. Small fat containing right inguinal ring again noted. Extensive calcification of the prostate gland is unchanged. Bladder is normal. No enlarged iliac or inguinal chain lymph nodes. Some diffuse degenerative changes of the lumbar spine are present. No acute bony abnormality. IMPRESSION: No acute abnormality of the abdomen or pelvis. A few small left renal cortical cysts unchanged. Probable minimal cholelithiasis. No free intraperitoneal air or fluid. Small unchanged fat containing right inguinal ring without bowel within. Dictated by: Lawson Roland 10/11/2020 11:06 Lawson Roland in [facility] 10/11/2020 11:06
--- NOTE | 2020-10-11 10:11 | HMH.EDGENADL ---
ED Disposition Clinical Impression: Degenerative disc disease, cervical, Acute kidney injury CAD (coronary artery disease) Qualifiers: Coronary Disease-Associated Artery/Lesion type: [place] artery [place] vs. transplanted heart: [place] heart Associated angina: with other forms of angina Qualified Code(s): I25.118 - Atherosclerotic heart disease of [place] coronary artery with other forms of angina pectoris Chest pain Qualifiers: Chest pain type: other chest pain Qualified Code(s): R07.89 - Other chest pain Pancreatitis Qualifiers: Chronicity: acute Pancreatitis type: other Acute pancreatitis complication: unspecified Qualified Code(s): K85.80 - Other acute pancreatitis without necrosis or infection Disposition: Left Against Medical Advice Condition on Discharge: Fair Instructions: DI for Chest Pain Referrals: Provider,MD Dereck [Primary Care Provider] - Zac Silverman MD [Staff Physician] - - Critical Care Critical Care Time: No Attestation: On 10/11/20, the high probability of a clinically significant, sudden or life threatening deterioration of the following system(s) required my full and direct attention, intervention and personal management. The time I documented below is in addition to time spent performing reported procedures but includes the following listed in this critical care notation. Medical Decision Making - Medical Records Medical records reviewed: Yes: I reviewed the patient's medical records. - Anurag Inquiry Pt receiving controlled substance: No Vital Signs: 10/11/20 08:41 10/11/20 09:05 10/11/20 09:58 Pulse Rate 68 59 L Pulse Rate [Left Radial] 64 Respiratory Rate 16 19 Blood Pressure 142/103 H 167/110 H Blood Pressure [Right Arm] 142/103 H Blood Pressure Mean [Right Arm] 116 Blood Pressure Source Automatic Cuff Automatic Cuff Blood Pressure Source [Right Arm] Automatic Cuff Blood Pressure Position Sitting Sitting Blood Pressure Position [Right Arm] Sitting 02 Sat by Pulse Oximetry 97 97 99 Oxygen Delivery Method Room Air Room Air Room Air - Lab Data Lab Results 10/11/20 08:55: WBC 18.3 H, RBC 5.78, Hgb 17.3, Hct 48.4, MCV 83.7, MCH 29.9, MCHC 35.7 H, RDW 14.6, Plt Count 247, MPV 7.8, Neut % (Auto) 65.7, Lymph % (Auto) 27.4, [place] % (Auto) 6.4, Eos % (Auto) 0.2, Baso % (Auto) 0.3, Neut # (Auto) 12.0 H, Lymph # (Auto) 5.0 H, [place] # (Auto) 1.2 H, Eos # (Auto) 0.0, Baso # (Auto) 0.1, Total Counted 100, Neutrophils % (Manual) 59, Lymphocytes % (Manual) 35, Monocytes % (Manual) 5, Eosinophils % (Manual) 1, Platelet Estimate Normal, RBC Morphology Normal 10/11/20 08:55: Sodium 137, Potassium 3.5, Chloride 98, Carbon Dioxide 24, Anion Gap 18.5 H, BUN 58 H, Creatinine 2.10 H, Estimated Creat Clear 41, Estimated GFR 33 L, Est GFR ( Amer) 40 L, Glucose 134 H, Calcium 11.1 H, Troponin I 0.19 H 10/11/20 08:55: Lipase 560 H 10/11/20 08:55: Total Bilirubin 1.1, Direct Bilirubin 0.6 H, Conjugated Bilirubin 0.0, Indirect Bilirubin 0.5, Unconjugated Bilirubin 0.6, AST 44, ALT 23, Alkaline Phosphatase 83, NT-Pro-B Natriuret Pep 25408 H, Total Protein 8.7 H, Albumin 5.6 H Result diagrams: 10/11/20 08:55 10/11/20 08:55 Orders (Tests/Meds): ED MEDICATIONS Generic Name Dose Route Start Last Admin Trade Name Freq PRN Reason Stop Dose Admin Sodium Chloride 8 ml 10/11/20 08:57 Sodium Chloride 0.9% 10ml Vial IV 11/10/20 08:56 NEEDED PRN dilute pepcid Discontinued Medications Generic Name Dose Route Start Last Admin Trade Name Freq PRN Reason Stop Dose Admin Diphenhydramine HCl 25 mg 10/11/20 08:57 10/11/20 09:16 Diphenhydramine 50mg/Ml Vial IV 10/11/20 08:58 25 mg ONCE ONE Administration Famotidine 20 mg 10/11/20 08:57 10/11/20 09:16 Famotidine 20mg/2ml Vial IV 10/11/20 08:58 20 mg ONCE ONE Administration Sodium Chloride 1,000 mls @ 999 mls/hr 10/11/20 10:15 10/11/20 10:20 Sod Chlor 0.9% 1000ml Bag IV 10/11/20 11:1
--- NOTE | 2020-10-11 10:16 | PC.NURSE ---
Talking to cardiology about pt
[2020-10-11 10:19] LABS: Alanine Aminotransferase 23 U/L (12-78); Albumin Level 5.6 g/dl (3.5-5.0); Alkaline Phosphatase 83 U/L (38-126); Aspartate Amino Transferase 44 U/L (17-59); Bilirubin,Direct 0.6 mg/dl (0.0-0.4); Bilirubin,Indirect 0.5 mg/dL (0.0-0.9); Bilirubin,Total 1.1 mg/dl (0.2-1.3); Bilirubin,Unconjugated 0.6 mg/dL (0.0-1.1); Total Protein,Serum 8.7 g/dl (6.3-8.2)
[2020-10-11 10:29] LABS: NT Pro Brain Natriuretic Pep. 20000 pg/mL (0-125)
--- NOTE | 2020-10-11 10:40 | PC.NURSE ---
Pt to rad
--- NOTE | 2020-10-11 11:40 | PC.NURSE ---
BETTY Ty with cardiology at [facility]
--- NOTE | 2020-10-11 11:44 | PC.NURSE ---
Pt speaking with Cardio BETTY and he is declining to have a heart cath at this time. He states that he will follow up in their office. Pt advised of the risks by cardio staff.
--- NOTE | 2020-10-11 11:51 | HMH.CNCARD ---
History of Present Illness Consult date: 10/11/20 Requesting physician: Romie Marin Consult reason: chest pain Chief complaint: chest pain and abd pain History of present illness: 55-year-old male presented to [facility] ED with chest pain and abdominal pain. Patient states around 2 AM this a.m. he began sweating and having extreme mid to lower abdominal pain. Patient states when he got out of bed he did vomit. Patient states he has vomited at least 3-4 times. Patient is very vague in describing his chest pain. Patient states at times it feels like a squeezing feeling in chest. Patient mostly complains of back and neck pain. Patient states he does have history of a fracture in his back and neck in which he required a pain stimulator. Patient complained of shortness of breath upon admission to ED. Patient denies chest pain, tightness or pressure at this time. Patient denies shortness of breath. No swelling noted of the lower extremities. Patient states he just cannot get comfortable due to his back pain. Patient is noted to be hypertensive. Patient states his blood pressures have been within normal at home. Patient states he sees his PCP on a regular basis. Patient denies palpitations or dizziness. EKG revealed normal sinus rhythm, ST depression, abnormal ECG with a heart rate of 69 bpm. Lab work revealed troponin 0.19 (first troponin). Patient did undergo CT scan of the abdominal area. This was due to his abdominal pain and vomiting. Waiting official CT results. Patient does follow-up with his cardiology office. Last appointment was in April 2020. Patient was advised at that time to undergo stress testing due to abnormal EKG and chest pain that he was experiencing at that time. Patient refused. Patient was offered heart catheterization at that time also. Patient refused. Echocardiogram from April 2020 revealed EF 55% with no wall regional motion abnormality. Last heart catheterization was in June 2018 which revealed mild disease in the mid LAD with severe stenosis in the inferior branch of the large bifurcating first diagonal artery. It was strongly recommended for patient to be on maximal antianginals and if patient continued to have chest discomfort would consider stenting of the large first nominal artery. Patient does have history of hypertension and hyperlipidemia. Patient is currently on a statin therapy. Echo-Conclusion ) 1. Normal left ventricular size, preserved left ventricular systolic function, visually estimated ejection fraction 55% with no regional wall motion abnormality, diastolic parameters are within normal range. 2. Qualitatively mildly enlarged right ventricle with normal contractility. 3. No significant pericardial effusion noted. Discussed plan of care with Dr. Silverman. Orders were received from Dr. Silverman. Discussed with pt the risk and benefits of undergoing left heart catheterization due to chest pain and abnormal EKG. Pt declined heart catheterization at this time. Pt stated, I have underwent cath before and it did not show anything . Pt stated that he is mostly concerned about this back and neck pain more than this chest pain. Pt stated that he will follow up in the cardiology office when he feels better to discuss a heart catheterization at that time. Stressed with pt the importance of him undergoing a heart cath today. Pt verbalized understanding and stated that he will notify the clinic when he is ready to have a heart cath. Will prescribe pt, Imdur 30mg daily for chest pain. Pt does need to continue his home medications. Please notify cardiology of any changes in pt's condition. Thank you for letting Cardiology to participate in the care of this pt. [facility] History I have reviewed the patient's past medical history: Yes Medical History: Reports:: Coronary Artery Disease, Cerebrovascular Accident, Hyperlipidemia, Hypertension, Kidney Stones, Transient Ischemic Attacks (TIA)
--- NOTE | 2020-10-11 12:01 | PC.NURSE ---
spoke with pt, he has decided to leave A
[2020-10-11 12:05] LABS: Troponin I 0.18 ng/ml (0.00-0.034)
--- NOTE | 2020-10-11 12:20 | PC.NURSE ---
PT REFUSES ADMISSION. PT SIGNED AMA
== END 2020-10-11 12:24 | disposition left against medical advice (07) ==
PROVIDERS: Emergency Provider Emergency Medicine
DX: N17.9 Acute kidney failure, unspecified (principal); I25.118 Atherosclerotic heart disease of native coronary artery with other forms of angina pectoris; K85.80 Other acute pancreatitis without necrosis or infection; I10 Essential (primary) hypertension; E78.5 Hyperlipidemia, unspecified; F17.210 Nicotine dependence, cigarettes, uncomplicated
CPT/HCPCS: 71045; 74176; 80048; 80076; 83690; 83880; 84484; 85007; 85025; 93005; 96365; 96375; 99283; J2405

== ENCOUNTER 2021-03-20 07:23 | Inpatient (IN) | payer MEDICARE, MEDICAID, SELFPAY ==
[2021-03-20] VITALS (8 sets, daily range): BP systolic 106–147; BP diastolic 71–91; PULSE 50–109; RESP 18–22; TEMP 36.7–37.1; O2SAT 96–98; BMI 24.3; BMI 22.6
[2021-03-20 07:46] LABS: Influenza A, PCR Not Detected (NotDetected); Influenza B, PCR Not Detected (NotDetected)
[2021-03-20 07:51] LABS: Basophils # 0.1 K/mm3 (0-0.2); Basophils % 1.3 % (0.1-2.0); Eosinophils % 0.1 % (0.1-12.0); Hemoglobin 17.1 g/dL (14.1-18.0); Lymphocytes # 1.7 K/mm3 (0.7-4.5); Lymphocytes % 19.4 % (10-50); Mean Corpuscular HGB Conc 35.5 g/dL (31.8-35.4); Mean Corpuscular Hemoglobin 30.2 pg (27.0-31.2); Mean Corpuscular Volume 84.9 fl (80-94); Mean Platelet Volume 9.5 fl (7.4-10.4); Monocytes # 0.6 K/mm3 (0.1-1.0); Monocytes % 7.3 % (1.7-9.3); Neutrophils # 6.2 K/mm3 (1.8-7.8); Neutrophils % 71.8 % (37.0-80.0); Platelet Count 172 K/mm3 (142-424); Red Blood Count 5.65 M/mm3 (4.60-6.20); Red Cell Distribution Width 14.7 % (11.5-17.5); White Blood Count 8.6 K/mm3 (4.8-10.8)
[2021-03-20 07:58] LABS: Alanine Aminotransferase 22 U/L (12-78); Albumin Level 4.5 g/dl (3.5-5.0); Albumin/Globulin Ratio 1.4 (1.1-1.8); Alkaline Phosphatase 77 U/L (38-126); Anion Gap 19.6 mEq/L (5-15); Aspartate Amino Transferase 41 U/L (17-59); Bilirubin,Total 0.4 mg/dl (0.2-1.3); Blood Urea Nitrogen 78 mg/dl (9-20); Calcium 8.9 mg/dl (8.4-10.2); Carbon Dioxide 21 mmol/L (22.0-30.0); Chloride 95 mmol/L (98-107); Creatinine Clearance Estimated 29 mL/min (50-200); Estimated Glomerular Filt Rate 21 ml/min (>60); GFR (African American) 26 ML/MIN (>60); Globulin 3.2 g/dL (1.3-3.2); Glucose 103 mg/dl (74-100); Potassium 3.6 mmoL/L (3.5-5.1); Sodium 132 mmol/L (136-145); Total Protein,Serum 7.7 g/dl (6.3-8.2)
[2021-03-20 08:09] LABS: Coronavirus 19, PCR Detected (NotDetected)
--- NOTE | 2021-03-20 08:15 | HMH.EDGENADL ---
ED Disposition Clinical Impression: Vomiting and diarrhea, COVID-19 virus infection, BETO (acute kidney injury) CKD (chronic kidney disease) Qualifiers: Chronic kidney disease stage: unspecified stage Qualified Code(s): N18.9 - Chronic kidney disease, unspecified Pneumonia Qualifiers: Pneumonia type: due to unspecified organism Laterality: right Lung location: lower lobe of lung Qualified Code(s): J18.9 - Pneumonia, unspecified organism Disposition: Admitted as Observation Condition on Discharge: Fair - Critical Care Critical Care Time: No Attestation: On 03/20/21, the high probability of a clinically significant, sudden or life threatening deterioration of the following system(s) required my full and direct attention, intervention and personal management. The time I documented below is in addition to time spent performing reported procedures but includes the following listed in this critical care notation. Medical Decision Making - Anurag Inquiry Pt receiving controlled substance: Yes (Requests medication for pain) Anurag was queried for this patient: No Reason not queried -: Anurag login issues Risks and benefits of using a controlled substance: were not discussed with pt by me Vital Signs: 03/20/21 07:30 03/20/21 07:31 03/20/21 09:00 Temperature 98.2 F Temperature Source Oral Pulse Rate 95 H 75 Pulse Rate [Right Radial] 109 H Respiratory Rate 20 20 22 Blood Pressure 114/87 113/77 Blood Pressure [Right Arm] 147/91 H Blood Pressure Mean 96 87 Blood Pressure Mean [Right Arm] 109 Blood Pressure Source [Right Arm] Automatic Cuff Blood Pressure Position [Right Arm] Sitting 02 Sat by Pulse Oximetry 98 97 97 Oxygen Delivery Method Room Air - Lab Data Lab Results 03/20/21 07:39: WBC 8.6, RBC 5.65, Hgb 17.1, Hct 48.0, MCV 84.9, MCH 30.2, MCHC 35.5 H, RDW 14.7, Plt Count 172, MPV 9.5, Neut % (Auto) 71.8, Lymph % (Auto) 19.4, [place] % (Auto) 7.3, Eos % (Auto) 0.1, Baso % (Auto) 1.3, Neut # (Auto) 6.2, Lymph # (Auto) 1.7, [place] # (Auto) 0.6, Eos # (Auto) 0.0, Baso # (Auto) 0.1 03/20/21 07:39: Sodium 132 L, Potassium 3.6, Chloride 95 L, Carbon Dioxide 21 L, Anion Gap 19.6 H, BUN 78 H, Creatinine 3.10 H, Estimated Creat Clear 29, Estimated GFR 21 L, Est GFR ( Amer) 26 L, Glucose 103 H, Calcium 8.9, Total Bilirubin 0.4, AST 41, ALT 22, Alkaline Phosphatase 77, Total Protein 7.7, Albumin 4.5, Globulin 3.2, Albumin/Globulin Ratio 1.4 03/20/21 07:39: SARS-CoV-2 (PCR) Detected A, Influenza A Untype (PCR) Not detected, Influenza Type B (PCR) Not detected Result diagrams: 03/20/21 07:39 03/20/21 07:39 Orders (Tests/Meds): ED MEDICATIONS Generic Name Dose Route Start Last Admin Trade Name Freq PRN Reason Stop Dose Admin Acetaminophen 650 mg 03/20/21 09:22 Acetaminophen 325mg Tab PO 04/19/21 09:21 Q6HP PRN Mild pain,fever,headache Ascorbic Acid 500 mg 03/20/21 13:00 Ascorbic Acid 500mg Tab PO 04/19/21 12:59 QID MICHAEL Dexamethasone Sodium Phosphate 6 mg 03/20/21 09:30 Dexamethasone 4mg/Ml 1ml Vial IV 04/19/21 09:29 DAILY MICHAEL Ergocalciferol 50,000 unit 03/20/21 09:00 Ergocalciferol 50,000 Units (1.25mg) Capsule PO 04/19/21 08:59 WEEKLY MICHAEL Famotidine 20 mg 03/20/21 09:25 Famotidine 20mg Tablet PO 04/19/21 09:24 DAILY MICHAEL Sodium Chloride 1,000 mls @ 999 mls/hr 03/20/21 09:00 03/20/21 08:50 Sod Chlor 0.9% 1000ml Bag IV 03/20/21 10:00 999 mls/hr .Q1H1M MICHAEL Administration Zinc Sulfate 220 mg 03/20/21 09:30 Zinc Sulfate 220mg Capsule PO 04/19/21 09:29 DAILY MICHAEL Discontinued Medications Generic Name Dose Route Start Last Admin Trade Name Freq PRN Reason Stop Dose Admin Sodium Chloride 1,000 mls @ 999 mls/hr 03/20/21 07:45 03/20/21 07:41 Sod Chlor 0.9% 1000ml Bag IV 03/20/21 08:45 999 mls/hr .Q1H1M MICHAEL Administration Morphine Sulfate 4 mg 03/20/21 08:27 03/20/21 08:33 Morphine 4mg/Ml Syri
--- NOTE | 2021-03-20 08:29 | XR_ITS ---
PROCEDURE INFORMATION: Exam: XR Chest Exam date and time: 03/20/2021 8:29 AM Age: 55 years old Clinical indication: Shortness of breath; Additional info: Covid 19 positive- SOB TECHNIQUE: Imaging protocol: XR of the chest. Views: 1 view. COMPARISON: CR XR CHEST PORTABLE 10/11/2020 8:55 AM FINDINGS: Lungs: There appears to be patchy airspace disease right lower lobe suspicious for pneumonia. Pleural spaces: Unremarkable. No pleural effusion. No pneumothorax. Heart/Mediastinum: Unremarkable. No cardiomegaly. Bones/joints: Unremarkable. IMPRESSION: There appears to be patchy airspace disease right lower lobe suspicious for pneumonia.
--- NOTE | 2021-03-20 09:20 | HMH.HP ---
*Admission Date: 03/20/21 *Chief complaint: weakness *History of present illness: this patient presented to the ed with dec po intake over the last few days-pt to ed per pvt car. pt states he hasnt been able to keep anything down since night. pt states he has had n/v/d since . pt also c/o generalized body aches. pt denies abd pain. pt states he has not been around anyone sick recently. 3-day history of vomiting and diarrhea. He has not noted any fever at home. Denies abdominal pain except from soreness from vomiting. States the only cough he has is when he gags from vomiting. Has not noted any blood in stool. He says that the kids next-door have Covid, but he has not seen them in a week. He has not been vaccinated against Covid. No recent travel, hospitalizations, antibiotic. He states his whole body hurts. He has a history of chronic neck and back pain. He has been through pain management. He says he is not on any pain medication right now. He has failed a pain pump. He is requesting pain medication. pt was seen in the ed and has covid-19 and yuli and was admitted for ivf and covid-19 treatment [facility] History I have reviewed the patient's past medical history: Yes Medical History: Reports:: Coronary Artery Disease, Cerebrovascular Accident, Hyperlipidemia, Hypertension, Kidney Stones, Transient Ischemic Attacks (TIA) Denies:: Cancer, Diabetes Mellitus Type 1, Diabetes Mellitus Type 2, Internal Pacemaker, Lung Disease, MRSA, Seizures *Have you ever received a pneumonia vaccine?: No *Have you received a flu vaccine this season?: No Other Medical History: Reports: Other. Denies: Blood Transfusion Reaction Other Surgeries: Yes: No Previous Surgery, Cardiac Catheterization, Cardiac Surgery, Colonoscopy, Other (PAIN PUMP IMPLANT). No: Pacemaker Amputation: No Fractures: Yes (back, neck) - *Social History Smoking Status: Current every day smoker Tobacco Type: cigarettes # Packs/Day (cigarettes): 1 #Yrs smoked (if former smoker): 40 Alcohol Intake: never Alcohol Intake Frequency:: holidays/special occasions only Substance Use Type: marijuana *Occupational Status:: retired Housing: house Household Members: other *Travel in the last 8 weeks: None Family Hx:: Cancer, Coronary Artery Disease Review of Systems - Review of Systems Review of systems:: pertinent systems reviewed and negative unless documented below - Constitutional Denies fever(s) - Eyes Denies change in vision - ENT Denies sore throat - *Cardiovascular Denies chest pain - *Respiratory Reports cough, Denies pain on inspiration - *Gastrointestinal Denies abdominal pain - *Genitourinary Denies blood in urine - *Musculoskeletal Reports back pain, Reports neck pain, Denies joint pain - Integumentary/Breasts Denies rash - *Neurologic Reports radiating pain, Denies localized weakness, Denies headache(s) - Psychiatric Denies confusion Meds Home Medications Medication Instructions Recorded Confirmed Type Aspirin [Low Dose Aspirin EC] 81 mg PO DAILY 03/20/21 03/20/21 History Atorvastatin Calcium [Lipitor 40mg 40 mg PO HS 03/20/21 03/20/21 History Tab] Lisinopril/Hydrochlorothiazide 1 each PO DAILY 03/20/21 03/20/21 History [Lisinopril-Hctz 20-25 mg Tab] bisoproloL fumarate [Bisoprolol 5 mg PO DAILY 03/20/21 03/20/21 History Fumarate] buPROPion HCL [Wellbutrin XL] 150 mg PO DAILY 03/20/21 03/20/21 History Allergies Allergy/AdvReac Type Severity Reaction Status Date / Time No Known Allergies Allergy Verified 02/04/21 13:33 Exam Vital signs and Labs for Last 24 Hours: Temp Pulse Resp BP Pulse Ox 98.2 F 75 22 113/77 97 03/20/21 07:31 03/20/21 09:00 03/20/21 09:00 03/20/21 09:00 03/20/21 09:00 Laboratory Results - last 24 hr 03/20/21 07:39: WBC 8.6, RBC 5.65, Hgb 17.1, Hct 48.0, MCV 84.9, MCH 30.2, MCHC 35.5 H, RDW 14.7, Plt Count 172, MPV 9.5, Neut % (Auto) 71.8, Lymph % (Auto)
--- NOTE | 2021-03-20 09:41 | PC.NURSE ---
called report to tod cannon
--- NOTE | 2021-03-20 09:53 | PC.NURSE ---
Pt arrived to the floor at this time
[2021-03-20 10:13] LABS: Lactic Acid 1.5 mmol/L (0.7-2.1)
--- NOTE | 2021-03-20 15:02 | P.CONPHA_ITS ---
[facility] Pharmacy VTE Monitoring - Patient Demographics Admission date: 03/20/21 Report Date: 03/20/21 Time: 15:02 Allergies/Adverse Reactions: Patient Allergies No Known Allergies Allergy (Verified 02/04/21 13:33) Height: 1.78 m Weight: 71.781 kg Patient Problems: Current Active Problems Acute kidney injury (Acute) Vomiting and diarrhea (Acute) COVID-19 virus infection (Acute) CKD (chronic kidney disease) (Acute) Pneumonia (Acute) - VTE Risk Labs: VTE Related Lab Results Hgb 17.1 g/dL (14.1-18.0) 03/20/21 07:39 Hct 48.0 % (42.0-52.0) 03/20/21 07:39 Plt Count 172 K/mm3 (142-424) 03/20/21 07:39 BUN 78 mg/dl (9-20) H 03/20/21 07:39 Creatinine 3.10 mg/dl (0.66-1.25) H 03/20/21 07:39 Estimated Creat Clear 29 mL/min (50-200) 03/20/21 07:39 VTE Score: 4 VTE Risk Level: Moderate Risk - Prophylaxis Types of VTE Prophylaxis: TEDS Knee High, Pharmacological Location of Applied Device: Refused Pharmacologic Type: Enoxaparin (LOVENOX AND CRISTHIAN HOSE ORDERED)
--- NOTE | 2021-03-20 19:27 | PC.NURSE ---
NEW ADMIT TODAT. HE IS AOX4, ABLE TO MAKE NEEDS KNOWN TO STAFF, DOES NOT REQUIRE O2 SUPPORT. C/O PAIN X1 WAS TREATED WITH MORPHINE PER MAR WITH GOOD EFFECTIVENESS. DENIED N/V/D AFTER ADMIN OF ZOFRAN PER MAR.
--- NOTE | 2021-03-20 22:41 | PC.NURSE ---
noted pt with vomiting after pm medication administration, pt states it is not nausea and more like hiccups, pt stated he gets hiccups and then vomits.
[2021-03-21] VITALS (8 sets, daily range): BP systolic 100–163; BP diastolic 65–88; PULSE 50–68; RESP 15–18; TEMP 36.6–37; O2SAT 97–99; BMI 22.8
--- NOTE | 2021-03-21 04:41 | PC.NURSE ---
pt complains of hiccups through the night with vomiting at times, pt medicated with morphine and zofran for chronic neck and back pain, pt was not able to keep evening meds down and vomited aprox 30 min after administration. VSS, pt remains 98% on room air through the night, noted bradycardia 58-57 asymptomatic and states that is his normal pulse rate at home. No diarrhea noted this shift and pt instructed that a stool sample is needed.
[2021-03-21 07:28] LABS: Alanine Aminotransferase 14 U/L (12-78); Albumin Level 3.4 g/dl (3.5-5.0); Alkaline Phosphatase 58 U/L (38-126); Anion Gap 15.2 mEq/L (5-15); Aspartate Amino Transferase 40 U/L (17-59); Bilirubin,Direct 0.1 mg/dl (0.0-0.4); Bilirubin,Indirect 0.1 mg/dL (0.0-0.9); Bilirubin,Total 0.2 mg/dl (0.2-1.3); Bilirubin,Unconjugated 0.1 mg/dL (0.0-1.1); Blood Urea Nitrogen 59 mg/dl (9-20); Calcium 8.2 mg/dl (8.4-10.2); Carbon Dioxide 18 mmol/L (22.0-30.0); Chloride 108 mmol/L (98-107); Creatinine Clearance Estimated 41 mL/min (50-200); Estimated Glomerular Filt Rate 33 ml/min (>60); GFR (African American) 40 ML/MIN (>60); Glucose 82 mg/dl (74-100); Potassium 4.2 mmoL/L (3.5-5.1); Sodium 137 mmol/L (136-145); Total Protein,Serum 6.1 g/dl (6.3-8.2)
--- NOTE | 2021-03-21 08:47 | HMH.ACPN2 ---
Internal Medicine - PN: Subj *Date: 03/21/21 *Time: 08:47 Interval history: pt laying in bed, states pain in back and neck worsens due to vomiting. pt had a emesis bag next to him with contents in bag. pt states breathing is ok. Exam Vital signs and Labs for Last 24 Hours: Temp Pulse Resp BP Pulse Ox 98.4 F 50 L 18 147/74 H 99 03/21/21 07:56 03/21/21 08:00 03/21/21 07:56 03/21/21 07:56 03/21/21 07:56 Laboratory Results - last 24 hr 03/20/21 09:43: Lactate 1.5 03/21/21 06:47: Sodium 137, Potassium 4.2, Chloride 108 H, Carbon Dioxide 18 L, Anion Gap 15.2 H, BUN 59 H, Creatinine 2.10 H D, Estimated Creat Clear 41, Estimated GFR 33 L, Est GFR ( Amer) 40 L D, Glucose 82 D, Calcium 8.2 L, Total Bilirubin 0.2, Direct Bilirubin 0.1, Conjugated Bilirubin 0.0, Indirect Bilirubin 0.1, Unconjugated Bilirubin 0.1, AST 40, ALT 14 D, Alkaline Phosphatase 58, Total Protein 6.1 L, Albumin 3.4 L D I & O for Last 24 hours: Intake & Output 03/18/21 03/19/21 03/20/21 03/21/21 11:59 11:59 11:59 11:59 Intake Total 1200 / 1200 Output Total 550 / 550 Balance 650 / 650 Weight 158 lb 4 oz 159 lb 4 oz - Constitutional no acute distress - *Routine HEENT Exam Head: Present: normocephalic Eye: Present: PERRL ENT: Present: mucous membranes moist - *Routine Neck Exam Present: supple. Absent: lymphadenopathy - *Routine Respiratory Exam Present: decreased breath sounds, rhonchi - *Routine Cardiovascular Exam Present: RRR - *Routine Abdominal Exam Present: soft, normoactive bowel sounds. Absent: tenderness - *Routine Extremities Exam Present: normal capillary refill. Absent: cyanosis, clubbing, edema - *Routine Skin Exam Present: warm. Absent: rash - *Routine Neurological Exam Present: alert, oriented X3 Assessment and Plan (1) Chronic pain disorder Status: Acute Category: Medical Code(s): G89.4 - Chronic pain syndrome (2) Acute kidney injury Status: Acute Category: Medical Code(s): N17.9 - Acute kidney failure, unspecified (3) COVID-19 virus infection Status: Acute Category: Medical Code(s): U07.1 - COVID-19 (4) Degenerative disc disease, cervical Status: Chronic Category: Medical Code(s): M50.30 - Other cervical disc degeneration, unspecified cervical region (5) Degenerative disc disease, lumbar Status: Chronic Category: Medical Code(s): M51.36 - Other intervertebral disc degeneration, lumbar region - Assessment and plan all Dx Assessment and Plan for all problems:: rounded with dr amaya all orders per dr amaya pulm consult repeat bmp at 1500- improved this am to 2.1
--- NOTE | 2021-03-21 12:20 | PC.NURSE ---
PT IS RESTING IN BED. PT'S ONLY COMPLAINT IS NAUSEA/VOMITING. PT HAS VOMITED SEVERAL TIMES THIS SHIFT. LUNG SOUNDS DIMINISHED. ABDOMEN SOFT/NON TENDER. O2 SATURATION HAS MAINTAINED 95-98% ON ROOM AIR. WILL CONTINUE TO MONITOR.
--- NOTE | 2021-03-21 14:01 | CT_ITS ---
PROCEDURE: CT ABDOMEN PELVIS WO CON CLINICAL INDICATION: NAUSEA/VOMITING COMPARISON: CT CT ABDOMEN PELVIS WO CON from 10/11/2020 CR XR CHEST PORTABLE from 03/20/2021 TECHNIQUE: Axial images obtained with sagittal and coronal reformats. All CT scans at the facility use one or more dose reduction, viz: automated exposure control, ma/kV adjustment per patient size (including targeted exams where dose is matched to indication, i.e. head), or iterative reconstruction technique. FINDINGS: LOWER THORAX: Peripheral ground-glass attenuation is present in both lower lobes consistent with atypical pneumonia. ABDOMEN & PELVIS: The liver, spleen, adrenal glands, and pancreas have an unremarkable appearance. No renal or ureteral calculi or hydronephrosis. There are small left renal cyst measuring 2.4 and 1.4 cm. No intestinal obstruction or free air. No evidence of appendicitis or diverticulitis. Small amount of subcutaneous gas is present along the anterior abdominal wall in the right and could be due to recent injections. Bowel gas pattern is nonspecific. The prostate is enlarged with severe coarse calcification. The prostate measures 5.2 x 4.7 cm. There is a small left bladder diverticulum posteriorly and also 1 anteriorly. Chronic degenerative changes are present in the lumbar spine.. There is a bilateral pars defect at L3. A pain pump is present with the intrathecal tip at T10-T11 and the generator in the right flank region. There is a small umbilical hernia containing fat. IMPRESSION: 1. Bilateral multifocal pneumonia which may be seen with atypical/Covid19 pneumonia. 2. No acute intra-abdominal findings. 3. Enlarged prostate with coarse calcifications Dictated by: Rayshawn Romero MD 03/21/2021 16:32 Rayshawn Romero MD in [place] 03/21/2021 16:32
--- NOTE | 2021-03-21 14:01 | HMH.PULMCON ---
*Admission Date: 03/20/21 *Reason for consult:: COVID-19 pneumonia *History of present illness: Mr. Perez is a 55-year-old male presented to hospital with nausea vomiting and decreased p.o. intake and also tested positive for COVID-19 pneumonia on presentation late and pulmonary was called for further management. He is yet to be vaccinated. [facility] History Medical History: Reports:: Coronary Artery Disease, Cerebrovascular Accident, Hyperlipidemia, Hypertension, Kidney Stones, Transient Ischemic Attacks (TIA) Denies:: Cancer, Diabetes Mellitus Type 1, Diabetes Mellitus Type 2, Internal Pacemaker, Lung Disease, MRSA, Seizures *Have you ever received a pneumonia vaccine?: No *Have you received a flu vaccine this season?: No Other Medical History: Reports: Other. Denies: Blood Transfusion Reaction Other Surgeries: Yes: No Previous Surgery, Cardiac Catheterization, Cardiac Surgery, Colonoscopy, Other (PAIN PUMP IMPLANT). No: Pacemaker Amputation: No Fractures: Yes (back, neck) - *Social History Last grade of school completed: High school graduate Smoking Status: Current every day smoker Tobacco Type: cigarettes # Packs/Day (cigarettes): 1 #Yrs smoked (if former smoker): 40 Alcohol Intake: never Alcohol Intake Frequency:: holidays/special occasions only Substance Use Type: marijuana *Occupational Status:: retired Housing: house Household Members: other *Travel in the last 8 weeks: None Family Hx:: Cancer, Coronary Artery Disease ROS - Cons Denies anorexia, Denies body ache(s), Denies chills - ENT Denies bleeding gums - Card Denies shortness of breath, Denies shortness of breath with activity - Resp Respiratory: Denies chest congestion, Denies cough, Denies non-productive cough, Denies dyspnea on exertion, Denies excessive phlegm production, Denies pain with cough, Denies cough with sputum production, Denies pain with breathing - GI Gastrointestingal: Reports: abdominal pain, nausea, vomiting - Psych Denies thoughts of hurting/killing others, Denies thoughts of hurting/killing yourself Meds Home Medications Medication Instructions Recorded Confirmed Type Aspirin [Low Dose Aspirin EC] 81 mg PO DAILY 03/20/21 03/20/21 History Atorvastatin Calcium [Lipitor 40mg 40 mg PO HS 03/20/21 03/20/21 History Tab] Lisinopril/Hydrochlorothiazide 1 each PO DAILY 03/20/21 03/20/21 History [Lisinopril-Hctz 20-25 mg Tab] bisoproloL fumarate [Bisoprolol 5 mg PO DAILY 03/20/21 03/20/21 History Fumarate] buPROPion HCL [Wellbutrin XL] 150 mg PO DAILY 03/20/21 03/20/21 History Allergies Allergy/AdvReac Type Severity Reaction Status Date / Time No Known Allergies Allergy Verified 02/04/21 13:33 Exam - Constitutional Constitutional:: Present: no acute distress, comfortable - HENMT Exam HENMT: Present: normocephalic, atraumatic - Eye Exam Eyes:: Present: normal appearance both eyes and related structures - Neck Exam Neck:: Present: normal visual inspection - Respiratory Exam Respiratory:: Present: able to speak in complete sentences, no respiratory distress. Absent: respiratory distress, accessory muscle use, wheezing - Cardiovascular Exam Cardiac:: Present: S1, S2 - GI Exam GI:: Present: soft, no tenderness - Skin Exam Skin: Present: warm - Neurological Exam Neurological: Present: alert, awake, normal cognition - Extremities Exam Extremities: Present: no cyanosis, no clubbing, no edema Internal Medicine - CN: Reslt - Labs CBC & Chem 7: 03/20/21 07:39 03/21/21 06:47 Labs: BMP 03/21/21 06:47 Sodium 137 Potassium 4.2 Chloride 108 H Carbon Dioxide 18 L BUN 59 H Creatinine 2.10 H D Glucose 82 D Calcium 8.2 L Liver Function 03/21/21 Range/Units 06:47 Total Bilirubin 0.2 (0.2-1.3) mg/dl Direct Bilirubin 0.1 (0.0-0.4) mg/dl AST 40 (17-59) U/L ALT 14 D (12-78) U/L Alkaline Phosphatase 58 (38-126) U/L Albumin 3.4 L D (3.5-5.0) g/dl
[2021-03-21 14:36] LABS: Amylase 258 U/L (30-110); Anion Gap 16.1 mEq/L (5-15); Blood Urea Nitrogen 59 mg/dl (9-20); Calcium 8.3 mg/dl (8.4-10.2); Carbon Dioxide 16 mmol/L (22.0-30.0); Chloride 109 mmol/L (98-107); Creatinine Clearance Estimated 43 mL/min (50-200); Estimated Glomerular Filt Rate 35 ml/min (>60); GFR (African American) 42 ML/MIN (>60); Glucose 83 mg/dl (74-100); Potassium 4.1 mmoL/L (3.5-5.1); Sodium 137 mmol/L (136-145)
[2021-03-21 14:49] LABS: Lipase 800 U/L (23-300)
--- NOTE | 2021-03-21 22:13 | PC.NURSE ---
pt transferred via wheelchair to ICU/covid unit for pt overflow in satisfactory condition with personal belongings
[2021-03-22] VITALS (7 sets, daily range): BP systolic 128–168; BP diastolic 52–100; PULSE 59–73; RESP 16–22; TEMP 36.6–37.2; O2SAT 93–99; BMI 22.9
--- NOTE | 2021-03-22 04:34 | PC.NURSE ---
Patient has had one episode of nausea this RN's shift. Patient was treated per MAR with phenergan, with favorable results. Patient has rested this shift. He has also had one episode of hiccups thus far. Patient has voiced no other complaints.
--- NOTE | 2021-03-22 06:47 | HMH.GSCON ---
*Admission Date: 03/20/21 *Reason for consult:: Pancreatitis. Possible gallstones. *History of present illness: This is a 55-year-old gentleman who presented to the emergency department 2 days ago with increasing nausea, vomiting, and diarrhea x3 days. Evaluation revealed acute kidney injury and Covid positivity. He was admitted to his primary service for further evaluation and management. He has remained afebrile with minimal respiratory complaints. He states that he had minimal shortness of air earlier today. He continues to have intermittent nausea; however, this is improved. With regard to vomiting and diarrhea he states that that is better now . He has no abdominal pain. No fevers. No jaundice. Biochemical evidence of pancreatitis was confirmed (amylase 258 and lipase 800). Of note, his lipase in September of this year was 560. Reportedly, a CT scan a few years ago revealed changes consistent with possible gallstones. Forwarded from pulmonology consult: Mr. Perez is a 55-year-old male presented to hospital with nausea vomiting and decreased p.o. intake and also tested positive for COVID-19 pneumonia on presentation late and pulmonary was called for further management. He is yet to be vaccinated. Review of Systems - Constitutional Denies chills - Eyes Denies change in vision - ENT Denies difficulty swallowing - *Cardiovascular Denies chest pain - *Respiratory Denies wheezing - *Gastrointestinal Reports nausea, Reports vomiting, Denies abdominal pain - *Neurologic Reports radiating pain, Denies confusion, Denies localized weakness, Denies headache(s) [facility] History Medical History: Reports:: Coronary Artery Disease, Cerebrovascular Accident, Hyperlipidemia, Hypertension, Kidney Stones, Transient Ischemic Attacks (TIA) Denies:: Cancer, Diabetes Mellitus Type 1, Diabetes Mellitus Type 2, Internal Pacemaker, Lung Disease, MRSA, Seizures *Have you ever received a pneumonia vaccine?: No *Have you received a flu vaccine this season?: No Other Medical History: Reports: Other. Denies: Blood Transfusion Reaction Other Surgeries: Yes: No Previous Surgery, Cardiac Catheterization, Cardiac Surgery, Colonoscopy, Other (PAIN PUMP IMPLANT). No: Pacemaker Amputation: No Fractures: Yes (back, neck) - *Social History Last grade of school completed: High school graduate Smoking Status: Current every day smoker Tobacco Type: cigarettes # Packs/Day (cigarettes): 1 #Yrs smoked (if former smoker): 40 Alcohol Intake: never Alcohol Intake Frequency:: holidays/special occasions only Substance Use Type: marijuana *Occupational Status:: retired Housing: house Household Members: other *Travel in the last 8 weeks: None Family Hx:: Cancer, Coronary Artery Disease Meds Home Medications Medication Instructions Recorded Confirmed Type Aspirin [Low Dose Aspirin EC] 81 mg PO DAILY 03/20/21 03/20/21 History Atorvastatin Calcium [Lipitor 40mg 40 mg PO HS 03/20/21 03/20/21 History Tab] Lisinopril/Hydrochlorothiazide 1 each PO DAILY 03/20/21 03/20/21 History [Lisinopril-Hctz 20-25 mg Tab] bisoproloL fumarate [Bisoprolol 5 mg PO DAILY 03/20/21 03/20/21 History Fumarate] buPROPion HCL [Wellbutrin XL] 150 mg PO DAILY 03/20/21 03/20/21 History Allergies Allergy/AdvReac Type Severity Reaction Status Date / Time No Known Allergies Allergy Verified 02/04/21 13:33 Exam Vital signs and Labs for Last 24 Hours: Temp Pulse Resp BP Pulse Ox 97.9 F 73 18 128/87 98 03/22/21 04:00 03/22/21 04:00 03/22/21 04:00 03/22/21 04:00 03/22/21 04:00 Laboratory Results - last 24 hr 03/21/21 06:47: Sodium 137, Potassium 4.2, Chloride 108 H, Carbon Dioxide 18 L, Anion Gap 15.2 H, BUN 59 H, Creatinine 2.10 H D, Estimated Creat Clear 41, Estimated GFR 33 L, Est GFR ( Amer) 40 L D, Glucose 82 D, Calcium 8.2 L, Total Bilirubin 0.2, Direct Bilirubin 0.1, Conjugated Bilirubin 0.0, Indirect Bilirubin 0.1, Unconj
[2021-03-22 08:32] LABS: Basophils % 0.3 % (0.1-2.0); Hematocrit 43.7 % (42.0-52.0); Hemoglobin 15.2 g/dL (14.1-18.0); Lymphocytes # 1.7 K/mm3 (0.7-4.5); Lymphocytes % 19.2 % (10-50); Mean Corpuscular HGB Conc 34.7 g/dL (31.8-35.4); Mean Corpuscular Hemoglobin 29.8 pg (27.0-31.2); Mean Platelet Volume 8.7 fl (7.4-10.4); Monocytes # 0.6 K/mm3 (0.1-1.0); Monocytes % 6.3 % (1.7-9.3); Neutrophils # 6.6 K/mm3 (1.8-7.8); Neutrophils % 74.2 % (37.0-80.0); Platelet Count 158 K/mm3 (142-424); Red Blood Count 5.09 M/mm3 (4.60-6.20); Red Cell Distribution Width 14.7 % (11.5-17.5); White Blood Count 8.9 K/mm3 (4.8-10.8)
[2021-03-22 08:35] LABS: Amylase 177 U/L (30-110); Lipase 414 U/L (23-300)
--- NOTE | 2021-03-22 08:59 | US_ITS ---
PROCEDURE: US GALLBLADDER CLINICAL INDICATION: gallstones,elevated amylase,lipase COMPARISON: No exams were available for comparison FINDINGS: Pancreas: Pancreas is not well delineated due to overlying bowel gas. Liver: Unremarkable. There is appropriate direction of blood flow within a non dilated portal vein. Right kidney: Unremarkable appearing. No hydronephrosis. Gallbladder: No shadowing stones are apparent. Small polyp is present in the gallbladder posteriorly measuring 4 mm. No ductal dilatation. No gallbladder wall thickening or pericholecystic fluid. IMPRESSION: Small gallbladder polyp. Poor visualization of the pancreas Otherwise negative right upper quadrant ultrasound Dictated by: Rayshawn Romero MD 03/22/2021 17:05 Rayshawn Romero MD in [place] 03/22/2021 17:05
[2021-03-22 09:06] LABS: Alanine Aminotransferase 12 U/L (12-78); Albumin Level 3.4 g/dl (3.5-5.0); Albumin/Globulin Ratio 1.2 (1.1-1.8); Alkaline Phosphatase 57 U/L (38-126); Anion Gap 14.1 mEq/L (5-15); Aspartate Amino Transferase 52 U/L (17-59); Bilirubin,Total 0.4 mg/dl (0.2-1.3); Blood Urea Nitrogen 53 mg/dl (9-20); Calcium 8.4 mg/dl (8.4-10.2); Carbon Dioxide 16 mmol/L (22.0-30.0); Chloride 111 mmol/L (98-107); Creatinine Clearance Estimated 43 mL/min (50-200); Estimated Glomerular Filt Rate 35 ml/min (>60); GFR (African American) 42 ML/MIN (>60); Globulin 2.8 g/dL (1.3-3.2); Glucose 83 mg/dl (74-100); Potassium 4.1 mmoL/L (3.5-5.1); Sodium 137 mmol/L (136-145); Total Protein,Serum 6.2 g/dl (6.3-8.2)
--- NOTE | 2021-03-22 09:26 | HMH.PULMPN ---
Internal Medicine - PN: Subj *Date: 03/22/21 *Time: 09:26 Assessment and Plan (1) Chronic pain disorder Status: Acute Category: Medical Code(s): G89.4 - Chronic pain syndrome (2) Acute kidney injury Status: Acute Category: Medical Code(s): N17.9 - Acute kidney failure, unspecified (3) COVID-19 virus infection Status: Acute Category: Medical Code(s): U07.1 - COVID-19 (4) Degenerative disc disease, cervical Status: Chronic Category: Medical Code(s): M50.30 - Other cervical disc degeneration, unspecified cervical region (5) Degenerative disc disease, lumbar Status: Chronic Category: Medical Code(s): M51.36 - Other intervertebral disc degeneration, lumbar region (6) Pancreatitis Status: Acute Category: Medical Code(s): K85.90 - Acute pancreatitis without necrosis or infection, unspecified - Assessment and plan all Dx Assessment and Plan for all problems:: #COVID-19 pneumonia: 55-year-old no prior respiratory complaints yet to be vaccinated. Presented with complaining of nausea vomiting and decreased p.o. intake. Positive sick contacts. Tested positive for COVID-19 pneumonia. On room air with no respiratory distress. Chest x-ray within normal limits except for questionable right lower lobe airspace disease. Afebrile. No evidence of leukocytosis. Also noted to have BETO, improving. Patient was initiated on remdesivir dexamethasone levofloxacin upon admission. Patient lipase is significantly elevated followed by CT abdomen that did not show any evidence of pancreatitis. Lipase improving. Bilateral lower lobe airspace disease noted on his CT abdomen. Plan: -Follow with D-dimer and CRP. -Continue remdesivir for a total of 5 days along with dexamethasone along with GI ulcer prophylaxis -Continue levofloxacin for total of 5 days. -Monitor clinically. #Thank you involving pulmonary in this patient care. We will continue to follow.
--- NOTE | 2021-03-22 12:17 | HMH.ACPN2 ---
Internal Medicine - PN: Subj *Date: 03/22/21 *Time: 09:17 Interval history: 55 YOM sitting up in bed, denies resp distress during night. He does report decrease in nausea episodes. General Surgery has seen and recommends. Even if gallstones are evident per ultrasound, the risks of surgical intervention currently likely outweigh any benefit (unless changes consistent with acute cholecystitis are confirmed). However, if gallstones are noted per ultrasound, cholecystectomy in the near future (once he is outside the timeframe for isolation and the likelihood of Covid pneumonia exacerbation wanes) is warranted. Ultrasound pending Exam Vital signs and Labs for Last 24 Hours: Temp Pulse Resp BP Pulse Ox 99 F 69 18 168/100 H 95 03/22/21 08:00 03/22/21 08:00 03/22/21 08:00 03/22/21 08:00 03/22/21 08:00 Laboratory Results - last 24 hr 03/21/21 14:15: Sodium 137, Potassium 4.1, Chloride 109 H, Carbon Dioxide 16 L, Anion Gap 16.1 H, BUN 59 H, Creatinine 2.00 H, Estimated Creat Clear 43, Estimated GFR 35 L, Est GFR ( Amer) 42 L, Glucose 83, Calcium 8.3 L, Amylase 258 H 03/21/21 14:15: Lipase 800 H 03/22/21 08:15: WBC 8.9, RBC 5.09, Hgb 15.2, Hct 43.7, MCV 86.0, MCH 29.8, MCHC 34.7, RDW 14.7, Plt Count 158, MPV 8.7, Neut % (Auto) 74.2, Lymph % (Auto) 19.2, [place] % (Auto) 6.3, Eos % (Auto) 0.0 L, Baso % (Auto) 0.3, Neut # (Auto) 6.6, Lymph # (Auto) 1.7, [place] # (Auto) 0.6, Eos # (Auto) 0.0, Baso # (Auto) 0.0 03/22/21 08:15: Sodium 137, Potassium 4.1, Chloride 111 H, Carbon Dioxide 16 L, Anion Gap 14.1, BUN 53 H, Creatinine 2.00 H, Estimated Creat Clear 43, Estimated GFR 35 L, Est GFR ( Amer) 42 L, Glucose 83, Calcium 8.4, Total Bilirubin 0.4, AST 52 D, ALT 12, Alkaline Phosphatase 57, Total Protein 6.2 L, Albumin 3.4 L, Globulin 2.8, Albumin/Globulin Ratio 1.2 03/22/21 08:15: Amylase 177 H D, Lipase 414 H I & O for Last 24 hours: Intake & Output 03/19/21 03/20/21 03/21/21 03/22/21 23:59 23:59 23:59 23:59 Intake Total 600 / 600 840 / 840 Output Total 550 / 550 200 / 200 Balance 50 / 50 840 / 840 -200 / -200 Weight 158 lb 4 oz 159 lb 4 oz 160 lb 7.944 oz - Constitutional no acute distress - *Routine HEENT Exam Head: Present: normocephalic Eye: Present: EOMI ENT: Present: mucous membranes moist - *Routine Neck Exam Present: trachea midline. Absent: tracheal deviation - *Routine Respiratory Exam Present: decreased breath sounds. Absent: accessory muscle use - *Routine Cardiovascular Exam Present: RRR - *Routine Abdominal Exam Present: soft, normoactive bowel sounds. Absent: tenderness, firm - *Routine Extremities Exam Present: full ROM, pulses intact. Absent: cyanosis, clubbing, edema, calf tenderness - *Routine Skin Exam Present: intact, dry. Absent: cyanosis, erythema - *Routine Neurological Exam Present: alert, oriented X3. Absent: motor deficit - Routine Psychiatric Exam Present: normal affect, normal thought process. Absent: visual hallucinations Assessment and Plan (1) Chronic pain disorder Status: Acute Category: Medical Code(s): G89.4 - Chronic pain syndrome (2) Acute kidney injury Status: Acute Category: Medical Code(s): N17.9 - Acute kidney failure, unspecified (3) COVID-19 virus infection Status: Acute Category: Medical Code(s): U07.1 - COVID-19 (4) Degenerative disc disease, cervical Status: Chronic Category: Medical Code(s): M50.30 - Other cervical disc degeneration, unspecified cervical region (5) Degenerative disc disease, lumbar Status: Chronic Category: Medical Code(s): M51.36 - Other intervertebral disc degeneration, lumbar region (6) Pancreatitis Status: Acute Category: Medical Code(s): K85.90 - Acute pancreatitis without necrosis or infection, unspecified (7) Pneumonia due to COVID-19 virus Status: Acute Category: Medical Code(s): U07.1 - COVID-19; J12.82 - Pneumonia due to coronavirus disease 2
[2021-03-23 04:00] VITALS: BP 140/93; PULSE 80; RESP 20; TEMP 36.6; O2SAT 96
[2021-03-23 05:00] VITALS: BMI 22.9
--- NOTE | 2021-03-23 06:50 | HMH.GSPN ---
Subjective Patient reports: feels better Narrative: No abdominal pain. He states that his nausea has pretty much gone away and that he is very hungry . Progress Note: A&P (1) Chronic pain disorder Status: Acute (2) Acute kidney injury Status: Acute (3) COVID-19 virus infection Status: Acute (4) Degenerative disc disease, cervical Status: Chronic (5) Degenerative disc disease, lumbar Status: Chronic (6) Pancreatitis Status: Acute Assessment and plan: Biochemically improving. Etiology remains equivocal. No definitive evidence of biliary (stone) source. He does have a small gallbladder polyp that will require ongoing follow-up; however, no evidence of acute cholecystitis or definitive evidence of biliary pathology with regard to pancreatitis is noted. He continues to improve with regard to symptomatology. Full liquid diet ordered (7) Pneumonia due to COVID-19 virus Status: Acute Exam Vital signs and Labs for Last 24 Hours: Temp Pulse Resp BP Pulse Ox 98.4 F 68 18 133/87 99 03/22/21 23:52 03/22/21 23:52 03/22/21 23:52 03/22/21 23:52 03/22/21 23:52 Laboratory Results - last 24 hr 03/22/21 08:15: WBC 8.9, RBC 5.09, Hgb 15.2, Hct 43.7, MCV 86.0, MCH 29.8, MCHC 34.7, RDW 14.7, Plt Count 158, MPV 8.7, Neut % (Auto) 74.2, Lymph % (Auto) 19.2, [place] % (Auto) 6.3, Eos % (Auto) 0.0 L, Baso % (Auto) 0.3, Neut # (Auto) 6.6, Lymph # (Auto) 1.7, [place] # (Auto) 0.6, Eos # (Auto) 0.0, Baso # (Auto) 0.0 03/22/21 08:15: Sodium 137, Potassium 4.1, Chloride 111 H, Carbon Dioxide 16 L, Anion Gap 14.1, BUN 53 H, Creatinine 2.00 H, Estimated Creat Clear 43, Estimated GFR 35 L, Est GFR ( Amer) 42 L, Glucose 83, Calcium 8.4, Total Bilirubin 0.4, AST 52 D, ALT 12, Alkaline Phosphatase 57, Total Protein 6.2 L, Albumin 3.4 L, Globulin 2.8, Albumin/Globulin Ratio 1.2 03/22/21 08:15: Amylase 177 H D, Lipase 414 H I & O for Last 24 hours: Intake & Output 03/20/21 03/21/21 03/22/21 03/23/21 11:59 11:59 11:59 11:59 Intake Total 1200 / 1200 240 / 240 Output Total 550 / 550 200 / 200 400 / 400 Balance 650 / 650 40 / 40 -400 / -400 Weight 158 lb 4 oz 159 lb 4 oz 160 lb 7.944 oz 160 lb 7.944 oz Microbiology Reports for the Last 24 Hours: Microbiology 03/20/21 09:43 Blood Blood Culture - Preliminary NO GROWTH AFTER 48 HOURS 03/20/21 09:43 Blood Blood Culture - Preliminary NO GROWTH AFTER 48 HOURS Radiology Reports for the Last 24 Hours: Ultrasound revealed small gallbladder polyp. No stones or changes consistent with cholecystitis noted. - Constitutional no acute distress - *Routine Respiratory Exam Absent: respiratory distress - *Routine Cardiovascular Exam Present: RRR - *Routine Abdominal Exam Present: soft. Absent: tenderness
[2021-03-23 08:00] VITALS: BP 153/96; PULSE 107; RESP 18; TEMP 36.8; O2SAT 95
[2021-03-23 09:47] LABS: Basophils # 0.1 K/mm3 (0-0.2); Basophils % 0.6 % (0.1-2.0); Eosinophils % 0.2 % (0.1-12.0); Hematocrit 45.3 % (42.0-52.0); Hemoglobin 15.5 g/dL (14.1-18.0); Lymphocytes # 1.8 K/mm3 (0.7-4.5); Lymphocytes % 18.6 % (10-50); Mean Corpuscular HGB Conc 34.2 g/dL (31.8-35.4); Mean Corpuscular Hemoglobin 29.9 pg (27.0-31.2); Mean Corpuscular Volume 87.4 fl (80-94); Mean Platelet Volume 9.3 fl (7.4-10.4); Monocytes # 0.6 K/mm3 (0.1-1.0); Monocytes % 5.7 % (1.7-9.3); Neutrophils # 7.2 K/mm3 (1.8-7.8); Neutrophils % 74.9 % (37.0-80.0); Platelet Count 112 K/mm3 (142-424); Red Blood Count 5.18 M/mm3 (4.60-6.20); Red Cell Distribution Width 15.3 % (11.5-17.5); White Blood Count 9.6 K/mm3 (4.8-10.8)
[2021-03-23 09:51] LABS: Alanine Aminotransferase 12 U/L (12-78); Albumin Level 3.1 g/dl (3.5-5.0); Albumin/Globulin Ratio 1.1 (1.1-1.8); Alkaline Phosphatase 58 U/L (38-126); Anion Gap 12.9 mEq/L (5-15); Aspartate Amino Transferase 60 U/L (17-59); Bilirubin,Total 0.7 mg/dl (0.2-1.3); Blood Urea Nitrogen 41 mg/dl (9-20); Calcium 8.3 mg/dl (8.4-10.2); Carbon Dioxide 17 mmol/L (22.0-30.0); Chloride 114 mmol/L (98-107); Creatinine Clearance Estimated 46 mL/min (50-200); Estimated Glomerular Filt Rate 37 ml/min (>60); GFR (African American) 45 ML/MIN (>60); Globulin 2.8 g/dL (1.3-3.2); Glucose 85 mg/dl (74-100); Potassium 3.9 mmoL/L (3.5-5.1); Sodium 140 mmol/L (136-145); Total Protein,Serum 5.9 g/dl (6.3-8.2)
--- NOTE | 2021-03-23 10:21 | PC.NURSE ---
[id number] cleared from IV pump
--- NOTE | 2021-03-23 11:01 | P.PN_ITS ---
Internal Medicine - PN: Subj *Date: 03/23/21 *Time: 11:01 Interval history: No acute respiratory vents in the last 48 hours. Patient continued to remain on room air. Exam - Constitutional Constitutional:: Present: no acute distress, comfortable - HENMT Exam HENMT: Present: normocephalic, atraumatic - Eye Exam Eyes:: Present: normal appearance both eyes and related structures - Neck Exam Neck:: Present: normal visual inspection - Respiratory Exam Respiratory:: Present: able to speak in complete sentences, normal breath sounds, no respiratory distress - Cardiovascular Exam Cardiac:: Present: S1, S2 - Skin Exam Skin: Present: warm, no rash - Neurological Exam Neurological: Present: alert, awake, normal cognition - Extremities Exam Extremities: Present: no cyanosis, no clubbing, no edema Assessment and Plan (1) Chronic pain disorder Status: Acute Category: Medical Code(s): G89.4 - Chronic pain syndrome (2) Acute kidney injury Status: Acute Category: Medical Code(s): N17.9 - Acute kidney failure, unspecified (3) COVID-19 virus infection Status: Acute Category: Medical Code(s): U07.1 - COVID-19 (4) Degenerative disc disease, cervical Status: Chronic Category: Medical Code(s): M50.30 - Other cervical disc degeneration, unspecified cervical region (5) Degenerative disc disease, lumbar Status: Chronic Category: Medical Code(s): M51.36 - Other intervertebral disc degeneration, lumbar region (6) Pancreatitis Status: Acute Category: Medical Code(s): K85.90 - Acute pancreatitis without necrosis or infection, unspecified (7) Pneumonia due to COVID-19 virus Status: Acute Category: Medical Code(s): U07.1 - COVID-19; J12.82 - Pneumonia due to coronavirus disease 2019 - Assessment and plan all Dx Assessment and Plan for all problems:: #COVID-19 pneumonia: 55-year-old no prior respiratory complaints yet to be vaccinated. Presented with complaining of nausea vomiting and decreased p.o. intake. Positive sick contacts. Tested positive for COVID-19 pneumonia. On room air with no respiratory distress. Chest x-ray within normal limits except for questionable right lower lobe airspace disease. Afebrile. No evidence of leukocytosis. Also noted to have BETO, improving. Patient was initiated on remdesivir dexamethasone levofloxacin upon admission. Patient lipase is significantly elevated followed by CT abdomen that did not show any evidence of pancreatitis. Amylase and lipase improving along with patient's increased tolerance to oral feeds. Surgery following. CT abdomen also showed bilateral lower lobe, right greater than left groundglass opacities. Patient respiratory status remained stable since admission has been on room air with no respiratory distress. Plan: -Continue remdesivir for a total of 5 days/until discharge along with [id number] days along with GI ulcer prophylaxis -Continue levofloxacin for total of 5 days. -Monitor clinically. Thank you for involving pulmonary at this point of time. We will continue to gabbie jones.
[2021-03-23 11:37] VITALS: BMI 23.0
[2021-03-23 12:00] VITALS: BP 146/99; PULSE 89; RESP 18; TEMP 37; O2SAT 95
--- NOTE | 2021-03-23 14:14 | HMH.DCSUM ---
General - General Admission date:: 03/20/21 Discharge date: 03/23/21 HPI HPI: this patient presented to the ed with dec po intake over the last few days-pt to ed per pvt car. pt states he hasnt been able to keep anything down since night. pt states he has had n/v/d since . pt also c/o generalized body aches. pt denies abd pain. pt states he has not been around anyone sick recently. 3-day history of vomiting and diarrhea. He has not noted any fever at home. Denies abdominal pain except from soreness from vomiting. States the only cough he has is when he gags from vomiting. Has not noted any blood in stool. He says that the kids next-door have Covid, but he has not seen them in a week. He has not been vaccinated against Covid. No recent travel, hospitalizations, antibiotic. He states his whole body hurts. He has a history of chronic neck and back pain. He has been through pain management. He says he is not on any pain medication right now. He has failed a pain pump. He is requesting pain medication. pt was seen in the ed and has covid-19 and yuli and was admitted for ivf and covid-19 treatment Hospital Course Hospital Course: Laboratory Tests 03/20/21 03/20/21 03/20/21 07:39 07:39 07:39 WBC 8.6 RBC 5.65 Hgb 17.1 Hct 48.0 MCV 84.9 MCH 30.2 MCHC 35.5 H RDW 14.7 Plt Count 172 MPV 9.5 Neut % (Auto) 71.8 Lymph % (Auto) 19.4 [place] % (Auto) 7.3 Eos % (Auto) 0.1 Baso % (Auto) 1.3 Neut # (Auto) 6.2 Lymph # (Auto) 1.7 [place] # (Auto) 0.6 Eos # (Auto) 0.0 Baso # (Auto) 0.1 Sodium 132 L Potassium 3.6 Chloride 95 L Carbon Dioxide 21 L Anion Gap 19.6 H BUN 78 H Creatinine 3.10 H Estimated Creat Clear 29 Estimated GFR 21 L Est GFR ( Amer) 26 L Glucose 103 H Lactate Calcium 8.9 Total Bilirubin 0.4 Direct Bilirubin Conjugated Bilirubin Indirect Bilirubin Unconjugated Bilirubin AST 41 ALT 22 Alkaline Phosphatase 77 Total Protein 7.7 Albumin 4.5 Globulin 3.2 Albumin/Globulin Ratio 1.4 Amylase Lipase SARS-CoV-2 (PCR) Detected A Influenza A Untype (PCR) Not detected Influenza Type B (PCR) Not detected 03/20/21 03/21/21 03/21/21 09:43 06:47 14:15 WBC RBC Hgb Hct MCV MCH MCHC RDW Plt Count MPV Neut % (Auto) Lymph % (Auto) [place] % (Auto) Eos % (Auto) Baso % (Auto) Neut # (Auto) Lymph # (Auto) [place] # (Auto) Eos # (Auto) Baso # (Auto) Sodium 137 137 Potassium 4.2 4.1 Chloride 108 H 109 H Carbon Dioxide 18 L 16 L Anion Gap 15.2 H 16.1 H BUN 59 H 59 H Creatinine 2.10 H D 2.00 H Estimated Creat Clear 41 43 Estimated GFR 33 L 35 L Est GFR ( Amer) 40 L D 42 L Glucose 82 D 83 Lactate 1.5 Calcium 8.2 L 8.3 L Total Bilirubin 0.2 Direct Bilirubin 0.1 Conjugated Bilirubin 0.0 Indirect Bilirubin 0.1 Unconjugated Bilirubin 0.1 AST 40 ALT 14 D Alkaline Phosphatase 58 Total Protein 6.1 L Albumin 3.4 L D Globulin Albumin/Globulin Ratio Amylase 258 H Lipase SARS-CoV-2 (PCR) Influenza A Untype (PCR) Influenza Type B (PCR) 03/21/21 03/22/21 03/22/21 14:15 08:15 08:15 WBC 8.9 RBC 5.09 Hgb 15.2 Hct 43.7 MCV 86.0 MCH 29.8 MCHC 34.7 RDW 14.7 Plt Count 158 MPV 8.7 Neut % (Auto) 74.2 Lymph % (Auto) 19.2 [place] % (Auto) 6.3 Eos % (Auto) 0.0 L Baso % (Auto) 0.3 Neut # (Auto) 6.6 Lymph # (Auto) 1.7 [place] # (Auto) 0.6 Eos # (Auto) 0.0 Baso # (Auto) 0.0 Sodium 137 Potassium 4.1 Chloride 111 H Carbon Dioxide 16 L Anion Gap 14.1 BUN 53 H Creatinine 2.00 H Estimated Creat Clear 43 Estimated GFR 35 L Est GFR ( Amer) 42 L Glucose 83 Lactate Calcium 8.4
== END 2021-03-23 17:30 | disposition home or self-care (01) | DRG 177 ==
LOC: ER 08:26 → 2ND 08:58 → ICU 03-21 22:12
PROVIDERS: Nurse Practitioner Family; Surgery; Admitting Provider Emergency Medicine; Emergency Provider Emergency Medicine; PCP Emergency Medicine; Visit Provider Emergency Medicine
DX: U07.1 COVID-19 (principal); J12.82 Pneumonia due to coronavirus disease 2019; K85.90 Acute pancreatitis without necrosis or infection, unspecified; I25.10 Atherosclerotic heart disease of native coronary artery without angina pectoris; N18.9 Chronic kidney disease, unspecified; I12.9 Hypertensive chronic kidney disease with stage 1 through stage 4 chronic kidney disease, or unspecified chronic kidney disease; E78.5 Hyperlipidemia, unspecified; Z86.73 Personal history of transient ischemic attack (TIA), and cerebral infarction without residual deficits; Z87.442 Personal history of urinary calculi; F17.210 Nicotine dependence, cigarettes, uncomplicated; M54.9 Dorsalgia, unspecified; M54.2 Cervicalgia; M50.30 Other cervical disc degeneration, unspecified cervical region; M51.36 Other intervertebral disc degeneration, lumbar region; G89.29 Other chronic pain
CPT/HCPCS: 36415; 71045; 74176; 76705; 80048; 80053; 80076; 82150; 83605; 83690; 85025; 87040; 87070; 87205; 93306; 96365; 96366; 96375; 99284; C9803; J1956; J2405; U0003; U0005